=== PATIENT | male | born 1940 | race Caucasian/White ===

== ENCOUNTER 2018-12-24 07:03 | Emergency (ER) | payer MEDICARE ==
[~2018-12-24] VITALS: Ht 172.7 cm; Wt 97.5 kg
--- OUTSIDE RECORDS SUMMARY | ~2018-12-24 | XMS | Encounter Summary ---
Demographics + + + | Address | [address] | | | [place] [address] | + + + | Home Phone | | + + + | Preferred Language | Unknown | + + + | Marital Status | | + + + | Nondenominational Affiliation | Unknown | + + + | Race | Unknown | + + + | Ethnic Group | Unknown | + + + Author + + + | Author | [facility] | + + + | Organization | [facility] | + + + | Address | Unknown | + + + | Phone | Unavailable | + + + Support + + +---------+ + | Name | Relationship | Address | Phone | + + +---------+ + | Johnathan Herr | ECON | Unknown | | + + +---------+ + | Cammie Herr | ECON | Unknown | | + + +---------+ + Care Team Providers + +------+ + | Care Needle Loom Operator Helper Name | Role | Phone | + +------+ + | Josh Mendoza DO | PCP | | + +------+ + Reason for Visit + + + | Reason | Comments | + + + | Cardiac | in office | | Resynchronization | | | Therapy - | | | Defibrillator | | + + + Encounter Details +--------+ + + + + | Date | Type | Department | Care Team | Description | +--------+ + + + + | 10/12/ | Documentati | [facility] | | Cardiac | | 2019 | on Only | [facility] [place] | | Resynchronization | | | | [address] | | Therapy - | | | | [place] | | Defibrillator (in | | | | [phone] | | office) | | | | [phone] | | | +--------+ + + + + Social History + +-------+ +--------+ + | Tobacco Use | Types | Packs/Day | Years | Date | | | | | Used | | + +-------+ +--------+ + | Former Smoker | | 2 | 12 | Quit: 09/27/1971 | + +-------+ +--------+ + + +---+---+---+ | Smokeless Tobacco: | | | | | Never Used | | | | + +---+---+---+ + + +---------+ + | Alcohol Use | Drinks/We | oz/Week | Comments | | | ek | | | + + +---------+ + | Yes | | | very little | + + +---------+ + + + + | Sex Assigned at | Date Recorded | | | | + + + | Not on file | | + + + as of this encounter Progress Notes Catherine Burgess MA - 10/12/2018 9:00 AM PSTDevice interrogation done by Maria R Hardy MD, EP Any events or changes listed in office note. See device data attached to scheduled encounter for additional details. Tech: Catherine Haas [facility] Associated attestation - Juan Hardy MD - 10/31/2018 2:40 PM PSTSee office noted for details.in this encounter Plan of Treatment +--------+ + + + + | Date | Type | Specialty | Care Team | Description | +--------+ + + + + | 01/23/ | Office | Family Medicine | Josh Mendoza | | | 2018 | Visit | | DO Jorge [address] | | | | | [address] | | | | | | [place] [address] | | | | | | [phone] | | | | | | | | +--------+ + + + + | 02/22/ | Office | Cardiology | Juan Hardy | | | 2018 | Visit | | MD Fred[address] | | | | | [address] | | | | | | [place] [address] | | | | | | [phone] | | | | | | | | +--------+ + + + + | 02/22/ | Documentati | Cardiology | | | | 2018 | on Only | | | | +--------+ + + + + as of this encounter Visit Diagnoses + + | Diagnosis | + + | Persistent atrial fibrillation (HCC) - Primary | + + | Atrial fibrillation | + + | Nonischemic cardiomyopathy (HCC) | + + | Other primary cardiomyopathies | + +"
--- OUTSIDE RECORDS SUMMARY | ~2018-12-24 | XMS | Clinical Summary ---
Demographics + + + | Address | [address] | | | [place] [address] | + + + | Home Phone | | + + + | Preferred Language | Unknown | + + + | Marital Status | | + + + | Restorationism Affiliation | Unknown | + + + | Race | Unknown | + + + | Ethnic Group | Unknown | + + + Author + + + | Author | [facility] | | | and [place] | + + + | Organization | [facility] | | | and [place] | + + + | Address | [...] Team Providers + +------+ + | Care Gas Shovel Operator Name | Role | Phone | + +------+ + PP | Unavailable | + +------+ + Allergies Not on File Medications Not on file Active Problems Not on file Social History + +-------+ +--------+------+ | Tobacco Use | Types | Packs/Day | Years | Date | | | | | Used | | + +-------+ +--------+------+ | Never Assessed | | | | | + +-------+ +--------+------+ + + + | Sex Assigned at | Date Recorded | | | | + + + | Not on file | | + + + + + + + | Job Start Date | Occupation | Industry | + + + + | Not on file | Not on file | Not on file | + + + + + + + + | Travel History | Travel Start | Travel End | + + + + + + | No recent travel history available. | + + Plan of Treatment + + + + + | Health Maintenance | Due Date | Last Done | Comments | + + + + + | Vaccine: | | | | | Dtap/Tdap/Td (1 - | 8 | | | | Tdap) | | | | + + + + + | Vaccine: Zoster (1 | | | | | of 2) | 9 | | | + + + + + | Vaccine: | | | | | Pneumococcal 65+ | 4 | | | | Low/Medium Risk (1 | | | | | of 2 - PCV13) | | | | + + + + + | Vaccine: Influenza | | | | | (Season Ended) | 9 | | | + + + + + Results Not on filefrom Last 3 Months"
--- OUTSIDE RECORDS SUMMARY | ~2018-12-24 | XMS | Encounter Summary ---
Demographics + + + | Address | [address] | | | [place] [address] | + + + | Home Phone | | + + + | Preferred Language | Unknown | + + + | Marital Status | | + + + | Muslim Affiliation | Unknown | + + + | Race | Unknown | + + + | Ethnic Group | Unknown | + + + Author + + + | Author | [facility] | + + + | Organization | [facility] | + + + | [...] Team Providers + +------+ + | Care Auto Parts Counter Person Name | Role | Phone | + +------+ + | Josh Mendoza DO | PCP | | + +------+ + Reason for Visit + + + | Reason | Comments | + + + | Medication Refill | | + + + Encounter Details +--------+--------+ + + + | Date | Type | Department | Care Team | Description | +--------+--------+ + + + | 10/03/ | Refill | [facility] | Mariya Bach MA | Medication Refill | | 2019 | | [facility] [place] | | | | | | [address] | | | | | | [place], [place] | | | | | | [address] | | | | | | [phone] | | | +--------+--------+ + + + Social History + +-------+ [...] + + + as of this encounter Plan of Treatment +--------+ + + + + | Date | Type | Specialty | Care Team | Description | +--------+ + + + + | 01/23/ | Office | Family Medicine | Josh Mendoza | | | 2019 | Visit | | DO Jorge [address] | | | | | [address] | | | | | | [place] [address] | | | | | | [phone] | | | | | | | | +--------+ + + + + | 02/22/ | Office | Cardiology | Juan Hardy | | | 2018 | Visit | | MD [address] | | | | | | [address] | | | | | | [place] [address] | | | | | | [phone] | | | | | | | | +--------+ + + + + | 02/22/ | Documentati | Cardiology | | | | 2019 | on Only | | | | +--------+ + + + + as of this encounter Visit Diagnoses Not on filein this encounter"
--- OUTSIDE RECORDS SUMMARY | ~2018-12-24 | XMS | Encounter Summary ---
Demographics + + + | Address | [address] | | | [place] [address] | + + + | Home Phone | | + + + | Preferred Language | Unknown | + + + | Marital Status | | + + + | Christian Affiliation | Unknown | + + + | Race | Unknown | + + + | Ethnic Group | Unknown | + + + Author + + + | Author | [facility] [facility] [employer] [facility] | + + + | Organization | [facility] | + + [...] Team Providers + +------+ + | Care Customer Success Manager Name | Role | Phone | + +------+ + | Josh Mendoza DO | PCP | | + +------+ + Reason for Visit Diagnostic Lab (Routine) +--------+--------+ + + + + | Status | Reason | Specialty | Diagnoses / | Referred By | Referred To | | | | | Procedures | Contact | Contact | +--------+--------+ + + + + | Closed | | Radiology | Diagnoses | Hayley, | [facility] Cath | | | | | Eileen(gregorio | Juan | Lab [address] | | | | | jaziel), D/C, | MD Fredi | [address] | | | | | Consent | [address] | [place], [place] | | | | | signed, | [address] | [id number] Phone: | | | | | BLOODLESS | ALONSO F | [phone] | | | | | MEDICINE | [place], [place] | | | | | | Procedures | [id number] | | | | | | CL | Phone: | | | | | | CARDIOVERSIO | [phone] | | | | | | N / DEFIB | Fax: | | | | | | | [phone] | | +--------+--------+ + + + + Encounter Details +--------+ + + + + | Date | Type | Department | Care Team | Description | +--------+ + + + + | 11/01/ | Hospital | [facility] | Juan Hardy | Persistent atrial | | 2019 | Encounter | [facility] | MD Fredi [address] | fibrillation (HCC) | | | | Lab [address] | [place] | | | | | [place] [address] | [place] [address] | | | | | [phone] | [phone] | | | | | | | | | | | | 6, [facility] Casing Fluid Tender | | +--------+ + + + + [...] + + + as of this encounter Last Filed Vital Signs + + + + | Vital Sign | Reading | Time Taken | + + + + | Blood Pressure | 120/64 | 11/01/2018 4:00 PM PST | + + + + | Pulse | 68 | 11/01/2018 4:00 PM PST | + + + + | Temperature | 36.1 C (96.9 F) | 11/01/2018 2:08 PM PST | + + + + | Respiratory Rate | 17 | 11/01/2018 3:25 PM PST | + + + + | Oxygen Saturation | 99% | 11/01/2018 4:00 PM PST | + + + + | Inhaled Oxygen | - | - | | Concentration | | | + + + + | Weight | - | - | + + + + | Height | - | - | + + + + | Body Mass Index | - | - | + + + + in this encounter Discharge Instructions Nahomy Juárez RN - 11/01/2018Formatting of this note may be different from the jr delmi. Recovery After Procedural Sedation (Adult) You have been given medicine by vein to make you sleep during your procedure. This may have included both a pain medicine and sleeping medicine. Most of the effects have worn off. But you may still have some drowsiness for the next 6 to 8 hours. Home care Follow these guidelines when you get home: For the next 8 hours, you should be watched by a responsible adult. This person should m bayron sure your condition is not getting worse. Don't drink any alcoholfor the next [address], operate dangerous machinery,make important business or personal decisions , or sign legal documentsduring the next 24 hours. Note: Your healthcare provider may tell you not to take any medicine by mouth for pain or s leep in the next 4 hours. These medicines may react with the medicines you were given in the hospital. This could cause a much stronger response than usual. Follow-up care Follow up with your healthcare provider if you are not alert and back to your usual level o f activity within 12 hours. When to seek medical advice Call your healthcare provider right away if any of these occur: Drowsiness gets worse Weakness or dizziness gets worse Repeated vomiting You can't be awakened Date Last Reviewed: 06/30/201619997802-7827 [employer]. [address] [place] [address], [place] [address]. All righ ts reserved. This information is not intended as a substitute for professional medical care. Always follow your healthcare professional's instructions. Discharge Instructions for Cardioversion Your healthcare provider performed a procedure called cardioversion. Your healthcare provid er used a controlled electric shock or a medicine to briefly stop all electrical activity in your heart. This helped restore your heart s normal rhythm. Here are some instructions to follow while you recover. Home care Because cardioversion typically requires sedation, you won't be able to drive home. You will need a ride. Wait at least 24 hours before driving a car or operating heavy machinery a fter receiving sedating medicines. Don t be alarmed if the skin on your chest is irritated or feels like it is sunburned. Your healthcare provider may prescribe a soothing lotion to relieve this discomfort.These minor symptoms will go away in a few days. Ask your healthcare provider about medicines to keep your heart rhythm steady. If you were prescribed medicine, take it as instructed by your healthcare provider. Don t skip doses or take double doses. Cardioversion requires blood thinners for at least 4 we eks to prevent a delayed risk of stroke when treating atrial fibrillation or atrial flutter. Be sure you discuss which medicine you are taking to prevent stroke. Ask when you need to h ave your medicine levels checked, and whether you may be able to stop taking it in the futur e or whether it is recommended that you take it for life. Some of these blood-thinning medic kevin will have the dose adjusted, and interact with other medicines or foods. Your healthcar e team will give you full instructions on what to watch out for. Report bleeding or symptoms of stroke immediately to your healthcare team and seek emergency medical attention. Learn to take your own pulse. Keep a record of your results. Ask your healthcare provide r when you should seek emergency medical attention. He or she will tell you which pulse rate reading is dangerous. Keep in mind this procedure may need to be repeated if the abnormal heart rhythm returns . After the procedure, your healthcare provider will tell you if the treatment worked or if you will need further treatments or medication. Follow-up care Make a follow-up appointment, or as directed. Call 911 Call 911right away if you have: Chest pain Shortness of breath Loss of vision, speech, or strength or coordination in any body part When to call your healthcare provider Call your healthcare provider right away if you: Feel faint,dizzy, or lightheaded Have chest pain with increased activity Have irregular heartbeat or fast pulse Have bleeding issues from blood-thinning medicines Date Last Reviewed: 11/11/201619993294-8658 [employer]. [address] [place] [id number]. All righ ts reserved. This information is not intended as a substitute for professional medical care. Always follow your healthcare professional's instructions. in this encounter Medications at Time of Discharge + + +--------+---------+ + + | Medication | Sig. | Disp. | Refills | Start | End Date | | | | | | Date | | + + +--------+---------+ + + | amiodarone | Take 1 tablet by | 90 | 3 | 10/03/19 | | | (PACERONE) 200 MG | mouth daily. | tablet | | 19 | | | tablet | | | | | | + + +--------+---------+ + + | aspirin 81 MG | Take 81 mg by mouth | | | | | | tablet | daily. | | | | | + + +--------+---------+ + + | carvedilol (COREG) | Take 1 tablet by | | | 10/12/19 | | | 6.25 MG | mouth 2 (two) times | | | 19 | | | tabletIndications: | daily with meals. | | | | | | Persistent atrial | | | | | | | fibrillation (HCC) | | | | | | + + +--------+---------+ + + | ELIQUIS 5 MG | Take 5 mg by mouth 2 | | | 12/13/19 | | | tablet | (two) times daily. | | | 16 | | + + +--------+---------+ + + | finasteride | Take 5 mg by mouth | | | | | | (PROSCAR) 5 MG | daily. | | | | | | tablet | | | | | | + + +--------+---------+ + + | fluticasone | 1 spray by Each Nare | | | | | | (FLONASE) 50 MCG/ACT | route daily. | | | | | | nasal | | | | | | + + +--------+---------+ + + | furosemide (LASIX) | Take 80 mg by mouth. | | | 11/18/19 | | | 40 MG tablet | Take 80mg tablet in | | | 16 | | | | the morning and | | | | | | | 80mg tablet in the | | | | | | | evening | | | | | + + +--------+---------+ + + | ketoconazole | | | | 09/17/19 | | | (NIZORAL) 2 % | | | | 19 | | | shampoo | | | | | | + + +--------+---------+ + + | potassium chloride | Take 10 mEq by mouth | | | | | | (K-DUR) 10 MEQ | daily. | | | | | | tablet | | | | | | + + +--------+---------+ + + | | Take 1 tablet by | | | | | | sacubitril-valsartan | mouth 2 (two) times | | | | | | (ENTRESTO) 49-51 MG | daily. | | | | | | per tablet | | | | | | + + +--------+---------+ + + | spironolactone | Take 50 mg by mouth | | | | | | (ALDACTONE) 50 MG | daily. | | | | | | tablet | | | | | | + + +--------+---------+ + + | tamsulosin | Take 0.4 mg by mouth | | | | | | (FLOMAX) 0.4 MG | 2 (two) times | | | | | | capsule | daily. | | | | | + + +--------+---------+ + + as of this encounter Plan of Treatment +--------+ + + + + | Date | Type | Specialty | Care Team | Description | +--------+ + + + + | 01/23/ | Office | Family Medicine | Josh Mendoza | | | 2018 | Visit | | DO Jorge [address] | | | | | [address] | | | | | | [place] [address] | | | | | | [phone] | | | | | | | | +--------+ + + + + | 02/22/ | Office | Cardiology | Juan Hardy | | | 2018 | Visit | | MD Fredi [address] | | | | | | [address] | | | | | | [place] [address] | | | | | | [phone] | | | | | | | | +--------+ + + + + | 02/22/ | Documentati | Cardiology | | | | 2018 | on Only | | | | +--------+ + + + + as of this encounter Procedures + +--------+ + + + | Procedure Name | Priori | Date/Time | Associated Diagnosis | Comments | | | ty | | | | + +--------+ + + + | CL CARDIOVERSION | Routin | 11/01/2018 | Persistent atrial | Results for this | | DEFIBRILLATION | e | 4:23 PM | fibrillation (HCC) | procedure are in the | | | | PST | | results section. | + +--------+ + + + | EKG STANDARD 12 LEAD | Routin | 11/01/2018 | | Results for this | | | e | 3:28 PM | | procedure are in the | | | | PST | | results section. | + +--------+ + + + | EKG STANDARD 12 LEAD | Routin | 11/01/2018 | | Results for this | | | e | 2:01 PM | | procedure are in the | | | | PST | | results section. | + +--------+ + + + | CBC W/AUTO DIFF | [facility] | 11/01/2018 | | Results for this | | (REFLEX TO MANUAL) | | 2:00 PM | | procedure are in the | | | | PST | | results section. | + +--------+ + + + | BASIC METABOLIC | [facility] | 11/01/2018 | | Results for this | | PANEL | | 2:00 PM | | procedure are in the | | | | PST | | results section. | + +--------+ + + + in this encounter Results EKG STANDARD 12 LEAD (11/01/2018 3:28 PM) + + + + + | Component | Value | Ref Range | Performed At | + + + + + | Ventricular Rate | 72 | BPM | [facility] | + + + + + | Atrial Rate | 68 | BPM | [facility] | + + + + + | P-R Interval | 166 | ms | [facility] | + + + + + | QRS Duration | 150 | ms | [facility] | + + + + + | Q-T Interval | 514 | ms | [facility] | + + + + + | QTC Calculation | 562 | ms | [facility] | | (Bezet) | | | | + + + + + | Calculated R [place] | 179 | degrees | [facility] | + + + + + | Diagnosis | AV dual-paced | | [facility] | | | rhythmAbnormal ECGWhen | | | | | compared with ECG of | | | | | 01-NOV-2018 14:01,Vent. | | | | | rate has decreased | | | | | BY 43 BPMConfirmed by | | | | | MIKEY REEVES MD ([id number]) | | | | | on 11/01/2018 3:48:42 PM | | | + + + + + + + + + + | Performing | Address | City/State/Zipcode | Phone Number | | Organization | | | | + + + + + | [facility] | [address] | [place] [address] | | + + + + + EKG STANDARD 12 LEAD (11/01/2018 2:01 PM) + + + + + | Component | Value | Ref Range | Performed At | + + + + + | Ventricular Rate | 115 | BPM | [facility] | + + + + + | Atrial Rate | 108 | BPM | [facility] | + + + + + | QRS Duration | 138 | ms | [facility] | + + + + + | Q-T Interval | 450 | ms | [facility] | + + + + + | QTC Calculation | 622 | ms | [facility] | | (Bezet) | | | | + + + + + | Calculated R [place] | 8 | degrees | [facility] | + + + + + | Calculated T [place] | 75 | degrees | [facility] | + + + + + | Diagnosis | Ventricular-paced | | [facility] | | | rhythmAbnormal ECGWhen | | | | | compared with ECG of | | | | | 12-OCT-2018 09:03,No | | | | | significant change since | | | | | previous ECG Confirmed | | | | | by MIKEY REEVES MD | | | | | ([id number]) on 11/01/2018 | | | | | 3:46:41 PM | | | + + + + + + + + + + | Performing | Address | City/State/Zipcode | Phone Number | | Organization | | | | + + + + + | [facility] | [address] | [place] [address] | | + + + + + CBC w/auto diff (reflex to manual) (11/01/2018 2:00 PM) + + + + + | Component | Value | Ref Range | Performed At | + + + + + | WBC | 5.19 | 3.80 - 11.00 K/uL | [facility] | + + + + + | RBC | 4.07 (L) | 4.20 - 5.70 M/uL | [facility] | + + + + + | HGB | 13.5 | 13.2 - 17.0 g/dL | [facility] | + + + + + | HCT | 38.6 (L) | 39.0 - 50.0 % | [facility] | + + + + + | MCV | 94.8 | 80.0 - 100.0 fl | [facility] | + + + + + | MCH | 33.1 | 27.0 - 34.0 pg | [facility] | + + + + + | MCHC | 34.9 | 32.0 - 35.5 g/dL | [facility] | + + + + + | RDW SD | 49.0 | 37 - 53 fl | [facility] | + + + + + | PLT | 180 | 150 - 400 K/uL | [facility] | + + + + + | MPV | 6.9 | fl | [facility] | + + + + + | DIFF TYPE | AUTOMATED | | [facility] | + + + + + | NEUTROPHILS | 56.99 | % | [facility] | + + + + + | LYMPHOCYTES | 29.83 | % | [facility] | + + + + + | MONOCYTES | 9.87 | % | [facility] | + + + + + | EOSINOPHILS | 2.52 | % | [facility] | + + + + + | BASOPHILS | 0.79 | % | [facility] | + + + + + | NEUTROPHILS ABS | 2.96 | 1.90 - 7.40 K/uL | [facility] | + + + + + | LYMPHOCYTES ABS | 1.55 | 1.00 - 3.90 K/uL | [facility] | + + + + + | MONOCYTES ABS | 0.51 | 0.00 - 0.80 K/uL | [facility] | + + + + + | EOSINOPHILS ABS | 0.13 | 0.00 - 0.50 K/uL | [facility] | + + + + + | BASOPHILS ABS | 0.04Comment: Testing | 0.00 - 0.10 K/uL | [facility] | | | performed at [facility];[address] | | | | | [address];[place] | | | | | [address] | | | + + + + + + + | Specimen | + + | Blood | + + + + + + + | Performing | Address | City/State/Zipcode | Phone Number | | Organization | | | | + + + + + | [facility] | [address] | [place] [address] | | + + + + + Basic metabolic panel (11/01/2018 2:00 PM) + + + + + | Component | Value | Ref Range | Performed At | + + + + + | SODIUM | 144 | 135 - 145 mmol/L | [facility] | + + + + + | POTASSIUM | 4.5 | 3.5 - 4.9 mmol/L | [facility] | + + + + + | CHLORIDE | 106 | 99 - 109 mmol/L | [facility] | + + + + + | CO2 | 29 | 23 - 32 mmol/L | [facility] | + + + + + | ANION GAP AGAP | 14 | 5 - 20 mmol/L | [facility] | + + + + + | GLUCOSE | 99 | 65 - 99 mg/dL | [facility] | + + + + + | BUN | 39 (H) | 8 - 25 mg/dL | [facility] | + + + + + | CREATININE | 1.31 (H) | 0.70 - 1.30 mg/dL | [facility] | + + + + + | BUN/CREAT | 30 | | [facility] | + + + + + | CALCIUM | 9.1 | 8.5 - 10.5 mg/dL | [facility] | + + + + + | EGFR | 53 (L)Comment: GFR <60: | >60 mL/min/1.73m2 | [facility] | | | CHRONIC KIDNEY DISEASE, | | | | | IF FOUND OVER A 3 MONTH | | | | | PERIOD.GFR <15: KIDNEY | | | | | FAILURE.FOR | | | | | AMERICANS, MULTIPLY THE | | | | | CALCULATED GFR BY | | | | | 1.210.This eGFR is | | | | | calculated using the | | | | | MDRD IDMS traceable | | | | | equation.Testing | | | | | performed at [facility];[address] | | | | | [address];[place], [place] | | | | | [address] | | | + + + + + + + | Specimen | + + | Blood | + + + + + + + | Performing | Address | City/State/Zipcode | Phone Number | | Organization | | | | + + + + + | [facility] | [address] | [place] [address] | | + + + + + in this encounter Visit Diagnoses + + | Diagnosis | + + | Persistent atrial fibrillation (HCC) | + + | Atrial fibrillation | + + Admitting Diagnoses + + | Diagnosis | + + | Persistent atrial fibrillation (HCC) | + + | Atrial fibrillation | + + Administered Medications + +---------+ +------+ +------+ | Medication Order | MAR | Action | Dose | Rate | Site | | | Action | Date | | | | + +---------+ +------+ +------+ | sodium chloride 0.9 % infusion | New Bag | | | 10 mL/hr | | | at 10 mL/hr, Intravenous, | | 9 14:16 | | | | | Continuous, Starting 11/01/18 | | PST | | | | | at 1400, Pre-op | | | | | | + +---------+ +------+ +------+ +---------+ +---+---+---+ | New Bag | 2/201 | | | | | | 9 15:11 | | | | | | PST | | | | +---------+ +---+---+---+ +---+---+ | | | +---+---+ in this encounter"
--- OUTSIDE RECORDS SUMMARY | ~2018-12-24 | XMS | Encounter Summary ---
Demographics + + + | Address | [address] | | | [place] [address] | + + + | Home Phone | | + + + | Preferred Language | Unknown | + + + | Marital Status | | + + + | Baptism Affiliation | Unknown | + + + | Race | Unknown | + + + | Ethnic Group | Unknown | + + + Author + + + | Author | [employer] [employer] | + + + | Organization | [facility] | + + + | [...] Team Providers + +------+ + | Care Pleater Hand Name | Role | Phone | + +------+ + | Josh Mendoza DO | PCP | | + +------+ + Encounter Details +--------+---------+ + + + | Date | Type | Department | Care Team | Description | +--------+---------+ + + + | 12/09/ | Surgery | [facility] | Alex San MD | CYSTOSCOPY - TURB | | 2019 | | [facility] | [address], | | | | | Operating Room [address] | [address] | | | | | [address] | [id number] | | | | | [place] [address] | | | | | | [phone] | | | +--------+---------+ + + + Social History + +-------+ [...] + + + | Blood Pressure | 106/62 | 12/09/2018 1:00 PM PDT | + + + + | Pulse | 75 | 12/09/2018 12:45 PM PDT | + + + + | Temperature | 36 C (96.8 F) | 12/09/2018 12:30 PM PDT | + + + + | Respiratory Rate | 20 | 12/09/2018 12:30 PM PDT | + + + + | Oxygen Saturation | 98% | 12/09/2018 12:45 PM PDT | + + + + | Inhaled Oxygen | - | - | | Concentration | | | + + + + | Weight | 93.8 kg (206 lb 12.7 | 12/09/2018 8:20 AM PDT | | | oz) | | + + + + | Height | 172.7 cm (5' 8") | 12/09/2018 8:20 AM PDT | + + + + | Body Mass Index | 31.44 | 12/09/2018 8:20 AM PDT | + + + + in this encounter Discharge Instructions Thompson Belcher RN - 12/09/2018Formatting of this note may be different from the original . Make a follow up appointment next Wednesday with Dr. San. Resume Enoc on Wednesday. Discharge Instructions for Transurethral Resection ofBladder Tumor (TURBT) You had a procedure called aresection ofbladder tumor (surgeryto remove a bladder kevin or). During the surgery, a surgeon inserteda thin, lighted tube (cystoscope) into the blad sascha through the urethra (the part of your body that carries urine from the bladder to the ou tside of the body).The surgeon used a tool to eitherremove the cancer or burnit away w ith high-energy electricity. Home care Take care of your catheter the way you were shown in the hospital. You will need to wash the tubing at least twice a day. Don t be alarmed by brownish or reddishblood or clots in your urine. This is a resul t of the procedure. However, call your doctor if the blood does not start to go away within 72 hours after you go home. Drink plenty of fluids during the day (enough to keep your urine very light colored). Th is will help keep a healthy flow of urine. Don t drive until the doctor says it s OK. Don t return to work until the doctor says it s OK. Don t do any heavy lifting for 3weeks after the procedure. Don t lift anything heavier than 8pounds. Don t lift weights. Don t picker/puller infants or children. Don t mow the lawn or use a vacuum swimming pool cleaner. Avoid constipation. Use a laxative or stool softener as directed by your doctor. Eat more high-fiber foods. Be sure to finish the antibiotics that your doctor prescribed. Once your catheter is removed, expect some blood in your urine and some burning when you urinate. Follow-up care Make a follow-up appointment, or as directed by your doctor. When to call your healthcare provider Call yourhealthcare providerright away if you have any of the following: Heavy bleeding or large blood clots in the urine Blood in the urine after 3 days Catheter falls out or stops draining Fever above 100.4F (38C)or shaking chills Trouble urinating Pain or cramping in the abdomen that won t go away Date Last Reviewed: 09/13/201619999949-2702 [employer]. [address] [place] [address]. All righ ts reserved. This information is not intended as a substitute for professional medical care. Always follow your healthcare professional's instructions. Maharaj Catheter Care A Maharaj catheter is a rubber tube that is placed through the urethra (opening where urine c omes out) and into the bladder. This helps drain urine from the bladder. There is a small ba lloon on the end of the tube that is inflated after insertion. This keeps the catheter from sliding out of the bladder. A Maharaj catheter is used to treat urinary retention (unable to pass urine). It is also used when there is incontinence (loss of bladder control). Home care Finish taking any prescribed antibiotic even if you are feeling better before then. It is important to keep bacteria from getting into the collection bag. Do not disconnect the catheter from the collection bag. Use a leg band to secure the drainage tube, so it does not pull on the catheter. Drain t he collection bag when it becomes full using the drain spout at the bottom of the bag. Do not try to pull or remove your catheter. This will injure your urethra. It must be re moved by your healthcare provider or nurse. Follow-up care Follow up with your healthcare provider as advised for repeat urine testing and catheter re moval or replacement. When to seek medical advice Call your healthcare provider right away if any of these occur: Fever of 100.4F (38C) or higher, or as directed by your healthcare provider Bladder pain or fullness Abdominal swelling, nausea or vomiting, or back pain Blood or urine leakage around the catheter Bloody urine coming from the catheter (if a new symptom) Catheter falls out Catheter stops draining for 6 hours Weakness, dizziness, or fainting Date Last Reviewed: 06/13/201619991674-7310 [employer]. [address] [place] [address]. All righ ts reserved. This information is not intended as a substitute for professional medical care. Always follow your healthcare professional's instructions. Acetaminophen; Hydrocodone tablets or capsules Brand Names: Anexsia, Lorcet, Lorcet HD, Lorcet Plus, Lortab, [place], Verdrocet, Vicodin, Vi codin ES, Vicodin HP, Xodol What is this medicine? ACETAMINOPHEN; HYDROCODONE (a set a YANNI breanne fen; cherrie droe KOE done) is a pain reliever. It is used to treat moderate to severe pain. How should I use this medicine? Take this medicine by mouth with a glass of water. Follow the directions on the prescriptio n label. You can take it with or without food. If it upsets your stomach, take it with food. Do not take your medicine more often than directed. A special MedGuide will be given to you by the pharmacist with each prescription and refill . Be sure to read this information carefully each time. Talk to your coloring room worker regarding the use of this medicine in children. Special care may be needed. What side effects may I notice from receiving this medicine? Side effects that you should report to your doctor or health reproductive healthcare assistant as soon as p ossible: allergic reactions like skin rash, itching or hives, swelling of the face, lips, or tong ue breathing problems confusion redness, blistering, peeling or loosening of the skin, including inside the mouth signs and symptoms of low blood pressure like dizziness; feeling faint or lightheaded, f alls; unusually weak or tired trouble passing urine or change in the amount of urine yellowing of the eyes or skin Side effects that usually do not require medical attention (report to your doctor or health reproductive healthcare assistant if they continue or are bothersome): constipation dry mouth nausea, vomiting tiredness What may interact with this medicine? This medicine may interact with the following medications: alcohol antiviral medicines for HIV or AIDS atropine antihistamines for allergy, cough and cold certain antibiotics like erythromycin, clarithromycin certain medicines for anxiety or sleep certain medicines for bladder problems like oxybutynin, tolterodine certain medicines for depression like amitriptyline, fluoxetine, sertraline certain medicines for fungal infections like ketoconazole and itraconazole certain medicines for Parkinson's disease like benztropine, trihexyphenidyl certain medicines for seizures like carbamazepine, phenobarbital, phenytoin, primidone certain medicines for stomach problems like dicyclomine, hyoscyamine certain medicines for travel sickness like scopolamine general anesthetics like halothane, isoflurane, methoxyflurane, propofol ipratropium local anesthetics like lidocaine, pramoxine, tetracaine MAOIs like Carbex, Eldepryl, Marplan, Nardil, and Parnate medicines that relax muscles for surgery other medicines with acetaminophen other narcotic medicines for pain or cough phenothiazines like chlorpromazine, mesoridazine, prochlorperazine, thioridazine rifampin What if I miss a dose? If you miss a dose, take it as soon as you can. If it is almost time for your next dose, ta ke only that dose. Do not take double or extra doses. Where should I keep my medicine? Keep out of the reach of children. This medicine can be abused. Keep your medicine in a saf e place to protect it from theft. Do not share this medicine with anyone. Selling or giving away this medicine is dangerous and against the law. Store at room temperature between 15 and 30 degrees C (59 and 86 degrees F). This medicine may cause harm and if it is taken by other adults, children, or pets. R eturn medicine that has not been used to an official disposal site. Contact the [employer] at [phone] or your [facility] government to find a site. If you cannot return the medicine, flush it down the toilet. Do not use the medicine after the expiration date. What should I tell my health care provider before I take this medicine? They need to know if you have any of these conditions: brain tumor Crohn's disease, inflammatory bowel disease, or ulcerative colitis drug abuse or addiction head injury heart or circulation problems if you often drink alcohol kidney disease or problems going to the bathroom liver disease lung disease, asthma, or breathing problems an unusual or allergic reaction to acetaminophen, hydrocodone, other opioid analgesics, other medicines, foods, dyes, or preservatives or trying to get breast-feeding What should I watch for while using this medicine? Tell your doctor or health reproductive healthcare assistant if your pain does not go away, if it gets wors e, or if you have new or a different type of pain. You may develop tolerance to the medicine . Tolerance means that you will need a higher dose of the medicine for pain relief. Toleranc e is normal and is expected if you take the medicine for a long time. Do not suddenly stop taking your medicine because you may develop a severe reaction. Your b radha becomes used to the medicine. This does NOT mean you are addicted. Addiction is a behavi or related to getting and using a drug for a non-medical reason. If you have pain, you have a medical reason to take pain medicine. Your doctor will tell you how much medicine to take. If your doctor wants you to stop the medicine, the dose will be slowly lowered over time to avoid any side effects. There are different types of narcotic medicines (opiates). If you take more than one type a t the same time or if you are taking another medicine that also causes drowsiness, you may h ave more side effects. Give your health care provider a list of all medicines you use. Your doctor will tell you how much medicine to take. Do not take more medicine than directed. Doug chantel emergency for help if you have problems breathing or unusual sleepiness. Do not take other medicines that contain acetaminophen with this medicine. Always read brian tompkins carefully. If you have questions, ask your doctor or pharmacist. If you take too much acetaminophen get medical help right away. Too much acetaminophen can be very dangerous and cause liver damage. Even if you do not have symptoms, it is important to get help right away. You may get drowsy or dizzy. Do not drive, use machinery, or do anything that needs mental alertness until you know how this medicine affects you. Do not stand or sit up quickly, more cially if you are an older patient. This reduces the risk of dizzy or fainting spells. Alcoh ol may interfere with the effect of this medicine. Avoid alcoholic drinks. The medicine will cause constipation. Try to have a bowel movement at least every 2 to 3 da ys. If you do not have a bowel movement for 3 days, call your doctor or health care mehnaz delgado. Your mouth may get dry. Chewing sugarless gum or sucking hard candy, and drinking plenty of water may help. Contact your doctor if the problem does not go away or is severe. NOTE:This sheet is a summary. It may not cover all possible information. If you have questi ons about this medicine, talk to your doctor, pharmacist, or health care provider. Copyright 2019 [employer] After Your Surgery You ve just had surgery. During surgery, you received medication called anesthesia to louie p you comfortable and pain-free. After surgery, you may experience some pain or nausea. This is common. Going Home Have an adult family member or friend drive you home. For the first 24 hours after your armando stephane: ? Do not drive or use heavy equipment. ? Do not make important decisions or sign legal documents. ? Avoid alcohol. ? Have someone stay with you, if needed. He or she can watch for problems and help keep you safe. Be sure to keep all follow-up appointments with your doctor. And rest after your procedure for as long as your doctor tells you to. Coping with Pain If you have pain after surgery, pain medication will help you feel better. Take your medica tion as directed, before pain becomes severe. Consider other ways to control pain, such as with heat, ice, and relaxation. To get the best relief possible, remember these points: ? Pain medications can upset your stomach. Taking them with a little food may help. ? Most pain relievers taken by mouth need at least 20 to 30 minutes to take effect. ? Taking medication on a schedule can help you remember to take it. Try to time your medica tion so that you can take it before beginning an activity, such as dressing, walking, or sit ting down for dinner. ? Don t drink alcohol while taking pain medication. ? Don t drive or operate machinery while taking pain medications as they can slow your re flexes. If your health care provider tells you to take acetaminophen or ibuprofen to help relieve y our pain, ask him or her how much you are supposed to take each day. Constipation ? Constipation is a common side effect of pain medications and anesthetics. Contact your do ctor before taking any medications like laxatives or stool softeners to help relieve constip ation, unless they have been prescribed for you. ? Drinking lots of non-alcoholic fluids and eating foods like fruits and vegetables that ar e high in fiber can also help. Managing Nausea Some people have an upset stomach after surgery. This is often due to anesthesia, pain, leonor n medications, or the stress of surgery. If you were on a special diet before surgery, ask your doctor if you should follow it during recovery. These tips may help: ? Don t push yourself to eat. Your body will tell you when to eat and how much. ? Start off with clear liquids and soup. They are easier to digest. Slowly move to solid f oods. Don t eat fatty, rich, or spicy foods at first. ? Don t force yourself to have three large meals a day. Instead, eat smaller amounts more often. Blood Clot Prevention Deep vein thrombosis (DVT) is a clot that forms in your deep veins usually in the leg o r thigh. A pulmonary embolism (PE) occurs when a clot in the bloodstream travels through th e heart and into the lungs. If the clot becomes stuck in a blood vessel in the lungs, blood flow can be blocked which causes life-threatening heart and lung problems. The following are prevention tips: ? Elevate your legs whenever they feel swollen or heavy ? Maintain a healthy weight ? Quit smoking ? Avoid sitting, standing, or lying down for long periods without moving your legs and feet . o When traveling by car, make frequent stops to get out and move around. o On long airplane, train, or bus rides, get up and move around when possible. o If you can t get up, wiggle your toes and tighten your calves to keep your blood moving . If you have any of these symptoms of DVT or PE, call your doctor: ? Swelling, pain, or both, often in one limb ? Redness or warmth, often in one limb ? Sudden, continuous pain deep in your muscle ? Worsening ache when you are active or when you stand still for a long time ? Rapid, pounding, or unusual heartbeat ? Sweating more than usual. ? Chest pain, trouble breathing, coughing up blood, skin turning blue, or fainting Call 911. in this encounter Medications at Time of [...] | | Take 1 tablet by | 15 | 0 | 12/10/19 | | | HYDROcodone-acetamin | mouth every 6 (six) | tablet | | 19 | | | ophen (NORCO) 5-325 | hours as needed for | | | | | | MG per tablet | Pain. | | | | | + + [...] | | | | | [address] | | | | | | [place] [address] | | | | | | [phone] | | | | | | | | +--------+ + + + + | 02/22/ | Office | Cardiology | Juan Hardy | | | 2018 | Visit | | MD [address] | | | | | | [address] | | | | | | [place] [address] | | | | | | [phone] | | | | | | | [...] | + +--------+ + + + | PATHOLOGY HISTOLOGY | Routin | 12/09/2018 | Benign bladder | Results for this | | - TISSUE | e | 1:00 PM | mass | procedure are in the | | | | PDT | | results section. | + +--------+ + + + | OR UROLOGY SCOPE | Routin | 12/09/2018 | | Results for this | | IMAGING | e | 10:28 AM | | procedure are in the | | | | PDT | | results section. | + +--------+ + + + | CYSTOSCOPY - TURB | | 12/09/2018 | Benign bladder | | | | | 8:45 AM | mass | | | | | PDT | | | + +--------+ + + + +---+--------+ | | | | | Specia | | | l | | | Needs | | | | | | Bloodl | | | ess | | | medici | | | ne | | | patien | | | t, | | | Pacema | | | ker/IC | | | D rep | | | notifi | | | ed | +---+--------+ in this encounter Results Pathology histology - tissue (12/09/2018 1:00 PM) + + | Specimen | + + | Tissue | + + + + + | Narrative | Performed At | + + + | SPECIMEN(S): A BLADDER TUMOR SPECIMEN SOURCE: A. BLADDER TUMOR | [facility] | | CLINICAL HISTORY: Bladder tumor. 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 - Extent of invasion: Tumor is noninvasive. | | | - Lymphovascular invasion: Not identified. | | | - Muscle: Present and uninvolved by tumor. 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 COMMENT: As part of [employer]' Quality Improvement | | | Program, this case was reviewed by another member of our pathology | | | staff. AMB:DD:emb:C1NR MICROSCOPIC EXAMINATION: Histologic | | | sections of all submitted blocks are examined by light | | | microscopy. These findings, together with the gross examination, | | | support the pathologic diagnosis. GROSS DESCRIPTION: The specimen, | | | labeled "DP, bladder tumor," is received in formalin and consists of | | | irregular shaped, pink-sumner, rubbery tissue fragments that aggregate | | | measure 3.8 x 2.7 x 0.8 cm. The specimen weighs 2.8 g. Specimen | | | is entirely submitted in cassettes (A1-A2). JS (under the direct | | | supervision of a pathologist) The Gross Description was prepared | | | using a voice recognition system. The report was reviewed for | | | accuracy; however, sound-alike word errors, addition and/or deletions | | | may occur. If there is any question about this report, please | | | contact Client Services. PERFORMING LABORATORY: The technical | | | component was performed by [facility], [address] [place] [address], | | | [facility] [id number] (Warehouse Helper: Lorraine Ku MD; CLIA# [id number]). | | | Professional interpretation was performed by [employer], | | | [facility], [address] [place] [id number] | | | (Warehouse Helper: Radu Velasco M.D.; DELILAH#: [id number]). | | | Diagnostician: Lorraine Ku MD Pathologist Electronically Signed | | | 12/12/2018 | | + + + + +---------+ + + | Performing | Address | City/State/Zipcode | Phone Number | | Organization | | | | + +---------+ + + | [facility] | | | | + +---------+ + + OR Urology Scope Imaging (12/09/2018 10:28 AM) + + + | Narrative | Performed At | + + + | This is a non-reportable procedure without a radiologist report and | [facility] | | is used for image storage only. Please review the OR procedure | RADIOLOGY | | report for details on the procedure. | | + + + + + + + + | Performing | Address | City/State/Zipcode | Phone Number | | Organization | | | | + + + + + | [facility] | [address] | [place] [address] | | + + + + + in this encounter Visit Diagnoses Not on filein this encounter Admitting Diagnoses + + | Diagnosis | + + | Benign bladder mass | + + | Benign neoplasm of bladder | + + Administered Medications + +--------+---------+------+------+------+ | Medication Order | MAR | Action | Dose | Rate | Site | | | Action | Date | | | | + +--------+---------+------+------+------+ + +---+ | acetaminophen (TYLENOL) | | | suppository 650 mg 650 mg, | | | Rectal, Every 6 Hours PRN, Mild | | | Pain (1-3), Fever, Starting Fri | | | 12/09/18 at 1054 | | + +---+ | | | + +---+ | acetaminophen (TYLENOL) tablet | | | 650 mg 650 mg, Oral, Every 6 | | | Hours PRN, Mild Pain (1-3), | | | Fever, Starting 12/09/18 at | | | 1054 | | + +---+ | | | + +---+ | fentaNYL (SUBLIMAZE) injection | | | 25 mcg 25 mcg, Intravenous, | | | Every 5 Min PRN, Pain, Option One | | | for pain scale 1-4/10. If no | | | relief, proceed to option 2., | | | Starting Wed12/09/18 at 1003, | | | PACU | | + +---+ | | | + +---+ | fentaNYL (SUBLIMAZE) injection | | | 50 mcg 50 mcg, Intravenous, | | | Every 5 Min PRN, Pain, Option One | | | for pain scale 5-10/10. If no | | | relief, proceed to option 2., | | | Starting Wed12/09/18 at 1003, | | | PACU | | + +---+ | | | + +---+ | HYDROmorphone (DILAUDID) | | | injection 0.25 mg 0.25 mg, | | | Intravenous, Every 5 Min PRN, | | | Pain, Option Two for pain scale | | | 1-4/10.If no relief, proceed to | | | option 3., Starting 12/09/18 | | | at 1003, PACU | | + +---+ | | | + +---+ | HYDROmorphone (DILAUDID) | | | injection 0.5 mg 0.5 mg, | | | Intravenous, Every 5 Min PRN, | | | Pain, Option Two for pain scale | | | -06/22. If no relief, proceed to | | | option 3., Starting 12/09/18 | | | at 1003, PACU | | + +---+ | | | + +---+ | labetalol (NORMODYNE) 5 mg/mL | | | injection 20 mg 20 mg, | | | Intravenous, Every 10 Min PRN, | | | For MAP greater than 100, | | | Starting 12/09/18 at 1003, | | | PACU | | + +---+ | | | + +---+ | meperidine (DEMEROL) injection | | | 25 mg 25 mg, Intravenous, Every | | | 15 Min PRN, shivering, Starting | | | 12/09/18 at 1003, For 2 doses, | | | PACU | | + +---+ | | | + +---+ | metoclopramide (REGLAN) | | | injection 10 mg 10 mg, | | | Intravenous, Once PRN, Heartburn, | | | Option One for nausea or | | | vomiting. , Starting Wed12/09/18 | | | at 1003, For 1 dose, PACU | | + +---+ | | | + +---+ | midazolam (VERSED) injection 1 | | | mg 1 mg, Intravenous, Every 10 | | | Min PRN, for agitation or | | | anxiety, Starting Wed12/09/18 at | | | 1003, For 2 doses, PACU | | + +---+ | | | + +---+ | naloxone (NARCAN) injection 0.1 | | | mg 0.1 mg, Intravenous, PRN, | | | Opioid Reversal, if RR < 6, | | | Starting Wed12/09/18 at 1003, | | | PACU | | + +---+ | | | + +---+ | ondansetron (ZOFRAN) injection | | | 4 mg 4 mg, Intravenous, PRN, | | | Nausea, Vomiting, Option two for | | | nausea or vomiting, Starting Fri | | | 12/09/18 at 1003, For 2 doses, | | | PACU | | + +---+ | | | + +---+ | ondansetron (ZOFRAN) injection | | | 4 mg 4 mg, Intravenous, Every 6 | | | Hours PRN, Nausea, Vomiting, | | | Starting 12/09/18 at 1054 | | + +---+ | | | + +---+ | ondansetron (ZOFRAN-ODT) | | | disintegrating tablet 4 mg 4 mg, | | | Oral, Every 6 Hours PRN, Nausea, | | | Vomiting, Starting 12/09/18 | | | at 1054 | | + +---+ | | | + +---+ + +-------+ +-------+---+---+ | opium-belladonna (B&O | Given | | 60 mg | | | | SUPPRETTES) 16.2-60 MG | | 9 10:22 | | | | | suppository PRN, Starting Fri | | PDT | | | | | 12/09/18 at 1022, Intra-op | | | | | | + +-------+ +-------+---+---+ + +---+ | | | + +---+ | promethazine (PHENERGAN) IVPB | | | 6.25 mg 6.25 mg, Intravenous, | | | Administer over 15 Minutes, PRN, | | | Nausea, Vomiting, Option three | | | for nausea or vomiting, Starting | | | 12/09/18 at 1003, For 2 doses, | | | May repeat x 1 dose after 15 | | | minutes. Notify Pharmacy to send | | | promethazine IVPB dose. If no | | | relief in 10 minutes, notify | | | provider. | | + +---+ | | | + +---+ | sodium chloride (PF) 0.9 % | | | flush 10 mL 10 mL, Intravenous, | | | Every 8 Hours PRN, Line Care, | | | when tolerating oral fluids, | | | Starting 12/09/18 at 1054 | | + +---+ | | | + +---+ in this encounter
--- OUTSIDE RECORDS SUMMARY | ~2018-12-24 | XMS | Clinical Summary ---
Demographics + + + | Address | [address] | | | [place] [address] | + + + | Home Phone | | + + + | Preferred Language | Unknown | + + + | Marital Status | | + + + | Restorationist Affiliation | Unknown | + + + | Race | Unknown | + + + | Ethnic Group | Unknown | + + + Author + + + | Author | [facility] | | | and Daveyana | + + + | Organization | [facility] | | | and [...] Team Providers + +------+ + | Care Joint Finisher Name | Role | Phone | + [...]
--- OUTSIDE RECORDS SUMMARY | ~2018-12-24 | XMS | Encounter Summary ---
Demographics + + + | Address | [address] | | | [place] [address] | + + + | Home Phone | | + + + | Preferred Language | Unknown | + + + | Marital Status | | + + + | Sikh Affiliation | Unknown | + + + | Race | Unknown | + + + | Ethnic Group | Unknown | + + + Author + + + | Author | [facility] [employer] [facility] | + + + | Organization | [facility] | + + + | [...] Team Providers + +------+ + | Care Caustic Purification Operator Name | Role | Phone | + +------+ + | Josh Mendoza DO | PCP | | + +------+ + Encounter Details +--------+ + + + + | Date | Type | Department | Care Team | Description | +--------+ + + + + | 12/08/ | Orders Only | [facility] | Alex San MD | | | 2019 | | [facility] | [address], | | | | | [address] | [facility] | | | | | [place] [address] | [address] | | | | | [phone] | | | +--------+ + + + [...] | | | | | [address] | | | | | | [place] [address] | | | | | | [phone] | | | | | | | | +--------+ + + + + | 02/22/ | Office | Cardiology | Juan Hardy | | | 2019 | Visit | | [address] | | | | | | [address] | | | | | | [place] [address] | | | | | | [phone] | | | | | | | | +--------+ + + + + | 02/22/ | Documentati | Cardiology | | | | 2019 | on Only | | | | +--------+ + + + + as of this encounter Visit Diagnoses Not on filein this encounter"
--- OUTSIDE RECORDS SUMMARY | ~2018-12-24 | XMS | Encounter Summary ---
Demographics + + + | Address | [address] | | | [place] [address] | + + + | Home Phone | | + + + | Preferred Language | Unknown | + + + | Marital Status | | + + + | Rastafari Affiliation | Unknown | + + + | Race | Unknown | + + + | Ethnic Group | Unknown | + + + Author + + + | Author | [facility] [employer] [facility] | + + + | Organization | [facility] | + + [...] Team Providers + +------+ + | Care Giant Tire Repairer Name | Role | Phone | + +------+ + | Johs Mendoza DO | PCP | | + +------+ + Encounter Details +--------+ + + + + | Date | Type | Department | Care Team | Description | +--------+ + + + + | 12/09/ | Procedure | [facility] | | | | 2019 | [facility] | [facility] | | | | | | Operating Room [address] | | | | | | [address] | | | | | | [place] [address] | | | | | | [phone] | | | +--------+ + + + [...] | | | | | [address] | | | | | | [place] [address] | | | | | | [phone] | | | | | | | | +--------+ + + + + | 02/22/ | Office | Cardiology | Juan Hardy | | | 2019 | Visit | | [address] | | | | | | [address] | | | | | | [place] [address] | | | | | | [phone] | | | | | | | | +--------+ + + + + | 02/22/ | Documentati | Cardiology | | | | 2019 | on Only | | | | +--------+ + + + + as of this encounter Visit Diagnoses Not on filein this encounter"
--- OUTSIDE RECORDS SUMMARY | ~2018-12-24 | XMS | Encounter Summary ---
Demographics + + + | Address | [address] | | | [place] [address] | + + + | Home Phone | | + + + | Preferred Language | Unknown | + + + | Marital Status | | + + + | Evangelical Affiliation | Unknown | + + + | Race | Unknown | + + + | Ethnic Group | Unknown | + + + Author + + + | Author | [facility] [employer] [facility] | + + + | Organization | [facility] | + + + [...] Team Providers + +------+ + | Care Superintendent Fish Hatchery Name | Role | Phone | + +------+ + | Josh Mendoza DO | PCP | | + +------+ + Encounter Details +--------+ + + + + | Date | Type | Department | Care Team | Description | +--------+ + + + + | 12/09/ | Anesthesia | [facility] | Tariq Mullins, | | | 2019 | Event | [facility] | [facility] [address] | | | | | Operating Room [address] | [place] [address] | | | | | [address] | | | | | | [place] [address] | | | | | | [phone] | | | +--------+ + + + + Anesthesia Record + + + + + | Procedure Name | Responsible | Anesthesia Start | Anesthesia Stop Time | | | Anesthesiologist | Time | | + + + + + | CYSTOSCOPY - TURB | Tariq Mullins, | 12/09/18 0912 | 12/09/18 1036 | | (N/A Urethra) | [facility] | | | + + + + + +----+---+ + + | Da | T | Event | Comment | | te | i | | | | | m | | | | | e | | | +----+---+ + + | 03 | 0 | An Start | Pre-anesthetic vital signs reassessed. | | /2 | 9 | | | | 9/ | 1 | | | | 20 | 2 | | | | 19 | | | | +----+---+ + + | | 0 | An | | | | 9 | Induction | | | | 1 | | | | | 2 | | | +----+---+ + + | | 0 | An Start | | | | 9 | Data | | | | 1 | | | | | 2 | | | +----+---+ + + | | 0 | An | | | | 9 | Intubation | | | | 1 | | | | | 7 | | | +----+---+ + + | | 0 | No Abx | | | | 9 | | | | | 3 | | | | | 4 | | | +----+---+ + + | | 1 | An | | | | 0 | Emergence | | | | 2 | | | | | 3 | | | +----+---+ + + | | 1 | Extubation | | | | 0 | | | | | 2 | | | | | 8 | | | +----+---+ + + | | 1 | an stop | | | | 0 | data | | | | 3 | | | | | 0 | | | +----+---+ + + | | 1 | An Stop | | | | 0 | | | | | 3 | | | | | 6 | | | +----+---+ + + +------+ | Meds | +------+ + +--------+ | Name | Total | + +--------+ | fentanyl 50 mcg/mL | 50 mcg | + +--------+ | propofol bolus | 150 mg | + +--------+ | ROCuronium 10 mg/mL | 40 mg | + +--------+ | dexamethasone 4 mg/mL | 4 mg | + +--------+ | ondansetron 2 mg/mL | 4 mg | + +--------+ | ePHEDrine 5 mg/mL | 5 mg | + +--------+ | glycopyrrolate 0.2 mg/mL | 0.4 mg | + +--------+ | neostigmine | 2 mg | + +--------+ | ciprofloxacin (CIPRO) IVPB 400 mg | 400 mg | + +--------+ | plasmalyte-A | 800 mL | + +--------+ + + | Name | + + | N2O | + + | O2 | + + | Air | + + | Sevoflurane-EX | + + | N2O | + + + + | No blood administrations on file. | + + +--------+ + + + | Type | Details | Placement | Removal | +--------+ + + + | Wound | 02/17/16; 2099; Yes; Other | 02/17/162099 by | | | | (Comment) (Shingles crusting); | Kimmy | | | | Face (forhead down bridge nose | DAVID Jones | | | | around lt. eye); Left; Yes | | | +--------+ + + + | Wound | 06/21/18; 0100; Yes; Cellulitis; | 06/21/18 0100 by | | | | Ankle; Bilateral; Yes | Sara Lundy, | | | | | RN | | +--------+ + + + | Periph | Placement Date: 12/09/18; | 12/09/18827 by | 12/09/18 1315 by | | eleanor | Placement Time: 827; Removal | Arnaldo Gonzalez, | Hawk Wolfe RN | | IV | Date: 12/09/18; Removal Time: | RN | | | | 1315; Size (Gauge): 20 G; | | | | | Orientation: Left; Location: | | | | | Wrist; Site Prep: | | | | | Chlorhexidine-Isopropyl Alcohol; | | | | | Insertion Attempts: 1 | | | +--------+ + + + | ETT | Placement Date: 12/09/18; | 12/09/18916 by | 12/09/18 1305 by | | | Placement Time: 916; Removal | Tariq Mullins, | Enid Quinn RN | | | Date: 12/09/18; Removal Time: | [facility] | | | | 1305; Mask Airway: Easy; Blade | | | | | Type: Cummings; Blade Size: 2; ETT | | | | | Type: Standard ETT; ETT Size | | | | | (Fr): 8.0; Technique: Direct | | | | | Laryngoscope; Grade: II; | | | | | Insertion attempts: 1; | | | | | Confirmation: EtCO2, BBS, Direct | | | | | visualization; Intubation | | | | | Details: Easy, Atraumatic; Taped | | | | | at (cm): 23; Secured at: Lips | | | +--------+ + + + | Urethr | 12/09/18; 1001; Yes; | 12/09/18 1001 by | 12/09/18 1030 by | | al | Double-lumen, Latex; 16 Fr. | Tonya Long RN | Tariq Mullins, | | Paulette | | | [facility] | | er | | | | +--------+ + + + in this encounter Social History + +-------+ +--------+ + | [...] | | | | | [address] | | | | | | [place] [address] | | | | | | [phone] | | | | | | | | +--------+ + + + + | 02/22/ | Office | Cardiology | Juan Hardy | | | 2019 | Visit | | [address] | | | | | | [address] | | | | | | [place] [address] | | | | | | [phone] | | | | | | | | +--------+ + + + + | 02/22/ | Documentati | Cardiology | | | | 2019 | on Only | | | | +--------+ + + + + as of this encounter Visit Diagnoses Not on filein this encounter Administered Medications + +--------+ +--------+------+------+ | Medication Order | MAR | Action | Dose | Rate | Site | | | Action | Date | | | | + +--------+ +--------+------+------+ | ciprofloxacin (CIPRO) IVPB 400 | Given | | 400 mg | | | | mg 400 mg, Intravenous, | | 9 09:12 | | | | | Administer over 60 Minutes, On | | PDT | | | | | Call To [place], Wed12/09/18 at | | | | | | | 0830, For 1 dose, Pre-op | | | | | | + +--------+ +--------+------+------+ +---+---+ | | | +---+---+ + +-------+ +------+---+---+ | dexamethasone (DECADRON) 4 | Given | | 4 mg | | | | MG/ML injection PRN, Starting | | 9 09:24 | | | | | Wed12/09/18 at 0924, Anesthesia | | PDT | | | | | Intra-op | | | | | | + +-------+ +------+---+---+ +---+---+ | | | +---+---+ + +---------+ +---+---+---+ | electrolyte-A (PLASMALYTE-A) | New Bag | | | | | | solution Intravenous, Continuous | | 9 09:10 | | | | | PRN, Starting Wed12/09/18 at | | PDT | | | | | 0910, Anesthesia Intra-op | | | | | | + +---------+ +---+---+---+ +---+---+ | | | +---+---+ + +-------+ +------+---+---+ | ephedrine injection | Given | | 5 mg | | | | Intravenous, PRN, Starting Fri | | 09:31 | | | | | 12/09/18 at 0931, Anesthesia | | PDT | | | | | Intra-op | | | | | | + +-------+ +------+---+---+ +---+---+ | | | +---+---+ + +-------+ +--------+---+---+ | fentaNYL (SUBLIMAZE) injection | Given | | 50 mcg | | | | Intravenous, PRN, Starting Fri | | 9 09:10 | | | | | 12/09/18 at 0910, Anesthesia | | PDT | | | | | Intra-op | | | | | | + +-------+ +--------+---+---+ +---+---+ | | | +---+---+ + +-------+ +--------+---+---+ | glycopyrrolate (ROBINUL) | Given | | 0.2 mg | | | | injection PRN, Starting Fri | | 9 09:10 | | | | | 12/09/18 at 0910, Anesthesia | | PDT | | | | | Intra-op | | | | | | + +-------+ +--------+---+---+ +-------+ +--------+---+---+ | Given | | 0.2 mg | | | | | 9 10:23 | | | | | | PDT | | | | +-------+ +--------+---+---+ +---+---+ | | | +---+---+ + +-------+ +------+---+---+ | neostigmine (PROSTIGMINE) | Given | | 2 mg | | | | injection PRN, Starting Fri | | 9 10:23 | | | | | 12/09/18 at 1023, Anesthesia | | PDT | | | | | Intra-op | | | | | | + +-------+ +------+---+---+ +---+---+ | | | +---+---+ + +-------+ +------+---+---+ | ondansetron (ZOFRAN) injection | Given | | 4 mg | | | | PRN, Nausea, Vomiting, Starting | | 9 09:24 | | | | | 12/09/18 at 0924, Anesthesia | | PDT | | | | | Intra-op | | | | | | + +-------+ +------+---+---+ +---+---+ | | | +---+---+ + +-------+ +--------+---+---+ | propofol (DIPRIVAN) injection | Given | | 150 mg | | | | Intravenous, PRN, Starting Fri | | 9 09:12 | | | | | 12/09/18 at 0912, Anesthesia | | PDT | | | | | Intra-op | | | | | | + +-------+ +--------+---+---+ +---+---+ | | | +---+---+ + +-------+ +-------+---+---+ | rocuronium (ZEMURON) injection | Given | | 40 mg | | | | PRN, Starting 12/09/18 at | | 9 09:12 | | | | | 0912, Anesthesia Intra-op | | PDT | | | | + +-------+ +-------+---+---+ +---+---+ | | | +---+---+ in this encounter"
--- OUTSIDE RECORDS SUMMARY | ~2018-12-24 | XMS | Encounter Summary ---
Demographics + + + | Address | [address] | | | [place] [address] | + + + | Home Phone | | + + + | Preferred Language | Unknown | + + + | Marital Status | | + + + | Zoroastrian Affiliation | Unknown | + + + | Race | Unknown | + + + | Ethnic Group | Unknown | + + + Author + + + | Author | [facility] [employer] [facility] | + + + | Organization | [facility] | + + + | [...] Team Providers + +------+ + | Care Transition Specialist Name | Role | Phone | + +------+ + | Josh Mendoza DO | PCP | | + +------+ + Reason for Visit + + + | Reason | Comments | + + + | Cardiac | in-office | | Resynchronization | | | Therapy - | | | Defibrillator | | + + + Encounter Details +--------+ + + + + | Date | Type | Department | Care Team | Description | +--------+ + + + + | 11/21/ | Documentati | [facility] | | Cardiac | | 2019 | on Only | [facility] [place] | | Resynchronization | | | | [address] | | Therapy - | | | | [place], [place] | | Defibrillator | | | | [address] | | (in-office) | | | | [phone] | | | +--------+ + + + [...] + as of this encounter Progress Notes Teddy Arboleda RN - 11/21/2018 1:30 PM PDTDevice interrogation done by DOMENIC Haynes MD Any events or changes listed in office note. See device data attached to scheduled encounter for additional details. Tech: Teddy Arboleda RN Associated attestation - Juan Hardy MD - 12/12/2018 6:15 PM PDTSee office note for details.in this encounter Plan of Treatment [...] [address] | | | | | | [place] [address] | | | | | | [phone] | | | | | | | | +--------+ + + + + | 02/22/ | Office | Cardiology | Juan Hardy | | | 2018 | Visit | | [address] | | | | | | [address] | | | | | | [place] [address] | | | | | | [phone] | | | | | | | | +--------+ + + + + | 02/22/ | Documentati | Cardiology | | | | 2018 | on Only | | | | +--------+ + + + + as of this encounter Visit Diagnoses + + | Diagnosis | + + | Nonischemic cardiomyopathy (HCC) - Primary | + + | Other primary cardiomyopathies | + + | Paroxysmal atrial fibrillation (HCC) | + + | Atrial fibrillation | + +"
--- OUTSIDE RECORDS SUMMARY | ~2018-12-24 | XMS | Encounter Summary ---
Demographics + + + | Address | [address] | | | [place] [address] | + + + | Home Phone | | + + + | Preferred Language | Unknown | + + + | Marital Status | | + + + | Sikhism Affiliation | Unknown | + + + | Race | Unknown | + + + | Ethnic Group | Unknown | + + + Author + + + | Author | [facility] [employer] [facility] | + + + | Organization | [facility] | + + + [...] Team Providers + +------+ + | Care Regulatory Lead Name | Role | Phone | + +------+ + | Josh Mendoza DO | PCP | | + +------+ + Encounter Details +--------+ + + + + | Date | Type | Department | Care Team | Description | +--------+ + + + + | 10/12/ | Procedure | [facility] | | | | 2019 | Pass | [address] | | | | | | [address] | | | | | | [place] | | | | | | [address] | | | | | | [phone] | | | +--------+ + + + [...] | | | | | [address] | | | | | | [place] [address] | | | | | | [phone] | | | | | | | | +--------+ + + + + | 02/22/ | Office | Cardiology | Juan Hardy | | | 2019 | Visit | | [address] | | | | | | [address] | | | | | | [place] [address] | | | | | | [phone] | | | | | | | | +--------+ + + + + | 02/22/ | Documentati | Cardiology | | | | 2019 | on Only | | | | +--------+ + + + + as of this encounter Visit Diagnoses Not on filein this encounter"
--- OUTSIDE RECORDS SUMMARY | ~2018-12-24 | XMS | Encounter Summary ---
Demographics + + + | Address | [address] | | | [place] [address] | + + + | Home Phone | | + + + | Preferred Language | Unknown | + + + | Marital Status | | + + + | Roman Catholic Affiliation | Unknown | + + + | Race | Unknown | + + + | Ethnic Group | Unknown | + + + Author + + + | Author | [facility] | + + + | Organization | [facility] | + + + [...] Team Providers + +------+ + | Care Machine Ii Engraver Name | Role | Phone | + +------+ + | Josh Mendoza DO | PCP | | + +------+ + Reason for Visit + + + | Reason | Comments | + + + | Follow-up | | + + + Encounter Details +--------+---------+ + + + | Date | Type | Department | Care Team | Description | +--------+---------+ + + + | 10/12/ | Office | [facility] | Juan Hardy | Persistent atrial | | 2019 | Visit | [facility] | MD [address] | fibrillation (HCC) | | | | [address] | [address] | (Primary Dx) | | | | [place], [place] | [place] [address] | | | | | [address] | [phone] | | | | | [phone] | | | +--------+---------+ + + + [...] + + + | Blood Pressure | 118/60 | 10/12/2018 8:58 AM PST | + + + + | Pulse | 107 | 10/12/2018 8:58 AM PST | + + + + | Temperature | - | - | + + + + | Respiratory Rate | - | - | + + + + | Oxygen Saturation | 98% | 10/12/2018 8:58 AM PST | + + + + | Inhaled Oxygen | - | - | | Concentration | | | + + + + | Weight | 96.2 kg (212 lb 1.6 | 10/12/2018 8:58 AM PST | | | oz) | | + + + + | Height | 172.7 cm (5' 8") | 10/12/2018 8:58 AM PST | + + + + | Body Mass Index | 32.25 | 10/12/2018 8:58 AM PST | + + + + in this encounter Progress Notes Juan Hardy MD - 10/12/2018 9:00 AM PSTFormatting of this note may be diffe rent from the original. Subjective: Referring MD: Josh Mendoza* Chief Complaint Patient presents with Follow-up HPI: This is a 77 y.o. male who presents today for follow-up of atrial fibrillation and his biventricular pacemaker/ICD. Since his last visit Mr. Herr underwent transesophageal ec hocardiography which demonstrated resolution of his left atrial appendage thrombus. Cardiov ersion was then performed with gnosticism of sinus rhythm area he was then started on amiod arone and is now on 200 mg daily. 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 He has noted an increase in fatigue over the past several days. He denies any current chest pain, shortness of pushpa th, dizziness, lightheadedness, palpitations, or recent syncope. He continues on anticoagul ation with Eliquis. Past Medical History Diagnosis Date Atrial fibrillation (HCC) AC - SHAWN/CVN 10/01 - amio Cardiomyopathy (HCC) Chronic kidney disease cr 1.6 08/30 COPD (chronic obstructive pulmonary disease) ([facility]) Hyperlipidemia Hypertension Mitral regurgitation Mod-severe on echo 06/30 Status post internal cardiac defibrillator procedure S/p Medtronic Biv/ICD 01/26 Thrombus of left atrial appendage on SHAWN 07/31 - resolved on SHAWN 10/01 Past Surgical History Procedure Laterality Date CARDIAC CATHETERIZATION 01/2006 Lm nl, LAD 30-40% mid, Cx 40% prox, RCA 50% mid, EF 35-40% HIP SURGERY PACEMAKER INSERTION TRANSESOPHAGEAL ECHOCARDIOGRAM 07/2018 EF 20-25%, mild LA dil, SEC in LA/YANELY, thrombus in YANELY, mild RV dil with mod dec RV fxn, m ild MR, mild TR TRANSTHORACIC ECHOCARDIOGRAM 06/2018 EF 20-25%, mod LA/RA dil, mod-sev MR, mod TR, mild [place], RVSP 46 UNLISTED PROCEDURE ARTHROSCOPY Family History Problem Relation Age of Onset Hypertension Mother Heart disease Father Coronary art dis Father Heart disease Sister Heart disease Brother Coronary art dis Brother Cancer Maternal Grandmother Coronary art dis Paternal Grandmother Social History Social History Marital status: Spouse name: N/A Number of children: N/A Years of education: N/A Social History Main Topics Smoking status: Former Smoker Packs/day: 2.00 Years: 12.00 Quit date: 09/27/1971 Smokeless tobacco: Never Used Alcohol use Yes Comment: very little Drug use: No Sexual activity: Not Currently Partners: Female Other Topics Concern None Social History Narrative None Review of Systems: Ten system review negative unless noted in HPI. Current Outpatient Prescriptions Medication Sig Dispense Refill amiodarone (PACERONE) 200 MG tablet Take 1 tablet by mouth daily. 90 tablet 3 aspirin 81 MG tablet Take 81 mg by mouth daily. carvedilol (COREG) 6.25 MG tablet Take 1 tablet by mouth 2 (two) times daily with meals . ELIQUIS 5 MG tablet Take 5 mg by mouth 2 (two) times daily. finasteride (PROSCAR) 5 MG tablet Take 5 mg by mouth daily. fluticasone (FLONASE) 50 MCG/ACT nasal 1 spray by Each Nare route daily. furosemide (LASIX) 40 MG tablet Take 80 mg by mouth. Take 1 tablet in the morning and 1 /2 tablet in the evening ketoconazole (NIZORAL) 2 % shampoo potassium chloride (K-DUR) 10 MEQ tablet Take 10 mEq by mouth daily. sacubitril-valsartan (ENTRESTO) 49-51 MG per tablet Take 1 tablet by mouth 2 (two) time s daily. spironolactone (ALDACTONE) 50 MG tablet Take 50 mg by mouth daily. tamsulosin (FLOMAX) 0.4 MG capsule Take 0.4 mg by mouth 2 (two) times daily. No current facility-administered medications for this visit. Allergies Allergen Reactions Valacyclovir Other (See Comments) Adverse reaction to valacyclovir "kidneys shut down" Objective: Vitals: 10/12/18 0858 BP: 118/60 Pulse: 107 SpO2: 98% Weight: 96.2 kg (212 lb 1.6 oz) Height: 1.727 m (5' 8") Body mass index is 32.25 kg/m. Exam: General: Patient is alert, pleasant, cooperative, and in no acute distress. Eyes: Sclerae anicteric. Ears: External ears normal. Nose: External nose normal. Oral exam: No oral lesions noted. Neck: Trachea midline. No thyromegaly. No elevation of jugular venous pressure. No reno tid bruits. Lungs: Clear to auscultation bilaterally. No wheezes, rales, or rhonchi. Heart: Regular rate and rhythm. Normal S1/S2. No murmurs, gallops, rubs. Abdomen: Bowel sounds present. Soft, nondistended. No masses or hepatosplenomegaly noted . No significant tenderness noted. Extremities: No clubbing or cyanosis noted. No lower extremity edema noted. Pulses: Intact bilateral radial and pedal pulses. Musculoskeletal: No obvious arthritic change noted of the knees. Skin: Warm and dry. Psychiatric: Patient is alert and oriented to person, place, and day. Mood and affect nor mal. Neurological: Patient is intact to light touch in the upper and lower extremities bilateral ly. Review of studies: ECG: Atrial fibrillation with ventricular response rate of 111 bpm, paced fusion, compared to the EKG of September 2018 atrial pacing has been replaced with atrial fibrillation Device Interrogation: His Medtronic biventricular pacemaker/ICD was interrogated and found to have stable sensing, pacing, and impedance values. Atrial fibrillation recurred approxim ately 3-4 days ago based on device diagnostics. He has paced 47% of the time in the atrium with 92% ventricular pacing. Impression/Plan: Alexi was seen today for follow-up. Persistent atrial fibrillation (HCC) - Electrocardiogram, 12-lead - carvedilol (COREG) 6.25 MG tablet; Take 1 tablet by mouth 2 (two) times daily with me als. - sodium chloride 0.9 % infusion; Inject into the vein continuous. - CL cardioversion elective Other orders - Full Code; Standing - Vital signs - pre-op per protocol; Standing - Pulse oximetry - continuous; Standing - Cardiac monitoring - continuous (Tammi-Op); Standing - Up as tolerated; Standing - Diet NPO except water with medications; Standing - Void regional planner; Standing - CBC w/auto diff (reflex to manual); Standing - Basic metabolic panel; Standing - Electrocardiogram, 12-lead; Standing - Antibiotic Not Indicated for This Procedure; Standing 1) Atrial fibrillation - Mr. Herr reports a history of atrial fibrillation diagnosed sev eral years ago. He was previously on anticoagulation with Eliquis but this was then change d to Plavix over the years. He presented with heart failure symptoms in 2018 and persisten t atrial fibrillation was noted. Anticoagulation with Eliquis was resumed. Evaluation of his biventricular pacemaker/ICD indicated that atrial fibrillation recurred in April 2018 and has persisted since. This correlated with his heart failure symptoms. Yazidism and maintenance of sinus rhythm was recommended to ensure appropriate function of his biventric ular pacemaker and to likely improve his heart failure symptoms. A transesophageal echocard iogram was performed but a left atrial appendage thrombus was suggested. Cardioversion coul d not be performed. He was then continued on anticoagulation and a subsequent transesophag eal echocardiogram demonstrated resolution of the thrombus recently and cardioversion was pe rformed with gnosticism of an atrial paced rhythm. He was then started on amiodarone and i s now on 200 mg daily. Unfortunately, atrial fibrillation recurred approximately 3-4 days a go based on device diagnostics and symptoms. He is aware that amiodarone we'll take 2-3 mon ths to fully load. We will plan for another cardioversion in the next several weeks after rigo soria amiodarone loading. He will increase carvedilol back to 6.25 mg twice a day. He kena l continue on anticoagulation with Eliquis. 2) Nonischemic cardiomyopathy - He has a history of a nonischemic cardiomyopathy as per rec ords. Given a left bundle-branch block with heart failure symptoms a biventricular pacemak er/ICD was implanted in 2015. His ventricular function reportedly decreased with his recen t atrial fibrillation. His echocardiogram performed through cardiology in 2018 demonstrate d an ejection fraction of 20-25% with moderate to severe mitral regurgitation. He continue s to follow with cardiology. His last cardiac catheterization was in 2005 and mild to mode rate coronary artery disease was noted at the time. 3) S/p biventricular pacemaker/ICD - Hisbiventricular pacemaker/ICD was interrogated and found to be functioning normally in all respects. He will likely have more effective cardi ac resynchronization therapy with gnosticism and maintenance of sinus rhythm. 4) Left atrial appendage thrombus - A transesophageal echocardiogram performed in 2018 demo nstrated a left atrial appendage thrombus and cardioversion was not performed at that time. Following further anticoagulation transesophageal echocardiogram was performed recently [facility] demonstrated resolution of the thrombus and cardioversion was performed as noted. 5) Sleep apnea - Hereports a history of obstructive sleep apnea and was previously on CPA P. He then lost a considerable amount of weight and was retested and told he no longer nee ded CPAP. He is aware of the association of obstructive sleep apnea with atrial dysrhythmi as. This encounter was dictated with voice recognition software and may contain inadvertent rec ognition errors. Electronically signed by: Juan Cope this encounter Plan of Treatment +--------+ + [...] [address] | | | | | | [place] [address] | | | | | | [phone] | | | | | | | | +--------+ + + + + | 02/22/ | Office | Cardiology | Juan Hardy | | | 2018 | Visit | | MD [address] | | | | | | [address] | | | | | | [place] [address] | | | | | | [phone] | | | | | | | [...] EKG STANDARD 12 LEAD | Routin | 10/12/2018 | Persistent atrial | Results for this | | | e | 9:03 AM | fibrillation (HCC) | procedure are in the | | | | PST | | results section. | + +--------+ + + + in this encounter Results CL cardioversion elective (11/01/2018 4:23 PM) + + + | Narrative | Performed At | + + + | | [facility] | [facility] | | PREOPERATIVE | | | DIAGNOSIS: Atrial fibrillation. POSTOPERATIVE | | | DIAGNOSIS: Atrial fibrillation, status post cardioversion with | | | gnosticism of atrioventricular paced rhythm. PROCEDURES: | | | 1. Direct current synchronized cardioversion. 2. Interrogation | | | of biventricular pacemaker/implantable cardioverter defibrillator | | | with reprogramming. PERFORMING: Juan Hardy MD. | | | SEDATION: Conscious sedation provided by Anesthesia Department. | | | ESTIMATED BLOOD LOSS: Nonapplicable. ACCESS: Nonapplicable. | | | COMPLICATIONS: None. FINDINGS: 1. Atrial fibrillation | | | with ventricular response rate of 100-110 beats per minute with | | | ventricular sensed response pacing noted on arrival to the EP lab. | | | 2. The patient on Eliquis at the time of procedure without | | | interruption since last cardioversion. 3. Cardioversion performed | | | with gnosticism of an AV paced rhythm in the 70s. 4. Stable | | | lead parameters on device interrogation. CARDIOVERSION PERFORMED | | | FOLLOWS: Atrial fibrillation converted with a 200 Joule | | | synchronized external biphasic shock with gnosticism of an AV paced | | | rhythm in 70s. BRIEF HISTORY: This is an 78-year-old male with | | | a history of atrial fibrillation, on amiodarone and anticoagulation, | | | cardiomyopathy status post biventricular pacemaker/ICD in 2016, | | | hypertension, hypercholesterolemia, COPD, and chronic renal | | | insufficiency who was noted to have recurrent atrial | | | fibrillation. He was started on amiodarone recently. After | | | further amiodarone loading, he elected to proceed with subsequent | | | cardioversion to restore sinus rhythm and presents today for | | | procedure. PROCEDURE DETAILS: Informed consent was obtained | | | from the patient prior to the procedure. The risks include but not | | | limited to arrhythmia, cardiac arrest, stroke, and | | | . Signed consent was on the chart prior to procedure. The | | | patient was brought to the procedure area, appropriately identified | | | in the procedure room. Once the patient was appropriately sedated | | | as per Anesthesia, cardioversion was then performed as noted above | | | with ultimate gnosticism of AV paced rhythm in the 70s. His | | | biventricular pacemaker/ICD was fully interrogated, found to have | | | stable sensing, pacing, and impedance values and was appropriately | | | programmed following our cardioversion. The patient was then | | | awakened from sedation and found to be in satisfactory condition and | | | ultimately discharged after appropriate recovery period. He will | | | continue on his current outpatient medications. He will continue | | | follow up with electrophysiology in 2-3 weeks. Read by JUAN | | | MD JONATHON 11/01/2018 03:29 P | | + + + + + | Procedure Note | + + | Enrique Martinez Daley In - 12/01/2018 12:51 PM PDT | | | | | | | | PREOPERATIVE DIAGNOSIS: Atrial fibrillation. | | | | POSTOPERATIVE DIAGNOSIS: Atrial fibrillation, status post cardioversion | | with gnosticism of atrioventricular paced rhythm. | | | | PROCEDURES: | | 1. Direct current synchronized cardioversion. | | 2. Interrogation of biventricular pacemaker/implantable cardioverter | | defibrillator with reprogramming. | | | | PERFORMING: Juan Hardy MD. | | | | SEDATION: Conscious sedation provided by Anesthesia Department. | | | | ESTIMATED BLOOD LOSS: Nonapplicable. | | | | ACCESS: Nonapplicable. | | | | COMPLICATIONS: None. | | | | FINDINGS: | | 1. Atrial fibrillation with ventricular response rate of 100-110 beats per | | minute with ventricular sensed response pacing noted on arrival to the EP | | lab. | | 2. The patient on Eliquis at the time of procedure without interruption | | since last cardioversion. | | 3. Cardioversion performed with gnosticism of an AV paced rhythm in the | | 70s. | | 4. Stable lead parameters on device interrogation. | | | | CARDIOVERSION PERFORMED FOLLOWS: Atrial fibrillation converted with a | | 200 Joule synchronized external biphasic shock with gnosticism of an AV | | paced rhythm in 70s. | | | | BRIEF HISTORY: This is an 78-year-old male with a history of atrial | | fibrillation, on amiodarone and anticoagulation, cardiomyopathy status post | | biventricular pacemaker/ICD in 2016, hypertension, hypercholesterolemia, | | COPD, and chronic renal insufficiency who was noted to have recurrent | | atrial fibrillation. He was started on amiodarone recently. After further | | amiodarone loading, he elected to proceed with subsequent cardioversion to | | restore sinus rhythm and presents today for procedure. | | | | PROCEDURE DETAILS: Informed consent was obtained from the patient prior to | | the procedure. The risks include but not limited to arrhythmia, cardiac | | arrest, stroke, and . Signed consent was on the chart prior to | | procedure. | | | | The patient was brought to the procedure area, appropriately identified in | | the procedure room. Once the patient was appropriately sedated as per | | Anesthesia, cardioversion was then performed as noted above with ultimate | | gnosticism of AV paced rhythm in the 70s. His biventricular pacemaker/ICD | | was fully interrogated, found to have stable sensing, pacing, and impedance | | values and was appropriately programmed following our cardioversion. The | | patient was then awakened from sedation and found to be in satisfactory | | condition and ultimately discharged after appropriate recovery period. He | | will continue on his current outpatient medications. He will continue | | follow up with electrophysiology in 2-3 weeks. | | | | Read by JUAN HARDY MD 11/01/2018 03:29 P | | | | | + + + + + + + | Performing | Address | City/State/Zipcode | Phone Number | | Organization | | | | + + + + + | [facility] | [address] | [place] [address] | | + + + + + EKG STANDARD 12 LEAD (10/12/2018 9:03 AM) + + + + + | Component | Value | Ref Range | Performed At | + + + + + | Ventricular Rate | 111 | BPM | [facility] | + + + + + | Atrial Rate | 96 | BPM | [facility] | + + + + + | QRS Duration | 156 | ms | [facility] | + + + + + | Q-T Interval | 422 | ms | [facility] | + + + + + | QTC Calculation | 573 | ms | [facility] | | (Bezet) | | | | + + + + + | Calculated R [place] | -140 | degrees | [facility] | + + + + + | Calculated T [place] | 25 | degrees | [facility] | + + + + + | Diagnosis | Please refer to | | [facility] | | | Providers office visit | | | | | note for Providers | | | | | Interpretation.Confirmed | | | | | by [facility] Read Only, | | | | | [facility] ([id number]), | | | | | news editor Tomas Bailon | | | | | ([id number]) on 10/12/2018 | | | | | 10:46:11 AM | | | + + + + + + + + + + | Performing | Address | City/State/Zipcode | Phone Number | | Organization | | | | + + + + + | [facility] | [address] | [place] [address] | | + + + + + in this encounter Visit Diagnoses + + | Diagnosis | + + | Persistent atrial fibrillation (HCC) - Primary | + + | Atrial fibrillation | + +
--- OUTSIDE RECORDS SUMMARY | ~2018-12-24 | XMS | Encounter Summary ---
Demographics + + + | Address | [address] | | | [place] [address] | + + + | Home Phone | | + + + | Preferred Language | Unknown | + + + | Marital Status | | + + + | Muslim Affiliation | Unknown | + + + | Race | Unknown | + + + | Ethnic Group | Unknown | + + + Author + + + | Author | [facility] | + + + | Organization | [facility] | + + + [...] Team Providers + +------+ + | Care Watch Train Inspector Name | Role | Phone | + +------+ + | Josh Mendoza DO | PCP | | + +------+ + Reason for Visit + + + | Reason | Comments | + + + | Flank Pain | left-sided flank pain started this morning at about 0700. Also | | | reports chills and nausea. Patient had bladder surgery 2 days | | | ago. Arrives with indwelling catheter. | + + + | Post-op Problem | | + + + Encounter Details +--------+ + + + + | Date | Type | Department | Care Team | Description | +--------+ + + + + | 12/11/ | Emergency | [facility] | Sina Conrad, | Flank pain (Primary | | 2019 | | Department in | DO [address] | Dx); Hematuria, | | | | [place] [address] | [place] [address] | unspecified type | | | | [place], | [phone] | | | | | [place] [address] | | | | | | [phone] | | | +--------+ + + + [...] + + + | Blood Pressure | 103/62 | 12/11/2018 12:35 PM PDT | + + + + | Pulse | 83 | 12/11/2018 12:35 PM PDT | + + + + | Temperature | 36.4 C (97.6 F) | 12/11/2018 12:35 PM PDT | + + + + | Respiratory Rate | 16 | 12/11/2018 12:35 PM PDT | + + + + | Oxygen Saturation | 97% | 12/11/2018 12:35 PM PDT | + + + + | Inhaled Oxygen | - | - | | Concentration | | | + + + + | Weight | 95.8 kg (211 lb 3.2 | 12/11/2018 10:39 AM PDT | | | oz) | | + + + + | Height | 172.7 cm (5' 8") | 12/11/2018 10:39 AM PDT | + + + + | Body Mass Index | 32.11 | 12/11/2018 10:39 AM PDT | + + + + in this encounter Discharge Instructions The following attachments cannot be sent through Care Everywhere.Flank Pain, Uncertain Caus e (Yoruba)in this encounter Medications at Time of Discharge [...] | | | | | [address] | | | | | | [place] [address] | | | | | | [phone] | | | | | | | | +--------+ + + + + | 02/22/ | Office | Cardiology | Juan Hardy | | | 2019 | Visit | | MD [address] | | | | | | [address] | | | | | | [place] [address] | | | | | | [phone] | | | | | | | [...] | + +--------+ + + + | US LOWER EXTREMITY | LOYDA | 12/11/2018 | | Results for this | | VENOUS DOPPLER RIGHT | | 11:32 AM | | procedure are in the | | | | PDT | | results section. | + +--------+ + + + | URINALYSIS (REFLEX | STAT | 12/11/2018 | | Results for this | | TO | | 11:24 AM | | procedure are in the | | MICROSCOPIC/REFLEX | | PDT | | results section. | | TO CULTURE) | | | | | + +--------+ + + + | URINE MICROSCOPIC | STAT | 12/11/2018 | | Results for this | | ONLY | | 11:24 AM | | procedure are in the | | | | PDT | | results section. | + +--------+ + + + | URINE CULTURE | STAT | 12/11/2018 | | Results for this | | | | 11:24 AM | | procedure are in the | | | | PDT | | results section. | + +--------+ + + + | [facility] CARD PANEL W/O | STAT | 12/11/2018 | | Results for this | | TRP (ED ONLY) | | 11:20 AM | | procedure are in the | | | | PDT | | results section. | + +--------+ + + + in this encounter Results US lower extremity venous doppler right (12/11/2018 11:32 AM) + + + | Impressions | Performed At | + + + | Right lower extremity ultrasound negative for DVT. Signed by: | GINETTE | | MD Jossue, Abigail Sign Date/Time: 12/11/2018 11:49 AM | RADIOLOGY | + + + + + + | Narrative | Performed At | + + + | ULTRASOUND VENOUS DUPLEX, RIGHT LOWER EXTREMITY CLINICAL | [facility] | | INFORMATION: Right leg swelling, recent surgery. Bladder tumor | RADIOLOGY | | removed Wednesday. COMPARISON: CT UROGRAM ABDOMEN PELVIS W WO CONTRAST | | | (08/17/2018); PROCEDURE: Duplex and color Doppler evaluation of the | | | veins of the lower extremity including compression, spectral analysis | | | and Doppler response to distal compression, Valsalva, and/or other | | | maneuvers. FINDINGS: The common femoral vein, femoral vein and | | | popliteal vein are compressible with normal augmentation. Calf veins | | | unremarkable. Greater saphenous vein unremarkable. Limited | | | evaluation of the contralateral common femoral vein demonstrates | | | normal color flow and respiratory variation. | | + + + + + | Procedure Note | + + | Martinez Nunez Results In - 12/11/2018 11:53 AM PDT ULTRASOUND VENOUS DUPLEX, RIGHT LOWER | | EXTREMITYCLINICAL INFORMATION:Right leg swelling, recent surgery. Bladder tumor removed | | Wednesday.COMPARISON:CT UROGRAM ABDOMEN PELVIS W WO CONTRAST (08/17/2018);PROCEDURE:Duplex | | and color Doppler evaluation of the veins of the lower extremityincluding compression, | | spectral analysis and Doppler response to distalcompression, Valsalva, and/or other | | maneuvers.FINDINGS:The common femoral vein, femoral vein and popliteal vein | | arecompressible with normal augmentation. Calf veins unremarkable. Greatersaphenous vein | | unremarkable.Limited evaluation of the contralateral common femoral veindemonstrates | | normal color flow and respiratory variation.IMPRESSION:Right lower extremity ultrasound | | negative for DVT.Signed by: MD Marcum TerriSign Date/Time: 12/11/2018 11:49 AM | |The common femoral vein, femoral vein and popliteal vein are | |compressible with normal augmentation. Calf veins unremarkable. Greater | |saphenous vein unremarkable. | |Limited evaluation of the contralateral common femoral vein | |demonstrates normal color flow and respiratory variation. | |IMPRESSION: | |Right lower extremity ultrasound negative for DVT. | |Signed by: MD Marcum Terri | |Sign Date/Time: 12/11/2018 11:49 AM | + + + + + + + | Performing | Address | City/State/Zipcode | Phone Number | | Organization | | | | + + + + + | [facility] | [address] | [place] [address] | | + + + + + Urine culture (12/11/2018 11:24 AM) + + + + + | Component | Value | Ref Range | Performed At | + + + + + | Specimen Description | CATHETERIZED URINE | | [facility] | | | | | LABORATORY | + + + + + | CULTURE | NO GROWTH | | [facility] | | | | | LABORATORY | + + + + + + + | Specimen | + + | Urine, Catheter | + + + + + + + | Performing | Address | City/State/Zipcode | Phone Number | | Organization | | | | + + + + + | [facility] | [address] | [place] [address] | [phone] | | LABORATORY | [address] | | | + + + + + Urine microscopic only (12/11/2018 11:24 AM) + + + + + | Component | Value | Ref Range | Performed At | + + + + + | WBC | 6-10 | 0 - 5 /hpf | [facility] | + + + + + | RBC | 50-100 | 0 - 2 /hpf | [facility] | + + + + + | EPITHELIAL | 1-5 | /lpf | [facility] | + + + + + | BACTERIA | 2+ (A) | NONE SEEN | [facility] | + + + + + | Mucus, UA | 1+ | | [facility] | + + + + + | Casts | 0-2Comment: HYALINE | /lpf | [facility] | + + + + + | Urinalysis Comments | CULTURE TO | | [facility] | | | FOLLOWComment: Testing | | | | | performed at [facility], [address] | | [address] [place] [address], | | | | | [place] [address] | | | + + + + + + + + + + | Performing | Address | City/State/Zipcode | Phone Number | | Organization | | | | + + + + + | [facility] | [address] | [place] [address] | | + + + + + Urinalysis (reflex to microscopic/reflex to culture) (12/11/2018 11:24 AM) + + + + + | Component | Value | Ref Range | Performed At | + + + + + | COLOR UA | COLORLESS | | [facility] | + + + + + | CLARITY | CLEAR | | [facility] | + + + + + | Specific [place], UA | 1.010 | 1.001 - 1.035 | [facility] | + + + + + | LEUKOCYTE ESTERASE | SMALL (A) | NEGATIVE | [facility] | + + + + + | NITRITE | NEGATIVE | NEGATIVE | [facility] | + + + + + | UROBILINOGEN | 0.2 | <1.1 mg/dL | [facility] | + + + + + | PROTEIN | NEGATIVE | NEGATIVE mg/dL | [facility] | + + + + + | PH,URINE | 5.5 | 4.6 - 8.0 | [facility] | + + + + + | BLOOD | LARGE (A) | NEGATIVE | [facility] | + + + + + | KETONES | NEGATIVE | NEGATIVE mg/dL | [facility] | + + + + + | BILIRUBIN | NEGATIVE | NEGATIVE | [facility] | + + + + + | GLUCOSE | NEGATIVEComment: Testing | NEGATIVE mg/dL | [facility] | | | performed at [facility], [address] [place] [address], | | | | | [place] [address] | | | + + + + + + + | Specimen | + + | Urine - Urine, | | Catheter | + + + + + + + | Performing | Address | City/State/Zipcode | Phone Number | | Organization | | | | + + + + + | [facility] | [address] | [place] [address] | | + + + + + Cardiac Panel (12/11/2018 11:20 AM) + + + + + | Component | Value | Ref Range | Performed At | + + + + + | WBC | 10.21 | 3.80 - 11.00 K/uL | [facility] | + + + + + | RBC | 3.77 (L) | 4.20 - 5.70 M/uL | [facility] | + + + + + | HGB | 11.8 (L) | 13.2 - 17.0 g/dL | [facility] | + + + + + | HCT | 36.4 (L) | 39.0 - 50.0 % | [facility] | + + + + + | MCV | 96.6 | 80.0 - 100.0 fl | [facility] | + + + + + | MCH | 31.3 | 27.0 - 34.0 pg | [facility] | + + + + + | MCHC | 32.4 | 32.0 - 35.5 g/dL | [facility] | + + + + + | RDW SD | 44.6 | 37 - 53 fl | [facility] | + + + + + | PLT | 148 (L) | 150 - 400 K/uL | [facility] | + + + + + | MPV | 9.0Comment: NO NORMAL | fl | [facility] | | | RANGE ESTABLISHED | | | + + + + + | DIFF TYPE | AUTOMATED | | [facility] | + + + + + | nRBC | 0.0 | 0 /100WBC | [facility] | + + + + + | NEUTROPHILS | 79.40 | % | [facility] | + + + + + | IMMATURE GRANULOCYTE | 0.30 | % | [facility] | + + + + + | LYMPHOCYTES | 12.60 | % | [facility] | + + + + + | MONOCYTES | 7.00 | % | [facility] | + + + + + | EOSINOPHILS | 0.60 | % | [facility] | + + + + + | BASOPHILS | 0.10 | % | [facility] | + + + + + | NEUTROPHILS ABS | 8.11 (H) | 1.90 - 7.40 K/uL | [facility] | + + + + + | IMMATURE GRAN ABS | 0.03Comment: NO NORMAL | K/uL | [facility] | | | RANGE ESTABLISHED | | | + + + + + | LYMPHOCYTES ABS | 1.29 | 1.00 - 3.90 K/uL | [facility] | + + + + + | MONOCYTES ABS | 0.71 | 0.00 - 0.80 K/uL | [facility] | + + + + + | EOSINOPHILS ABS | 0.06 | 0.00 - 0.50 K/uL | [facility] | + + + + + | BASOPHILS ABS | 0.01 | 0.00 - 0.10 K/uL | [facility] | + + + + + | SODIUM | 137 | 135 - 145 mmol/L | [facility] | + + + + + | POTASSIUM | 3.9 | 3.5 - 4.9 mmol/L | [facility] | + + + + + | CHLORIDE | 99 | 99 - 109 mmol/L | [facility] | + + + + + | CO2 | 30 | 23 - 32 mmol/L | [facility] | + + + + + | ANION GAP AGAP | 12 | 5 - 20 mmol/L | [facility] | + + + + + | GLUCOSE | 148 (H) | 65 - 99 mg/dL | [facility] | + + + + + | BUN | 60 (H) | 8 - 25 mg/dL | [facility] | + + + + + | CREATININE | 1.71 (H) | 0.70 - 1.30 mg/dL | [facility] | + + + + + | BUN/CREAT | 35 | | [facility] | + + + + + | CALCIUM | 9.0 | 8.5 - 10.5 mg/dL | [facility] | + + + + + | TOTAL PROTEIN | 7.6 | 6.3 - 8.2 g/dL | [facility] | + + + + + | Albumin | 3.7 | 3.3 - 4.8 g/dL | [facility] | + + + + + | GLOBULIN | 3.9 | 1.3 - 4.9 g/dL | [facility] | + + + + + | A/G | 0.9 (L) | 1.0 - 2.4 | [facility] | + + + + + | TBIL | 0.4 | 0.1 - 1.5 mg/dL | [facility] | + + + + + | ALK PHOS | 57 | 35 - 115 U/L | [facility] | + + + + + | AST | 14 | 10 - 45 U/L | [facility] | + + + + + | ALT | 21 | 10 - 65 U/L | [facility] | + + + + + | EGFR | 39 (L)Comment: GFR <60: | >60 mL/min/1.73m2 | [facility] | | | CHRONIC KIDNEY DISEASE, [...] the | | | | | [facility]D [facility] traceable | | | | | equation. | | | + + + + + | CPK | 41 (L) | 55 - 400 U/L | [facility] | + + + + + | INR | 1.0Comment: REFERENCE | | [facility] | | | RANGE:0.9 - | | | | | 1.2 NON-ANTICOAGULATE | | | | | D2.0 - 3.0 ALL OTHER | | | | | THERAPEUTIC | | | | | INDICATIONS2.5 - 3.5 | | | | | MECHANICAL HEART VALVES, | | | | | RECURRENT OR SYSTEMIC | | | | | EMBOLISM | | | + + + + + | APTT | 25 | 23 - 32 seconds | [facility] | + + + + + | MMB | 1.2 | 0.5 - 3.6 ng/mL | [facility] | + + + + + | CK-MB Index | 2.9Comment: CK INDEX | | [facility] | | | INTERPRETATION: | | | | | MMB | | | | | ng/mL & Relative | | | | | IndexNon-AMI | | | | | < or = | | | | | 5.0 N | | | | | AGray Zone | | | | | >5.0 < | | | | | or = | | | | | 4.0AMI | | | | | | | | | | >5.0 | | | | | >4.0Testing | | | | | performed at [facility], [address] [place] [address], | | | | | [place] [address] | | | + + + + + + + + + + | Performing | Address | City/State/Zipcode | Phone Number | | Organization | | | | + + + + + | [facility] | [address] | [place] [address] | | + + + + + in this encounter Visit Diagnoses + + | Diagnosis | + + | Flank pain - Primary | + + | Abdominal pain, unspecified site | + + | Hematuria, unspecified type | + + Admitting Diagnoses + + | Diagnosis | + + | Flank pain | + + | Abdominal pain, unspecified site | + + | Hematuria, unspecified type | + + Administered Medications + +--------+ +------+------+------+ | Medication Order | MAR | Action | Dose | Rate | Site | | | Action | Date | | | | + +--------+ +------+------+------+ | morphine (PF) injection 4 mg 4 | Given | | 4 mg | | | | mg, Intravenous, Once, Sun | | 9 11:25 | | | | | 12/11/18 at 1050, For 1 dose | | PDT | | | | + +--------+ +------+------+------+ +---+---+ | | | +---+---+ + +-------+ +------+---+---+ | ondansetron (ZOFRAN) injection | Given | | 4 mg | | | | 4 mg 4 mg, Intravenous, Once, | | 9 11:22 | | | | | 12/11/18 at 1050, For 1 dose | | PDT | | | | + +-------+ +------+---+---+ + +---+ | | | + +---+ | sodium chloride (PF) 0.9 % | | | flush 10 mL 10 mL, Intravenous, | | | Every 8 Hours, First dose on Sun | | | 12/11/18 at 1045 | | + +---+ | | | + +---+ in this encounter
--- OUTSIDE RECORDS SUMMARY | ~2018-12-24 | XMS | Encounter Summary ---
Demographics + + + | Address | [address] | | | [place] [address] | + + + | Home Phone | | + + + | Preferred Language | Unknown | + + + | Marital Status | | + + + | Anabaptism Affiliation | Unknown | + + + | Race | Unknown | + + + | Ethnic Group | Unknown | + + + Author + + + | Author | [facility] | + + + | Organization | [facility] | + + + [...] Team Providers + +------+ + | Care Acquisition Analyst Name | Role | Phone | + [...] + + | 12/11/ | Emergency | [facility] | Sina Conrad, | Flank pain (Primary | | 2019 | | Department in | DO [address] | Dx); Hematuria, | | | | [place] [address] | [place] [address] | unspecified type | | | | [place], | [phone] | | | | | [place] [address] | | | | | | [phone] | | | +--------+ + + + [...] through Care Everywhere.Flank Pain, Uncertain Caus e ([place])in this encounter Medications at Time of Discharge [...] | | | | | [address] | | | | | | [place] [address] | | | | | | [phone] | | | | | | | | +--------+ + + + + | 02/22/ | Office | Cardiology | Juan Hardy | | | 2019 | Visit | | MD [address] | | | | | | [address] | | | | | | [place] [address] | | | | | | [phone] | | | | | | | [...] | + +--------+ + + + | [facility] [place] | STAT | 12/11/2018 [...] [facility] | [address] | [place] [address] | | + + + + + [...] + + + | [facility] | [address] | [place] [address] | [phone] | | LABORATORY | [address] | | | + + + + + Urine microscopic only (12/11/2018 11:24 AM) + + + + + | Component | Value | Ref Range | Performed At | + + + + + | WBC | 6-10 | 0 - 5 /hpf | [facility] | + + + + + | RBC | 50-100 | 0 - 2 /hpf | [facility] | + + + + + | EPITHELIAL | 1-5 | /lpf | [facility] | + + + + + | BACTERIA | 2+ (A) | NONE SEEN | [facility] | + + + + + | Mucus, UA | 1+ | | [facility] | + + + + + | Casts | 0-2Comment: HYALINE | /lpf | [facility] | + + + + + | Urinalysis Comments | CULTURE TO | | [facility] | | | FOLLOWComment: Testing | | | | | performed at [facility], [address] [place] [address], | | | | | [place] [address] | | | + + + + + + + + + + | Performing | Address | City/State/Zipcode | Phone Number | | Organization | | | | + + + + + | [facility] | [address] | [place] [address] | | + + + + + Urinalysis (reflex to microscopic/reflex to culture) (12/11/2018 11:24 AM) + + + + + | Component | Value | Ref Range | Performed At | + + + + + | COLOR UA | COLORLESS | | [facility] | + + + + + | CLARITY | CLEAR | | [facility] | + + + + + | Specific [place], UA | 1.010 | 1.001 - 1.035 | [facility] | + + + + + | LEUKOCYTE ESTERASE | SMALL (A) | NEGATIVE | [facility] | + + + + + [...] KETONES | NEGATIVE | NEGATIVE mg/dL | [facility] | + + + + + | BILIRUBIN | NEGATIVE | NEGATIVE | [facility] | + + + + + | GLUCOSE | NEGATIVEComment: Testing | NEGATIVE mg/dL | [facility] | | | performed at [facility], [address] [place] [address], | | | | | [place] [address] | | | + + + + + + + | Specimen | + + | Urine - Urine, | | Catheter | + + + + + + + | Performing | Address | City/State/Zipcode | Phone Number | | Organization | | | | + + + + + | [facility] | [address] | [place] [address] | | + + + + + Cardiac Panel (12/11/2018 11:20 AM) + + + + + | Component | Value | Ref Range | Performed At | + + + + + | WBC | 10.21 | 3.80 - 11.00 K/uL | [facility] | + + + + + | RBC | 3.77 (L) | 4.20 - 5.70 M/uL | [facility] | + + + + + | HGB | 11.8 (L) | 13.2 - 17.0 g/dL | [facility] | + + + + + [...] (L) | 150 - 400 K/uL | [facility] | + + + + + | MPV | 9.0Comment: NO NORMAL | fl | [facility] | | | RANGE ESTABLISHED | | | + + + + + | DIFF TYPE | AUTOMATED | | [facility] | + + + + + | nRBC | 0.0 | 0 /100WBC | [facility] | + + + + + [...] 3.9 | 1.3 - 4.9 g/dL | [facility] | + + + + + | A/G | 0.9 (L) | 1.0 - 2.4 | [facility] | + + + + + | TBIL | 0.4 | 0.1 - 1.5 mg/dL | [facility] | + + + + + | ALK PHOS | 57 | 35 - 115 U/L | [facility] | + + + + + | AST | 14 | 10 - 45 U/L | [facility] | + + + + + | ALT | 21 | 10 - 65 U/L | [facility] | + + + + + | EGFR | 39 (L)Comment: GFR <60: | >60 mL/min/1.73m2 | [facility] | | | CHRONIC KIDNEY [...] the | | | | | MDRD [facility] traceable | | | | | equation. | | | + + + + + | CPK | 41 (L) | 55 - 400 U/L | [facility] | + + + + + | INR | 1.0Comment: REFERENCE | | [facility] | | | RANGE:0.9 - [...] 25 | 23 - 32 seconds | [facility] | + + + + + | MMB | 1.2 | 0.5 - 3.6 ng/mL | [facility] | + + + + + | CK-MB Index | 2.9Comment: CK INDEX | | [facility] | | | INTERPRETATION: | [...] | | | | | performed at [facility], [address] [place] [address], | | | | | [place] [address] | | | + + + + + + + + + + | Performing | Address | City/State/Zipcode | Phone Number | | Organization | | | | + + + + + | [facility] | [address] | [place] [address] | | + + + + + [...]
--- OUTSIDE RECORDS SUMMARY | ~2018-12-24 | XMS | Encounter Summary ---
Demographics + + + | Address | [address] | | | [place] [address] | + + + | Home Phone | | + + + | Preferred Language | Unknown | + + + | Marital Status | | + + + | Sabianism Affiliation | Unknown | + + + | Race | Unknown | + + + | Ethnic Group | Unknown | + + + Author + + + | Author | [facility] [employer] | + + + | Organization | [facility] | + + [...] Team Providers + +------+ + | Care Drug Enforcement Agent Name | Role | Phone | + +------+ + | Josh Mendoza DO | PCP | | + +------+ + Encounter Details +--------+ + + + + | Date | Type | Department | Care Team | Description | +--------+ + + + + | 12/05/ | Hospital | [facility] | Alex San MD | | | 2019 | Encounter | [facility] | [address], | | | | | Preadmission | [place], [place] | | | | | Services [address] | [address] | | | | | [place], [place] | | | | | | [address] | | | +--------+ + + + [...] + + + | Blood Pressure | 106/66 | 12/05/2018 1:06 PM PDT | + + + + | Pulse | 67 | 12/05/2018 1:06 PM PDT | + + + + | Temperature | - | - | + + + + | Respiratory Rate | - | - | + + + + | Oxygen Saturation | 98% | 12/05/2018 1:06 PM PDT | + + + + | Inhaled Oxygen | - | - | | Concentration | | | + + + + | Weight | 97.4 kg (214 lb 11.7 | 12/05/2018 1:06 PM PDT | | | oz) | | + + + + | Height | 172.7 cm (5' 8") | 12/05/2018 1:06 PM PDT | + + + + | Body Mass Index | 32.65 | 12/05/2018 1:06 PM PDT | + + + + in this encounter Discharge Instructions Tonya Cortez RN - 12/05/2018Formatting of this note may be different from the original. Discharge Instructions for Transurethral Resection ofBladder Tumor [...] 8pounds. Don t lift weights. Don t oyster picker infants or children. Don t mow the lawn or use a vacuum conduit cleaner. Avoid constipation. Use a laxative or [...] won t go away Date Last Reviewed: 09/13/201619993691-1982 [employer]. [address] [place] [address]. All righ ts reserved. This information is not intended as a substitute for professional medical care. Always follow your healthcare professional's instructions. Outpatient Prescriptions Marked as Taking for the 12/05/18 encounter (Hospital Encounter) [facility] ROOM 2 Medication Sig INSTRUCTIONS amiodarone (PACERONE) 200 MG tablet Take 1 tablet by mouth daily. TAKE day of procedure aspirin 81 MG tablet Take 81 mg by mouth daily. HOLD prior to procedure. Take last dose per pt stopped 12/05/2018 carvedilol (COREG) 6.25 MG tablet Take 1 tablet by mouth 2 (two) times daily with meals . TAKE day of procedure ELIQUIS 5 MG tablet Take 5 mg by mouth 2 (two) times daily. HOLD prior to procedure. Ta ke last dose per pt stopped 12/05/2018 finasteride (PROSCAR) 5 MG tablet Take 5 mg by mouth daily. DO NOT TAKE day of procedur e fluticasone (FLONASE) 50 MCG/ACT nasal 1 spray by Each Nare route daily. DO NOT TAKE da y of procedure furosemide (LASIX) 40 MG tablet Take 80 mg by mouth. Take 80mg tablet in the morning an d 80mg tablet in the evening TAKE day of procedure ketoconazole (NIZORAL) 2 % shampoo DO NOT TAKE day of procedure potassium chloride (K-DUR) 10 MEQ tablet Take 10 mEq by mouth daily. DO NOT TAKE day of procedure sacubitril-valsartan (ENTRESTO) 49-51 MG per tablet Take 1 tablet by mouth 2 (two) time s daily. DO NOT TAKE day of procedure spironolactone (ALDACTONE) 50 MG tablet Take 50 mg by mouth daily. TAKE day of procedur e tamsulosin (FLOMAX) 0.4 MG capsule Take 0.4 mg by mouth 2 (two) times daily. DO NOT ALEXI E day of procedure in this encounter Medications at Time of [...] | | | | | [place] [address] | | | | | | [phone] | | | | | | | | +--------+ + + + + | 02/22/ | Office | Cardiology | Juan Hardy | | | 2018 | Visit | | MD [address] | | | | | | [address] | | | | | | [facility] [place] [address] | | | | | | [phone] | | | | | | | [...] | + +--------+ + + + | COMPREHENSIVE | LOYDA | 12/05/2018 | | Results for this | | METABOLIC PANEL | | 1:10 PM | | procedure are in the | | | | PDT | | results section. | + +--------+ + + + in this encounter Results Comprehensive metabolic panel (12/05/2018 1:10 PM) + + + + + | Component | Value | Ref Range | Performed At | + + + + + | SODIUM | 140 | 135 - 145 mmol/L | [facility] | + + + + + | POTASSIUM | 4.7 | 3.5 - 4.9 mmol/L | [facility] | + + + + + | CHLORIDE | 105 | 99 - 109 mmol/L | [facility] | + + + + + | CO2 | 28 | 23 - 32 mmol/L | [facility] | + + + + + | ANION GAP AGAP | 12 | 5 - 20 mmol/L | [facility] | + + + + + | GLUCOSE | 110 (H) | 65 - 99 mg/dL | [facility] | + + + + + | BUN | 55 (H) | 8 - 25 mg/dL | [facility] | + + + + + | CREATININE | 1.39 (H) | 0.70 - 1.30 mg/dL | [facility] | + + + + + | BUN/CREAT | 40 | | [facility] | + + + + + | CALCIUM | 9.4 | 8.5 - 10.5 mg/dL | [facility] | + + + + + | TOTAL PROTEIN | 7.0 | 6.3 - 8.2 g/dL | [facility] | + + + + + | Albumin | 4.5 | 3.3 - 4.8 g/dL | [facility] | + + + + + | GLOBULIN | 2.5 | 1.3 - 4.9 g/dL | [facility] | + + + + + | A/G | 1.8 | 1.0 - 2.4 | [facility] | + + + + + | TBIL | 0.3 | 0.1 - 1.5 mg/dL | [facility] | + + + + + | ALK PHOS | 72 | 35 - 115 U/L | [facility] | + + + + + | AST | 18 | 10 - 45 U/L | [facility] | + + + + + | ALT | 15 | 10 - 65 U/L | [facility] | + + + + + | EGFR | 49 (L)Comment: GFR <60: | >60 mL/min/1.73m2 | [facility] | | | CHRONIC KIDNEY [...] the | | | | | MDRD IDNE traceable | | | | | equation.Testing | | | | | performed at [facility];[address] | | | | | [facility];[place], [place] | | | | | [address] | | | + + + + + + + | Specimen | + + | Blood | + + + + + + + | Performing | Address | City/State/Zipcode | Phone Number | | Organization | | | | + + + + + | [facility] | [address] | [facility] [address] | | + + + + + in this encounter Visit Diagnoses Not on filein this encounter
--- OUTSIDE RECORDS SUMMARY | ~2018-12-24 | XMS | Encounter Summary ---
Demographics + + + | Address | [address] | | | [place] [address] | + + + | Home Phone | | + + + | Preferred Language | Unknown | + + + | Marital Status | | + + + | Oriental Orthodox Affiliation | Unknown | + + + | Race | Unknown | + + + | Ethnic Group | Unknown | + + + Author + + + | Author | [facility] [employer] | + + + | Organization | [facility] | + + + [...] Team Providers + +------+ + | Care Poultry Hatchery Manager Name | Role | Phone | [...] + | 10/03/ | Refill | [facility] | Mariya Bach MA | Medication Refill | | 2019 | | [facility]iology [facility] | | | | | | [address] | | | | | | [place], [place] | | | | | | [address] | | | | | | [phone] | | | +--------+--------+ + + + [...] S | | | | | | [address] | | | | | | [place] [address] | | | | | | [phone] | | | | | | | | +--------+ + + + + | 02/22/ | Office | Cardiology | Juan Hardy | | | 2018 | Visit | | MD [address] | | | | | | [address] | | | | | | [place] [address] | | | | | | [phone] | | | | | | | | +--------+ + + + + | 02/22/ | Documentati | Cardiology | | | | 2019 | on Only | | | | +--------+ + + + + as of this encounter Visit Diagnoses Not on filein this encounter"
--- OUTSIDE RECORDS SUMMARY | ~2018-12-24 | XMS | Encounter Summary ---
Demographics + + + | Address | [address] | | | [place] [address] | + + + | Home Phone | | + + + | Preferred Language | Unknown | + + + | Marital Status | | + + + | Christian Affiliation | Unknown | + + + | Race | Unknown | + + + | Ethnic Group | Unknown | + + + Author + + + | Author | [facility] [employer] | + + + | Organization | [facility] | + + [...] Team Providers + +------+ + | Care Emc Storage Architect Name | Role | Phone | + [...] Description | +--------+---------+ + + + | 11/21/ | Office | [facility] | Juan Hardy | Paroxysmal atrial | | 2019 | Visit | Cardiology [place] | MD [address] | fibrillation ([facility]) | | | | [address] | [address] | (Primary Dx); | | | | [place], [place] | [place] [address] | Nonischemic | | | | [address] | [phone] | cardiomyopathy | | | | [phone] | | ([facility]); Status post | | | | | | internal cardiac | | | | | | defibrillator | | | | | | procedure; Thrombus | | | | | | of left atrial | | | | | | appendage; | | | | | | Obstructive sleep | | | | | | apnea syndrome | +--------+---------+ + + + Social History [...] + + + | Blood Pressure | 98/60 | 11/21/2018 1:16 PM PDT | + + + + | Pulse | 79 | 11/21/2018 1:16 PM PDT | + + + + | Temperature | - | - | + + + + | Respiratory Rate | - | - | + + + + | Oxygen Saturation | 98% | 11/21/2018 1:16 PM PDT | + + + + | Inhaled Oxygen | - | - | | Concentration | | | + + + + | Weight | 97.1 kg (214 lb 1.6 | 11/21/2018 1:16 PM PDT | | | oz) | | + + + + | Height | 172.7 cm (5' 8") | 11/21/2018 1:16 PM PDT | + + + + | Body Mass Index | 32.55 | 11/21/2018 1:16 PM PDT | + + + + in this encounter Progress Notes Juan Hardy MD - 11/21/2018 1:30 PM PDTFormatting of this note may be diffe rent from the original. Subjective: Referring MD: Josh Mendoza* Chief Complaint Patient presents with Follow-up HPI: This is a 78 y.o. male presents today for follow-up of atrial fibrillation and his biv entricular pacemaker/ICD. Since his last visit Mr. Herr underwent cardioversion with res toration of an atrial paced rhythm. He has noted an improvement in his energy level since t he procedure. He continues to do his usual activity without any new limitations or symptoms . He denies any current chest pain, shortness of breath, dizziness, lightheadedness, palpit ations, or recent syncope. He is planning to have prostate surgery in the near future. He continues on anticoagulation with Eliquis. Past Medical History Diagnosis Date Atrial fibrillation (HCC) AC - SHAWN/CVN 10/01 - amio - CVN 11/01 Cardiomyopathy (HCC) Chronic kidney disease cr 1.6 08/30 COPD (chronic obstructive pulmonary disease) (HCC) Hyperlipidemia Hypertension Mitral regurgitation Mod-severe on echo [...] LA/RA dil, mod-sev MR, mod TR, mild MA, RVSP 46 UNLISTED PROCEDURE ARTHROSCOPY Family History [...] Social History Narrative None Review of Systems: All other systems are negative. Current Outpatient Prescriptions Medication Sig Dispense Refill [...] an d 80mg tablet in the evening ketoconazole (NIZORAL) 2 [...] to valacyclovir "kidneys shut down" Objective: Vitals: 11/21/18 1316 BP: 98/60 Pulse: 79 SpO2: 98% Weight: 97.1 kg (214 lb 1.6 oz) Height: 1.727 m (5' 8") Body mass index is 32.55 kg/m. Exam: General: Patient is alert, pleasant, [...] the upper and lower extremities bilateral ly. Left pocket: Incision is well-healed with no erythema, induration, discharge, or pre-erosio n Review of studies: ECG: AV paced at 77 bpm with evidence of biventricular pacing, premature ventricular comple xes, compared to the EKG of October 2018 ventricular premature complexes are noted Device Interrogation: His Medtronic biventricular pacemaker/ICD was interrogated and found to have stable sensing, pacing, and impedance values. No mode switch or ventricular episode s were noted since last interrogation. He paces 86% of the time in the atrium with greater than 96% ventricular pacing. Impression/Plan: Alexi was seen today for follow-up. Paroxysmal atrial fibrillation (HCC) - Electrocardiogram, 12-lead - TSH; Future - Comprehensive metabolic panel; Future Nonischemic cardiomyopathy (HCC) Status post internal cardiac defibrillator procedure Thrombus of left atrial appendage Obstructive sleep apnea syndrome 1) Atrial fibrillation - Mr. Herr reports a history of atrial fibrillation diagnosed sev eral years ago. He was previously on anticoagulation with Eliquis but this was then change d to Plavix over the years. He presented with heart failure symptoms in 2017 and persisten t atrial fibrillation was noted. Anticoagulation with Eliquis was resumed. Evaluation of his biventricular pacemaker/ICD indicatedthat atrial fibrillation recurred in April 2018 and had persisted since. This correlated with his heart failure symptoms. Shinto a nd maintenance of sinus rhythm was recommended to ensure appropriate function of his biventr icular pacemaker and to likely improve his heart failure symptoms. A transesophageal echoc ardiogram was performed but a left atrial appendage thrombus was suggested. Cardioversion could not be performed. He was then continued on anticoagulation and a subsequent transes ophageal echocardiogram demonstrated resolution of the thrombus and cardioversion was perfor med with sikhism of an atrial paced rhythm. He was then started on amiodarone and is no w on 200 mg daily. Unfortunately, atrial fibrillation recurred approximately 3-4 days follo wing cardioversion based on device diagnostics and symptoms amiodarone was then further load ed and he underwent cardioversion more recently with sikhism of an atrial paced rhythm. He continues in an atrial paced rhythm on examination today. He has noted an improvement i n his energy level since being able to maintain an atrial paced rhythm. He continues on ami odarone 200 mg daily and blood work was ordered as above. He will continue on carvedilol 6. 25 mg twice a day. He continues on anticoagulation with Eliquis. 2) Nonischemic cardiomyopathy [...] more effective cardi ac resynchronization therapy with sikhism and maintenance of sinus rhythm. 4) Left atrial appendage thrombus - Atransesophageal echocardiogram performed in 2018 dem onstrated a left atrial appendage thrombus and cardioversion was not performed at that time. Following further anticoagulation transesophageal echocardiogram was performed which demon strated resolution of the thrombus and cardioversion was [...] 2 | | | | | | [facility] [place] [address] | | | | | | [phone] | | | | | | | | +--------+ + + + + | 02/22/ | Office | Cardiology | Juan Hardy | | | 2018 | Visit | | MD [address] | | | | | | [address] | | | | | | [place] [address] | | | | | | [phone] | | | | | | | | +--------+ + + + + | 02/22/ | Documentati | Cardiology | | | | 2018 | on Only | | | | +--------+ + + + + + +--------+ + + | Name | Priori | Associated Diagnoses | Order Schedule | | | ty | | | + +--------+ + + | Electrocardiogram, 12-lead | Routin | Paroxysmal atrial | Ordered: 11/21/2018 | | | e | fibrillation (HCC) | | + +--------+ + + | TSH | Routin | Paroxysmal atrial | Expected: | | | e | fibrillation (HCC) | 11/21/2018, Expires: | | | | | 11/22/2019 | + +--------+ + + | Comprehensive metabolic panel | Routin | Paroxysmal atrial | Expected: | | | e | fibrillation (HCC) | 11/21/2018, Expires: | | | | | 11/22/2019 | + +--------+ + + as of this encounter Visit Diagnoses + + | Diagnosis | + + | Paroxysmal atrial fibrillation (HCC) - Primary | + + | Atrial fibrillation | + + | Nonischemic cardiomyopathy (HCC) | + + | Other primary cardiomyopathies | + + | Status post internal cardiac defibrillator procedure | + + | Automatic implantable cardiac defibrillator in situ | + + | Thrombus of left atrial appendage | + + | Other ill-defined heart disease | + + | Obstructive sleep apnea syndrome | + + | Obstructive sleep apnea (adult) (pediatric) | + +
--- OUTSIDE RECORDS SUMMARY | ~2018-12-24 | XMS | Clinical Summary ---
Demographics + + + | Address | [address] | | | [place] [address] | + + + | Home Phone | | + + + | Preferred Language | Unknown | + + + | Marital Status | | + + + | Sabianism Affiliation | Unknown | + + + | Race | Unknown | + + + | Ethnic Group | Unknown | + + + Author + + + | Author | [facility] | + + + | Organization | [facility] | + + + | Address | Unknown | + + + | Phone | Unavailable | + + + Support + + +---------+ + | Name | Relationship | Address | Phone | + + +---------+ + | Johnathan Ellis | ECON | Unknown | | + + +---------+ + | Cammie Ellis | ECON | Unknown | | + + +---------+ + Care Team Providers + +------+ + | Care Production Quality Analyst Name | Role | Phone | + +------+ + | Josh Mendoza DO | PP | | + +------+ + Allergies + + + + + + | Active Allergy | Reactions | Severity | Noted | Comments | | | | | Date | | + + + + + + | Valacyclovir | Other (See Comments) | Medium | 12/18/19 | Adverse reaction | | | | | 18 | to valacyclovir | | | | | | "kidneys shut down" | + + + + + + Current Medications + + +--------+---------+------+------+-------+ | Prescription | Sig. | Disp. | Refills | Star | End | Statu | | | | | | t | Date | s | | | | | | Date | | | + + +--------+---------+------+------+-------+ | ELIQUIS 5 MG | Take 5 mg by mouth 2 | | | 04/0 | | Activ | | tablet | (two) times daily. | | | 20 | | e | | | | | | 16 | | | + + +--------+---------+------+------+-------+ | furosemide (LASIX) | Take 80 mg by mouth. | | | 03/0 | | Activ | | 40 MG tablet | Take 80mg tablet in | | | 20 | | e | | | the morning and | | | 16 | | | | | 80mg tablet in the | | | | | | | | evening | | | | | | + + +--------+---------+------+------+-------+ | aspirin 81 MG | Take 81 mg by mouth | | | | | Activ | | tablet | daily. | | | | | e | + + +--------+---------+------+------+-------+ | finasteride | Take 5 mg by mouth | | | | | Activ | | (PROSCAR) 5 MG | daily. | | | | | e | | tablet | | | | | | | + + +--------+---------+------+------+-------+ | potassium chloride | Take 10 mEq by mouth | | | | | Activ | | (K-DUR) 10 MEQ | daily. | | | | | e | | tablet | | | | | | | + + +--------+---------+------+------+-------+ | spironolactone | Take 50 mg by mouth | | | | | Activ | | (ALDACTONE) 50 MG | daily. | | | | | e | | tablet | | | | | | | + + +--------+---------+------+------+-------+ | tamsulosin | Take 0.4 mg by mouth | | | | | Activ | | (FLOMAX) 0.4 MG | 2 (two) times | | | | | e | | capsule | daily. | | | | | | + + +--------+---------+------+------+-------+ | | Take 1 tablet by | | | | | Activ | | sacubitril-valsartan | mouth 2 (two) times | | | | | e | | (ENTRESTO) 49-51 MG | daily. | | | | | | | per tablet | | | | | | | + + +--------+---------+------+------+-------+ | fluticasone | 1 spray by Each Nare | | | | | Activ | | (FLONASE) 50 MCG/ACT | route daily. | | | | | e | | nasal | | | | | | | + + +--------+---------+------+------+-------+ | amiodarone | Take 1 tablet by | 90 | 3 | 01/2 | | Activ | | (PACERONE) 200 MG | mouth daily. | tablet | | 1/20 | | e | | tablet | | | | 19 | | | + + +--------+---------+------+------+-------+ | ketoconazole | | | | 01/0 | | Activ | | (NIZORAL) 2 % | | | | /20 | | e | | shampoo | | | | 19 | | | + + +--------+---------+------+------+-------+ | carvedilol (COREG) | Take 1 tablet by | | | 01/3 | | Activ | | 6.25 MG | mouth 2 (two) times | | | 0/20 | | e | | tabletIndications: | daily with meals. | | | 19 | | | | Persistent atrial | | | | | | | | fibrillation (HCC) | | | | | | | + + +--------+---------+------+------+-------+ | | Take 1 tablet by | 15 | 0 | 03/2 | | Activ | | HYDROcodone-acetamin | mouth every 6 (six) | tablet | | 9/20 | | e | | ophen (NORCO) 5-325 | hours as needed for | | | 19 | | | | MG per tablet | Pain. | | | | | | + + +--------+---------+------+------+-------+ Active Problems + + + | Problem | Noted Date | + + + | BPH with obstruction/lower urinary tract symptoms | 07/25/2018 | + + + | Paresthesias | 07/25/2018 | + + + + + | Overview: feet | + + + + + | Tachycardia | 07/25/2018 | + + + | Atrial fibrillation (HCC) | 07/25/2018 | + + + | Cellulitis of lower extremity | 06/20/2018 | + + + | History of OK (myocardial infarction) | 12/17/2017 | + + + | Pacemaker | 12/17/2017 | + + + | Retention of urine | 12/17/2017 | + + + | Chronic systolic CHF (congestive heart failure) | 02/17/2016 | + + + | COPD (chronic obstructive pulmonary disease) | 02/17/2016 | + + + | HTN (hypertension) | 02/17/2016 | + + + | Transaminitis | 02/17/2016 | + + + | Acute renal insufficiency | 02/17/2016 | + + + | Elevated digoxin level | 02/17/2016 | + + + | Shingles | 02/17/2016 | + + + | Syncope and collapse | 02/17/2016 | + + + | Hyperlipidemia | | + + + Resolved Problems + + + + | Problem | Noted | Resolved | | | Date | Date | + + + + | Acute exacerbation of CHF (congestive heart failure) ([facility]) | 06/20/20 | | | | 18 | 8 | + + + + | Other and unspecified hyperlipidemia | 02/17/20 | | | | 16 | 8 | + + + + Encounters +--------+ + + + + | Date | Type | Specialty | Care Team | Description | +--------+ + + + + | 12/11/ | Emergency | | Sina Conrad, | Flank pain (Primary | | 2018 | | | DO | Dx); Hematuria, | | | | | | unspecified type | +--------+ + + + + | 12/09/ | Hospital | | Alex San MD | Benign bladder mass | | 2018 | Encounter | | | | +--------+ + + + + | 12/09/ | Anesthesia | | Tariq Mullins, | | | 2018 | Event | | CHEMICAL DETECTION EXPERT | | +--------+ + + + + | 12/09/ | Procedure | | | | | 2018 | Pass | | | | +--------+ + + + + | 12/09/ | Surgery | | Alex San MD | CYSTOSCOPY - TURB | 2018 | | | | | +--------+ + + + + | 12/08/ | Orders Only | | Alex San MD | | | 2018 | | | | | +--------+ + + + + | 12/08/ | Orders Only | | Alex San MD | | | 2018 | | | | | +--------+ + + + + | 12/05/ | Hospital | | BoiseAlex MD | | | 2018 | Encounter | | | | +--------+ + + + + | 11/21/ | Office | | Juan Holt | Paroxysmal atrial | | 2018 | Visit | | MD Fredi | fibrillation (HCC) | | | | | | (Primary Dx); | | | | | | 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 | | | | | | (HCC); Status post | | | | | | internal cardiac | | | | | | defibrillator | | | | | | procedure; Thrombus | | | | | | of left atrial | | | | | | appendage; | | | | | | Obstructive sleep | | | | | | apnea syndrome | +--------+ + + + + | 11/21/ | Documentati | | | Cardiac | | 2019 | on Only | | | Resynchronization | | | | | | Therapy - | | | | | | Defibrillator | | | | | | (in-office) | +--------+ + + + + | 11/03/ | Telephone | | Teddy Arboleda RN | | | 2019 | | | | | +--------+ + + + + | 11/01/ | Hospital | | Juan Holt | Persistent atrial | | 2018 | Encounter | | MD Fredi 6, [facility] | fibrillation (HCC) | | | | | Otr Driver | | +--------+ + + + + | 11/01/ | Anesthesia | | Hoang Traylor MD | | | 2019 | Event | | | | +--------+ + + + + | 10/12/ | Documentati | | | Cardiac | | 2019 | on Only | | | Resynchronization | | | | | | Therapy - | | | | | | Defibrillator (in | | | | | | office) | +--------+ + + + + | 10/12/ | Office | | Juan Holt | Persistent atrial | | 2018 | Visit | | MD Fredi | fibrillation (HCC) | | | | | | (Primary Dx) | +--------+ + + + + | 10/12/ | Procedure | | | | | 2018 | Pass | | | | +--------+ + + + + | 10/03/ | Refill | | Mariya Bach MA | Medication Refill | | 2018 | | | | | +--------+ + + + + from Last 3 Months Immunizations + + + + | Name | Dates Previously Given | Next Due | + + + + | Hepatitis A Adult | 05/18/2014 | | + + + + | Hepatitis B Adult | 10/19/2014, 07/19/2014, 05/18/2014 | | + + + + | INFLUENZA PF, | 06/22/2018 | | | QUADRIVALENT | | | | (PED/ADOL/ADULT) | | | + + + + | INFLUENZA, PF | 06/08/2017, 08/04/2016, 07/27/2011, | | | TRIVALENT HIGH DOSE | 07/09/2011 | | | 65 YRS OR > | | | + + + + | Influenza, Trivalent | 07/16/2015, 06/28/2013, 08/01/2012, | | | W/Preservative | 06/03/2010, 05/22/2009, 06/29/2008 | | + + + + | Pneumococcal | 08/04/2016 | | | Conjugate 13-valent | | | + + + + | Pneumococcal | 06/22/2018, 07/27/2011 | | | Polysaccharide | | | | 23-valent | | | + + + + | Tdap | 12/17/2017 | | + + + + | Zoster (Live) | 08/04/2016 | | + + + + Family History + + +------+ + | Medical History | Relation | Name | Comments | + + +------+ + | Coronary art dis | Brother | | | + + +------+ + | Heart disease | Brother | | | + + +------+ + | Coronary art dis | Father | | | + + +------+ + | Heart disease | Father | | | + + +------+ + | Cancer | Maternal | | | | | Grandmoth | | | | | er | | | + + +------+ + | Hypertension | Mother | | | + + +------+ + | Coronary art dis | Paternal | | | | | Grandmoth | | | | | er | | | + + +------+ + | Heart disease | Sister | | | + + +------+ + + +------+--------+ + | Relation | Name | Status | Comments | + +------+--------+ + | Brother | | | | + +------+--------+ + | Father | | | | + +------+--------+ + | Maternal Grandmother | | | | + +------+--------+ + | Mother | | | | + +------+--------+ + | Paternal Grandmother | | | | + +------+--------+ + | Sister | | | | + +------+--------+ + Social History + +-------+ +--------+ + [...] on file | | + + + Last Filed Vital Signs + + + [...] AM PDT | + + + + Plan of Treatment +--------+ + + + + | Date | Type | Specialty | Care Team | Description | +--------+ + + + + | 01/23/ | Office | | Josh Mendoza | | | 2018 | Visit | | DO [address] | | | | | [address] | | | | | | [place] [address] | | | | | | [phone] | | | | | | | | +--------+ + + + + | 02/22/ | Office | | Juan Holt | | | 2018 | Visit | | MD Fredi [address] | | | | | [address] | | | | | | [place] [address] | | | | | | [phone] | | | | | | | | +--------+ + + + + | 02/22/ | Documentati | | | | | 2019 | on Only | | | | +--------+ + + + + + + + + + | Health Maintenance | Due Date | Last Done | Comments | + + + + + | Vaccine: Zoster (2 | | 08/04/2016 | | | of 3) | 7 | | | + + + + + | Statin Therapy | | | | | (optimal intensity) | 7 | | | + + + + + | Vaccine: | | 12/17/2017 | | | Dtap/Tdap/Td (2 - | 8 | | | | Td) | | | | + + + + + | Vaccine: Influenza | Completed | 06/22/2018, 06/08/2017, | | | | | 08/04/2016, Additional history | | | | | exists | | + + + + + | Vaccine: | Completed | 06/22/2018, 08/04/2016, | | | Pneumococcal 65+ | | 07/27/2011 | | | High/Highest Risk | | | | + + + + + Procedures + +--------+ + + + | [...] | + +--------+ + + + | [employer] CARD PANEL W/O | STAT | 12/11/2018 [...] notifi | | | ed | +---+--------+ + +--------+ + + + | COMPREHENSIVE [...] section. | + +--------+ + + + from Last 3 Months Results US lower extremity venous doppler right [...] VENOUS DUPLEX, RIGHT LOWER EXTREMITY CLINICAL | MYLESC | | INFORMATION: Right leg swelling, recent [...] | Procedure Note | + + | Enrique, Rad Results In - 12/11/2018 11:53 AM PDT [...] | + + + + + | [facility] | [address] | [place] [address] | | + + + + + Urinalysis (reflex to microscopic/reflex to culture) (12/11/2018 11:24 AM) + + + + + | Component | Value | Ref Range | Performed At | + + + + + | COLOR UA | COLORLESS | | [facility] | + + + + + | CLARITY | CLEAR | | [facility] | + + + + + | Specific Onyx, UA | 1.010 | 1.001 - 1.035 | [facility] | + + + + + | LEUKOCYTE ESTERASE | SMALL (A) | NEGATIVE | [facility] | + [...] | 5.5 | 4.6 - 8.0 | [facility] | + + + + + | BLOOD | LARGE (A) | NEGATIVE | [facility] | + + + + + | KETONES | NEGATIVE | NEGATIVE mg/dL | [facility] | + + + + + | BILIRUBIN | NEGATIVE | NEGATIVE | [facility] | + + + + + | GLUCOSE | NEGATIVEComment: Testing | NEGATIVE mg/dL | [facility] | | | performed at [facility], [address] | [address] [place] [address], | | | | | [place] [address] | | | + + + + + + + | Specimen | + + | Urine - Urine, | | Catheter | + + + + + + + | Performing | Address | City/State/Zipcode | Phone Number | | Organization | | | | + + + + + | [facility] | [address] | [place] [address] | | + + + + + Urine microscopic only (12/11/2018 11:24 AM) + + + + + | Component | Value | Ref Range | Performed At | + + + + + | WBC | 6-10 | 0 - 5 /hpf | [facility] | + + + + + | RBC | 50-100 | 0 - 2 /hpf | [facility] | + + + + + | EPITHELIAL | 1-5 | /lpf | [facility] | + + + + + | BACTERIA | 2+ (A) | NONE SEEN | [facility] | + + + + + | Mucus, UA | 1+ | | [facility] | + + + + + | Casts | 0-2Comment: HYALINE | /lpf | [facility] | + + + + + | Urinalysis Comments | CULTURE TO | | [facility] | | | FOLLOWComment: Testing | | | | | performed at [facility], [address] | [address] [place], | | | | | [place] [address] | | | + + + + + + + + + + | Performing | Address | City/State/Zipcode | Phone Number | | Organization | | | | + + + + + | [facility] | [address] | [place] [address] | | + + + + + [...] | + + + + + | [facility] | [address] | [place] [address] | [phone] | | LABORATORY | [address] | | | + + + + + Cardiac Panel (12/11/2018 11:20 AM) + + + + + | Component | Value | Ref Range | Performed At | + + + + + | WBC | 10.21 | 3.80 - 11.00 K/uL | [facility] | + + + + + | RBC | 3.77 (L) | 4.20 - 5.70 M/uL | [facility] | + + + + + | HGB | 11.8 (L) | 13.2 - 17.0 g/dL | [facility] | + + + + + | HCT | 36.4 (L) | 39.0 - 50.0 % | [facility] | + + + + + | MCV | 96.6 | 80.0 - 100.0 fl | [facility] | + + + + + | MCH | 31.3 | 27.0 - 34.0 pg | [facility] | + + + + + | MCHC | 32.4 | 32.0 - 35.5 g/dL | [facility] | + + + + + | RDW SD | 44.6 | 37 - 53 fl | [facility] | + + + + + | PLT | 148 (L) | 150 - 400 K/uL | [facility] | + + + + + | MPV | 9.0Comment: NO NORMAL | fl | [facility] | | | RANGE ESTABLISHED | | | + + + + + | DIFF TYPE | AUTOMATED | | [facility] | + + + + + | nRBC | 0.0 | 0 /100WBC | [facility] | + + + [...] | 0.03Comment: NO NORMAL | K/uL | [facility] | | | RANGE ESTABLISHED | | | + + + + + | LYMPHOCYTES ABS | 1.29 | 1.00 - 3.90 K/uL | [facility] | + + + + + | MONOCYTES ABS | 0.71 | 0.00 - 0.80 K/uL | [facility] | + + [...] 3.9 | 3.5 - 4.9 mmol/L | [facility] | + + + + + | CHLORIDE | 99 | 99 - 109 mmol/L | [facility] | + + + + + | CO2 | 30 | 23 - 32 mmol/L | [facility] | + + + + + | ANION GAP AGAP | 12 | 5 - 20 mmol/L | [facility] | + + + + + | GLUCOSE | 148 (H) | 65 - 99 mg/dL | [facility] | + + + + + | BUN | 60 (H) | 8 - 25 mg/dL | [facility] | + + + + + | CREATININE | 1.71 (H) | 0.70 - 1.30 mg/dL | [facility] | + + + + + | BUN/CREAT | 35 | | [facility] | + + + + + | CALCIUM | 9.0 | 8.5 - 10.5 mg/dL | [facility] | + + + + + | TOTAL PROTEIN | 7.6 | 6.3 - 8.2 g/dL | [facility] | + + + + + | Albumin | 3.7 | 3.3 - 4.8 g/dL | [facility] | + + + + + | GLOBULIN | 3.9 | 1.3 - 4.9 g/dL | [facility] | + + + + + | A/G | 0.9 (L) | 1.0 - 2.4 | [facility] | + + + + + | TBIL | 0.4 | 0.1 - 1.5 mg/dL | [facility] | + + + + + | ALK PHOS | 57 | 35 - 115 U/L | [facility] | + + + + + | AST | 14 | 10 - 45 U/L | [facility] | + + + + + | ALT | 21 | 10 - 65 U/L | [facility] | + + + + + | EGFR | 39 (L)Comment: GFR <60: | >60 mL/min/1.73m2 | [facility] | | | CHRONIC KIDNEY [...] IDMS traceable | | | | | equation. | | | + + + + + | CPK | 41 (L) | 55 - 400 U/L | [facility] | + + + + + | INR | 1.0Comment: REFERENCE | | [facility] | | | RANGE:0.9 - [...] 25 | 23 - 32 seconds | [facility] | + + + + + | MMB | 1.2 | 0.5 - 3.6 ng/mL | [facility] | + + + + + | CK-MB Index | 2.9Comment: CK INDEX | | [facility] | | | INTERPRETATION: | [...] | | | | | performed at [facility], [address] [place] [address], | | | | | [place] [address] | | | + + + + + + + + + + | Performing | Address | City/State/Zipcode | Phone Number | | Organization | | | | + + + + + | [facility] | [address] | [place] [address] | | + + + + + Pathology histology - tissue (12/09/2018 1:00 PM) + + | Specimen | + + | Tissue | + + + + + | Narrative | Performed At | + + + | SPECIMEN(S): A BLADDER TUMOR SPECIMEN SOURCE: A. BLADDER TUMOR | [facility] | | CLINICAL HISTORY: Bladder tumor. FINAL [...] | | TCC. COMMENT: As part of [facility] Quality Improvement | | | Program, this [...] | | | component was performed by [facility], [address] [place] [address], | | | [facility] [address] (Grinder Machine Knife Setter: Lorraine Ku MD; CLIA# [id number]). | | | Professional interpretation was performed by [facility], | | | [address] [address] | | | (Grinder Machine Knife Setter: Radu Velasco M.D.; CLIA#: [id number]). | | | Diagnostician: Lorraine Ku MD [...] procedure without a radiologist report and | [facility] | | is used for image storage only. Please review the OR procedure | RADIOLOGY | | report for details on the procedure. | | + + + + + + + + | Performing | Address | City/State/Zipcode | Phone Number | | Organization | | | | + + + + + | [facility] | [address] | [place] [address] | | + + + + + Comprehensive metabolic panel (12/05/2018 1:10 PM) + + + + + | Component | Value | Ref Range | Performed At | + + + + + | SODIUM | 140 | 135 - 145 mmol/L | [facility] | + + + + + | POTASSIUM | 4.7 | 3.5 - 4.9 mmol/L | [facility] | + + + + + | CHLORIDE | 105 | 99 - 109 mmol/L | [facility] | + + + + + | CO2 | 28 | 23 - 32 mmol/L | [facility] | + + + + + | ANION GAP AGAP | 12 | 5 - 20 mmol/L | [facility] | + + + + + | GLUCOSE | 110 (H) | 65 - 99 mg/dL | [facility] | + + + + + | BUN | 55 (H) | 8 - 25 mg/dL | [facility] | + + + + + | CREATININE | 1.39 (H) | 0.70 - 1.30 mg/dL | [facility] | + + + + + | BUN/CREAT | 40 | | [facility] | + + + + + | CALCIUM | 9.4 | 8.5 - 10.5 mg/dL | [facility] | + + + + + | TOTAL PROTEIN | 7.0 | 6.3 - 8.2 g/dL | [facility] | + + + + + | Albumin | 4.5 | 3.3 - 4.8 g/dL | [facility] | + + + + + | GLOBULIN | 2.5 | 1.3 - 4.9 g/dL | [facility] | + + + + + | A/G | 1.8 | 1.0 - 2.4 | [facility] | + + + + + | TBIL | 0.3 | 0.1 - 1.5 mg/dL | [facility] | + + + + + | ALK PHOS | 72 | 35 - 115 U/L | [facility] | + + + + + | AST | 18 | 10 - 45 U/L | [facility] | + + + + + | ALT | 15 | 10 - 65 U/L | [facility] | + + + + + | EGFR | 49 (L)Comment: GFR <60: | >60 mL/min/1.73m2 | [facility] | | | CHRONIC KIDNEY [...] | | | | | performed at [facility];[address] | | | | [address];[place] | | | | | [address] | | | + + + + + + + | Specimen | + + | Blood | + + + + + + + | Performing | Address | City/State/Zipcode | Phone Number | | Organization | | | | + + + + + | [facility] | [address] | [place] [address] | | + + + + + CL cardioversion elective (11/01/2018 4:23 PM) + + + | Narrative | Performed At | + + + | | [facility] | | | RADIOLOGY | | PREOPERATIVE | | | DIAGNOSIS: Atrial fibrillation. POSTOPERATIVE | | | DIAGNOSIS: Atrial fibrillation, status post cardioversion with | | | holiness of atrioventricular paced rhythm. PROCEDURES: | | | 1. Direct current synchronized cardioversion. 2. Interrogation | | | of biventricular pacemaker/implantable cardioverter defibrillator | | | with reprogramming. PERFORMING: Juan Holt MD. | | | SEDATION: Conscious sedation [...] 3. Cardioversion performed | | | with holiness of an AV paced rhythm in the 70s. 4. Stable | | | lead parameters on device interrogation. CARDIOVERSION PERFORMED | | | FOLLOWS: Atrial fibrillation converted with a 200 Joule | | | synchronized external biphasic shock with holiness of an AV paced | | | [...] noted above | | | with ultimate holiness of AV paced rhythm in the 70s. [...] + | Martinez Nunez Results In - 12/01/2018 12:51 PM PDT | | | | | | | | PREOPERATIVE DIAGNOSIS: Atrial fibrillation. | | | | POSTOPERATIVE DIAGNOSIS: Atrial fibrillation, status post cardioversion | | with holiness of atrioventricular paced rhythm. | | | | PROCEDURES: | | 1. Direct current synchronized cardioversion. | | 2. Interrogation of biventricular pacemaker/implantable cardioverter | | defibrillator with reprogramming. | | | | PERFORMING: Juan Holt MD. | | | | SEDATION: Conscious [...] cardioversion. | | 3. Cardioversion performed with holiness of an AV paced rhythm in the | | 70s. | | 4. Stable lead parameters on device interrogation. | | | | CARDIOVERSION PERFORMED FOLLOWS: Atrial fibrillation converted with a | | 200 Joule synchronized external biphasic shock with holiness of an AV | | paced rhythm [...] as noted above with ultimate | | holiness of AV paced rhythm in the 70s. [...] | | | | Read by JUAN HOLT MD 11/01/2018 03:29 P | | | | | + + + + + + + | Performing | Address | City/State/Zipcode | Phone Number | | Organization | | | | + + + + + | [facility] | [address] | [place] [address] | | + + + + + EKG STANDARD 12 LEAD (11/01/2018 3:28 PM)Only the most recent of 3 results within the time period is included. + + + + + | Component [...] QTC Calculation | 562 | ms | [facility] | | (Bezet) | | | | + + + + + | Calculated R [place] | 179 | degrees | [facility] | + + + + + | Diagnosis | AV dual-paced | | [facility] | | | rhythmAbnormal ECGWhen | [...] | + + + + + | [facility] | [address] | [place] [address] | | + + + + + CBC w/auto diff (reflex to manual) (11/01/2018 2:00 PM) + + + + + | Component | Value | Ref Range | Performed At | + + + + + | WBC | 5.19 | 3.80 - 11.00 K/uL | [facility] | + + + + + | RBC | 4.07 (L) | 4.20 - 5.70 M/uL | [facility] | + + + + + | HGB | 13.5 | 13.2 - 17.0 g/dL | [facility] | + + + + + | HCT | 38.6 (L) | 39.0 - 50.0 % | [facility] | + + + + + | MCV | 94.8 | 80.0 - 100.0 fl | [facility] [...] 180 | 150 - 400 K/uL | [facility] | + + + + + | MPV | 6.9 | fl | [facility] | + + + + + | DIFF TYPE | AUTOMATED | | [facility] | + + + + + | NEUTROPHILS | 56.99 | % | [facility] | + + + + + | LYMPHOCYTES | 29.83 | % | [facility] | + + + [...] 0.51 | 0.00 - 0.80 K/uL | [facility] | + + + + + | EOSINOPHILS ABS | 0.13 | 0.00 - 0.50 K/uL | [facility] | + + + + + | BASOPHILS ABS | 0.04Comment: Testing | 0.00 - 0.10 K/uL | [facility] | | | performed at [facility] | | | | | [address];[place] | | | | | [id number] | | | + + + + + + + | Specimen | + + | Blood | + + + + + + + | Performing | Address | City/State/Zipcode | Phone Number | | Organization | | | | + + + + + | [facility] | [address] | [place] [address] | | + + + + + Basic metabolic panel (11/01/2018 2:00 PM) + + + + + | Component | Value | Ref Range | Performed At | + + + + + | SODIUM | 144 | 135 - 145 mmol/L | [facility] | + + + + + | POTASSIUM | 4.5 | 3.5 - 4.9 mmol/L | [facility] | + + + + + | CHLORIDE | 106 | 99 - 109 mmol/L | [facility] [...] (H) | 0.70 - 1.30 mg/dL | [facility] | + + + + + | BUN/CREAT | 30 | | [facility] | + + + + + | CALCIUM | 9.1 | 8.5 - 10.5 mg/dL | [facility] | + + + + + | EGFR | 53 (L)Comment: GFR <60: | >60 mL/min/1.73m2 | [facility] | | | CHRONIC KIDNEY [...] | | | | | performed at [facility];[address] | | | | | [address];[place] | | | | | [address] | | | + + + + + + + | Specimen | + + | Blood | + + + + + + + | Performing | Address | City/State/Zipcode | Phone Number | | Organization | | | | + + + + + | [facility] | [address] | [place] [address] | | + + + + + from Last 3 Months Insurance + +--------+ +------+-------+ + | Payer | Benefi | Subscriber | Type | Phone | Address | | | t Plan | ID | | | | | | / | | | | | | | Group | | | | | + +--------+ +------+-------+ + | MEDICARE | MEDICA | [id number] | | | [address] | | | RE | | | | [place] [address] | | | IP-OP | | | | | + +--------+ +------+-------+ + | UNITED HEALTHCARE | UNITED | [id number] | | | | | | | | | | | | | HEALTH | | | | | | | CARE - | | | | | | | AARP | | | | | + +--------+ +------+-------+ + + +--------+ +--------+ + + | Guarantor Name | Accoun | Relation to | Date | Phone | Billing Address | | | t Type | Patient | of | | | | | | | | | | + +--------+ +--------+ + + | BERNARDO ELLIS | Person | Self | [birth year] Home: | [address] | | [place] | kaylin/Luan | | 1941 | [phone] [place] | | | [place]ers | | | [phone] | [phone] | + +--------+ +--------+ + +
--- OUTSIDE RECORDS SUMMARY | ~2018-12-24 | XMS | Encounter Summary ---
Demographics + + + | Address | [address] | | | [place] [address] | + + + | Home Phone | | + + + | Preferred Language | Unknown | + + + | Marital Status | | + + + | Baptist Affiliation | Unknown | + + + | Race | Unknown | + + + | Ethnic Group | Unknown | + + + Author + + + | Author | [employer] [employer] | + + + | Organization | [facility] | + + + | [...] Team Providers + +------+ + | Care Head Of Marketing Analytics Name | Role | Phone | + +------+ + | Josh Mendoza DO | PCP | | + +------+ + Encounter Details +--------+ + + + + | Date | Type | Department | Care Team | Description | +--------+ + + + + | 12/08/ | Orders Only | [facility] | Alex San MD | | | 2019 | | [facility] | [address]FIG), | | | | | [address] | [facility] [place] | | | | | [place] [address] | [address] | | | | | [phone] | | | +--------+ + + + [...] | | | | | [address] | | | | | | [place] [address] | | | | | | [phone] | | | | | | | | +--------+ + + + + | 02/22/ | Office | Cardiology | Juan Hardy | | | 2019 | Visit | | [address] | | | | | | [address] | | | | | | [place] [address] | | | | | | [phone] | | | | | | | | +--------+ + + + + | 02/22/ | Documentati | Cardiology | | | | 2019 | on Only | | | | +--------+ + + + + as of this encounter Visit Diagnoses Not on filein this encounter"
--- OUTSIDE RECORDS SUMMARY | ~2018-12-24 | XMS | Encounter Summary ---
Demographics + + + | Address | [address] | | | [place] [address] | + + + | Home Phone [...] + + + | Author | [employer] [employer] | + + + | Organization | [facility] | + + + [...] Team Providers + +------+ + | Care Manager Of Tires Sales Name | Role | Phone | + +------+ + | Josh Mendoza DO | PCP | | + +------+ + Encounter Details +--------+ + + + + | Date | Type | Department | Care Team | Description | +--------+ + + + + | 11/01/ | Anesthesia | [facility] | Hoang Traylor MD | | | 2019 | Event | [facility] | [address] | | | | | Lab [address] | [place] [address] | | | | | [place] [address] | [phone] | | | | | [phone] | | | +--------+ + + + + Anesthesia Record + + + + + | Procedure Name | Responsible | Anesthesia Start | Anesthesia Stop Time | | | Anesthesiologist | Time | | + + + + + | CL CARDIOVERSION | Hoang Traylor MD | 11/01/18 1512 | 11/01/18 1523 | | DEFIBRILLATION | | | | + + + + + +----+---+ + + | Da | T | Event | Comment | | te | i | | | | | m | | | | | e | | | +----+---+ + + | 02 | 1 | An Start | Pre-anesthetic vital signs reassessed. | | /1 | 5 | | | | 9/ | 1 | | | | 20 | 2 | | | | 19 | | | | +----+---+ + + | | 1 | an stop | | | | 5 | data | | | | 2 | | | | | 1 | | | +----+---+ + + | | 1 | An Stop | | | | 5 | | | | | 2 | | | | | 3 | | | +----+---+ + + +------+ | Meds | +------+ + +--------+ | Name | Total | + +--------+ | propofol bolus | 120 mg | + +--------+ | sodium chloride 0.9 % infusion | 200 mL | + +--------+ + + | Name | + + | Aux O2 (L/min) | + + + + | No blood administrations on file. | + + +--------+ + + + | Type | Details | Placement | Removal | +--------+ + + + | Wound | 02/17/16; 2100; Yes; Other | 02/17/16 2100 by | | | | (Comment) (Shingles [...] + + | Periph | Placement Date: 11/01/18; | 11/01/18 1413 by | 11/01/18 1608 by | | eleanor | Placement Time: 1413; Removal | Nahomy Villagomez | Nahomy Villagomez | | IV | Date: 11/01/18; Removal Time: | DAVID Juárez | DAVID Juárez | | | 1608; Size (Gauge): 20 G; | | | | | Orientation: Right; Location: | | | | | Antecubital; Insertion Attempts: | | | | | 1 | | | +--------+ + + [...] | | | | | [place] [address] | | | | | | [phone] | | | | | | | | +--------+ + + + + | 02/22/ | Office | Cardiology | Juan Hardy | | | 2018 | Visit | | [address] | | | | | | [address] | | | | | | [place] [address] | | | | | | [phone] | | | | | | | [...] | | | + +--------+ +--------+------+------+ | propofol (DIPRIVAN) injection | Given | | 120 mg | | | | Intravenous, PRN, Starting Tue | | 9 15:21 | | | | | 11/01/18 at 1521, Anesthesia | | PST | | | | | Intra-op | | | | | | + +--------+ +--------+------+------+ +---+---+ | | | +---+---+ + +---------+ +---+ +---+ | sodium chloride 0.9 % infusion | New Bag | | | 10 mL/hr | | | at 10 mL/hr, Intravenous, | | 9 14:16 | | | | | Continuous, Starting 11/01/18 | | PST | | | | | at 1400, Pre-op | | | | | | + +---------+ +---+ +---+ +---------+ +---+---+---+ | New Bag | | | | | | | 9 15:11 | | | | | | PST | | | | +---------+ +---+---+---+ +---+---+ | | | +---+---+ in this encounter"
--- OUTSIDE RECORDS SUMMARY | ~2018-12-24 | XMS | Encounter Summary ---
Demographics + + + | Address | [address] | | | [place] [address] | + + + | Home Phone | | + + + | Preferred Language | Unknown | + + + | Marital Status | | + + + | Voodoo Affiliation | Unknown | + + + | Race | Unknown | + + + | Ethnic Group | Unknown | + + + Author + + + | Author | [facility] [employer] | + + + | Organization | [facility] | + + + [...] Team Providers + +------+ + | Care Assembler Skylights Name | Role | Phone | + [...] + | 10/12/ | Documentati | [facility] | | Cardiac | | 2019 | on Only | [facility] [place] | | Resynchronization | | | | [address] | | Therapy - | | | | [place] | | Defibrillator (in | | | | [address] | | office) | | | | [phone] | | | +--------+ + + + [...] encounter for additional details. Tech: Catherine Haas [facility] Associated attestation - Juan Hardy MD [...] | | | | | [place] [address] | | | | | | [phone] | | | | | | | | +--------+ + + + + | 02/22/ | Office | Cardiology | Juan Hardy | | | 2018 | Visit | | MD [address] | | | | | | [address] | | | | | | [place] [address] | | | | | | [phone] | | | | | | | [...]
--- OUTSIDE RECORDS SUMMARY | ~2018-12-24 | XMS | Encounter Summary ---
Demographics + + + | Address | [address] | | | [place] [address] | + + + | Home Phone | | + + + | Preferred Language | Unknown | + + + | Marital Status | | + + + | Baptism Affiliation | Unknown | + + + | Race | Unknown | + + + | Ethnic Group | Unknown | + + + Author + + + | Author | [facility] [employer] | + + + | Organization [...] Team Providers + +------+ + | Care Grocery Specialist Name | Role | Phone | [...] + | 11/21/ | Documentati | [facility] | | Cardiac | | 2019 | on Only | [facility] [place] | | Resynchronization | | | | [address] | | Therapy - | | | | [place], [place] | | Defibrillator | | | | [address] | | (in-office) | | | | [phone] | | | +--------+ + + + [...] [address] | | | | | | [place] [address] | | | | | | [phone] | | | | | | | | +--------+ + + + + | 02/22/ | Office | Cardiology | Juan Hardy | | | 2018 | Visit | | MD [address] | | | | | | [address] | | | | | | [place] [address] | | | | | | [phone] | | | | | | | [...]
--- OUTSIDE RECORDS SUMMARY | ~2018-12-24 | XMS | Encounter Summary ---
Demographics + + + | Address | [address] | | | [place] [address] | + + + | Home Phone | | + + + | Preferred Language | Unknown | + + + | Marital Status | | + + + | Adventist Affiliation | Unknown | + + + | Race | Unknown | + + + | Ethnic Group | Unknown | + + + Author + + + | Author | [employer] | + + + | Organization | [facility] | + [...] Team Providers + +------+ + | Care Ethanol Quality Leader Name | Role | Phone | + +------+ + | Josh Mendoza DO | PCP | | + +------+ + Encounter Details +--------+ + + + + | Date | Type | Department | Care Team | Description | +--------+ + + + + | 12/09/ | Hospital | [facility] | Alex San MD | Benign bladder mass | | 2019 | Encounter | [facility] | [address], | | | | | [address] [facility] | [place] | | | | | [place] [address] | [address] | | | | | [phone] | | | +--------+ + + + [...] Make a follow up appointment next Wednesday morning with Dr. San. Briane Enoc on Wednesday. Discharge Instructions for Transurethral [...] 8pounds. Don t lift weights. Don t picker tender infants or children. Don t mow the lawn or use a vacuum hand rug cleaner. Avoid constipation. Use a laxative or [...] won t go away Date Last Reviewed: 09/13/201619991156-1156 [employer]. [address] [place] [address]. All righ ts reserved. This information is [...] Weakness, dizziness, or fainting Date Last Reviewed: 06/13/201619990816-7885 [employer] [address] [place] [address]. All righ ts reserved. This information is not intended as a substitute for professional medical care. Always follow your healthcare professional's instructions. Acetaminophen; Hydrocodone tablets or capsules Brand Names: Anexsia, Lorcet, Lorcet HD, Lorcet Plus, Lortab, [place], Verdrocet, Vicodin, Vi codin ES, Vicodin HP, [...] information carefully each time. Talk to your sheep or calf grader regarding the use of this medicine in children. Special care may be needed. What side effects may I notice from receiving this medicine? Side effects that you should report to your doctor or health care director as soon as p ossible: allergic reactions [...] attention (report to your doctor or health care director if they continue or are bothersome): constipation [...] to an official disposal site. Contact the [facility] at [phone] or your [facility] government to find a site. If [...] this medicine? Tell your doctor or health care director if your pain does not go away, [...] days, call your doctor or health care professi sandy. Your mouth may get dry. Chewing sugarless gum or sucking hard candy, and drinking plenty of water may help. Contact your doctor if the problem does not go away or is severe. NOTE:This sheet is a summary. It may not cover all possible information. If you have questi ons about this medicine, talk to your doctor, pharmacist, or health care provider. Copyright 2019 [employer] [facility] You ve just had [...] | | | | | [address] [address] | | | | | | [place] [address] | | | | | | [phone] | | | | | | | | +--------+ + + + + | 02/22/ | Office | Cardiology | Juan Hardy | | | 2018 | Visit | | MD [address] | | | | | | [address] | | | | | | [place] [address] | | | | | | [phone] | | | | | | | [...] TUMOR SPECIMEN SOURCE: A. BLADDER TUMOR | [facility] | | CLINICAL HISTORY: Bladder [...] | | TCC. COMMENT: As part of [employer]' Quality Improvement | | | Program, this [...] | | | component was performed by [facility], [address] [place] [address], | | | [facility] [address] (Poultry Husbandman: Lorraine Ku MD; CLIA# [id number]). | | | Professional interpretation was performed by [facility], | | | [facility], [address] [place] [address] | | | (Poultry Husbandman: Radu Velasco M.D.; DELILAH#: [id number]). | | | Diagnostician: Lorraine Ku MD Pathologist Electronically Signed | | | 12/12/2018 | | + + + + +---------+ + + | Performing | Address | City/State/Zipcode | Phone Number | | Organization | | | | + +---------+ + + | [facility] | | | | + +---------+ [...] | + + + + + | [facility] | [address] | [place] [address] | | + + + + + in this encounter Visit Diagnoses + + | Diagnosis | + + | Benign bladder mass | + + | Benign neoplasm of bladder | + + Admitting Diagnoses + + [...] to option 2., | | | Starting 12/09/18 at 1003, | | | PACU | | + +---+ | | | + +---+ | fentaNYL (SUBLIMAZE) injection | | | 50 mcg 50 mcg, Intravenous, | | | Every 5 Min PRN, Pain, Option One | | | for pain scale 5-10/10. If no | | | relief, proceed to option 2., | | | Starting 12/09/18 at 1003, [...] Two for pain scale | | | 5-10/10. If no relief, proceed to | | [...] RR < 6, | | | Starting 12/09/18 at 1003, [...] PRN, Nausea, Vomiting, | | | Starting Wed12/09/18 at 1054 | | + +---+ | [...] nausea or vomiting, Starting | | | Wed12/09/18 at 1003, For 2 doses, | | [...] tolerating oral fluids, | | | Starting Wed12/09/18 at 1054 | | + +---+ | | | + +---+ in this encounter
--- OUTSIDE RECORDS SUMMARY | ~2018-12-24 | XMS | Encounter Summary ---
Demographics + + + | Address | [address] | | | [place] [address] | + + + | Home Phone | | + + + | Preferred Language | Unknown | + + + | Marital Status | | + + + | Alevism Affiliation | Unknown | + + + | Race | Unknown | + + + | Ethnic Group | Unknown | + + + Author + + + | Author | [employer] [employer] | + + + | Organization | [facility] | + + [...] Team Providers + +------+ + | Care Veterans' Counselor Name | Role | Phone | + +------+ + | Josh Mendoza DO | PCP | | + +------+ + Encounter Details +--------+ + + + + | Date | Type | Department | Care Team | Description | +--------+ + + + + | 10/12/ | Procedure | [facility] [place] | | | | 2019 | Pass | [place] | | | | | | [address] | | | | | | [place] | | | | | | [address] | | | | | | [phone] | | | +--------+ + + + [...] | | | | | [address] [place] [address] | | | | | | [place] [address] | | | | | | [phone] | | | | | | | | +--------+ + + + + | 02/22/ | Office | Cardiology | Juan Hardy | | | 2019 | Visit | | MD [address] | | | | | | [address] | | | | | | [place] [address] | | | | | | [phone] | | | | | | | | +--------+ + + + + | 02/22/ | Documentati | Cardiology | | | | 2019 | on Only | | | | +--------+ + + + + as of this encounter Visit Diagnoses Not on filein this encounter"
--- OUTSIDE RECORDS SUMMARY | ~2018-12-24 | XMS | Encounter Summary ---
Demographics + + + | Address | [address] | | | [place] [address] | + + + | Home Phone | | + + + | Preferred Language | Unknown | + + + | Marital Status | | + + + | Holiness Affiliation | Unknown | + + + | Race | Unknown | + + + | Ethnic Group | Unknown | + + + Author + + + | Author | [facility] [employer] [facility] | + + + | Organization [...] Team Providers + +------+ + | Care Crime Prevention Police Officer Name | Role | Phone | + +------+ + | Josh Mendoza DO | PCP | | + +------+ + Encounter Details +--------+ + + + + | Date | Type | Department | Care Team | Description | +--------+ + + + + | 11/03/ | Telephone | [facility] | Teddy Arboleda RN | | | 2018 | | [place] | | | | | | [address] | | | | | | [place] | | | | | | [address] | | | | | | [phone] | | | +--------+ + + + [...] | | | | | [place] [address] | | | | | | [phone] | | | | | | | | +--------+ + + + + | 02/22/ | Office | Cardiology | Juan Hardy | | | 2019 | Visit | | MD [address] | | | | | | [address] | | | | | | [place] [address] | | | | | | [phone] | | | | | | | | +--------+ + + + + | 02/22/ | Documentati | Cardiology | | | | 2019 | on Only | | | | +--------+ + + + + as of this encounter Visit Diagnoses Not on filein this encounter"
--- OUTSIDE RECORDS SUMMARY | ~2018-12-24 | XMS | Encounter Summary ---
Demographics + + + | Address | [address] | | | [place] [address] | + + + | Home Phone | | + + + | Preferred Language | Unknown | + + + | Marital Status | | + + + | Confucianist Affiliation | Unknown | + + + | Race | Unknown | + + + | Ethnic Group | Unknown | + + + Author + + + | Author | [facility] [employer] | + + + | Organization | [facility] | + + + [...] Team Providers + +------+ + | Care Cork Pressing Machine Operator Name | Role | Phone | [...] [place] | | | | | | [address] | | | | | | [phone] | | | +--------+ + + + [...] | | | | | [address] | | | | | | [place] [address] | | | | | | [phone] | | | | | | | | +--------+ + + + + | 02/22/ | Office | Cardiology | Juan Hardy | | | 2019 | Visit | | MD [address] | | | | | | [address] | | | | | | [place] [address] | | | | | | [phone] | | | | | | | | +--------+ + + + + | 02/22/ | Documentati | Cardiology | | | | 2019 | on Only | | | | +--------+ + + + + as of this encounter Visit Diagnoses Not on filein this encounter"
--- OUTSIDE RECORDS SUMMARY | ~2018-12-24 | XMS | Encounter Summary ---
Demographics + + + | Address | [address] | | | [place] [address] | + + + | Home Phone | | + + + | Preferred Language | Unknown | + + + | Marital Status | | + + + | Shinto Affiliation | Unknown | + + + | Race | Unknown | + + + | Ethnic Group | Unknown | + + + Author + + + | Author | [facility] [employer] | + + + | Organization | [facility] | + + + [...] Team Providers + +------+ + | Care Bridge Painter Helper Name | Role | Phone | + +------+ + | Josh Mendoza DO | PCP | | + +------+ + Encounter Details +--------+ + + + + | Date | Type | Department | Care Team | Description | +--------+ + + + + | 12/05/ | Hospital | [facility] | Alex Sna MD | | | 2019 | Encounter | [facility] | [address], | | | | | Preadmission | [place], [place] | | | | | Services [address] | [address] | | | | | [place], [place] | | | | | | [address] | | | +--------+ + + + [...] 8pounds. Don t lift weights. Don t picking belt operator infants or children. Don t mow the lawn or use a vacuum fish cleaner. Avoid constipation. Use a laxative or [...] won t go away Date Last Reviewed: 09/13/201619992866-8857 [employer]. [address] [place] [address]. All righ ts reserved. This information is not intended as a substitute for professional medical care. Always follow your healthcare professional's instructions. Outpatient Prescriptions Marked as Taking for the 12/05/18 encounter (Hospital Encounter) [facility] ROOM 2 Medication Sig INSTRUCTIONS amiodarone (PACERONE) [...] | | | | | [place] [address] | | | | | | [phone] | | | | | | | | +--------+ + + + + | 02/22/ | Office | Cardiology | Juan Haryd | | | 2018 | Visit | | MD [address] | | | | | | [address] | | | | | | [place] [address] | | | | | | [phone] | | | | | | | [...] 0.3 | 0.1 - 1.5 mg/dL | [facility] | + + + + + | ALK PHOS | 72 | 35 - 115 U/L | [facility] | + + + + + | AST | 18 | 10 - 45 U/L | [facility] | + + + + + | ALT | 15 | 10 - 65 U/L | [facility] | + + + + + | EGFR | 49 (L)Comment: GFR <60: | >60 mL/min/1.73m2 | [facility] | | | CHRONIC KIDNEY [...] the | | | | | MDRD IDNY traceable | | | | | equation.Testing | | | | | performed at [place];[address] | | | | | [facility];[place], [place] | | | | | [address] | | | + + + + + + + | Specimen | + + | Blood | + + + + + + + | Performing | Address | City/State/Zipcode | Phone Number | | Organization | | | | + + + + + | [facility] | [address] | [place] [address] | | + + + + + in this encounter Visit Diagnoses Not on filein this encounter
--- OUTSIDE RECORDS SUMMARY | ~2018-12-24 | XMS | Encounter Summary ---
Demographics + + + | Address | [address] | | | [place] [address] | + + + | Home Phone | | + + + | Preferred Language | Unknown | + + + | Marital Status | | + + + | Sikhism Affiliation | Unknown | + + + | Race | Unknown | + + + | Ethnic Group | Unknown | + + + Author + + + | Author | [facility] [employer] | + + + | Organization | [facility] | + + + [...] Team Providers + +------+ + | Care Spanish Instructor Name | Role | Phone | + [...] + | 10/12/ | Office | [facility] | Juan Hardy | Persistent atrial | | 2019 | Visit | Cardiology Kane | MD [address]i [address] | fibrillation (HCC) | | | | [address] | [address] [address] | (Primary Dx) | | | | [place], [place] | [place] [address] | | | | | [address] | [phone] | | | | | [phone] | | | +--------+---------+ + + + [...] thrombus. Cardiov ersion was then performed with hoahaoism of sinus rhythm area he was then started on amiod arone and is now on 200 mg daily. He was told to decrease his carvedilol to 3.125 mg twice a day by his tipple boss but he is not sure as to [...] 1.6 08/30 COPD (chronic obstructive pulmonary disease) ([facility]) Hyperlipidemia Hypertension Mitral regurgitation Mod-severe on echo [...] LA/RA dil, mod-sev MR, mod TR, mild IA, RVSP 46 UNLISTED PROCEDURE ARTHROSCOPY Family History [...] except water with medications; Standing - Void mailing section clerk; Standing - CBC w/auto diff (reflex to [...] This correlated with his heart failure symptoms. Muslim and maintenance of sinus rhythm was recommended [...] recently and cardioversion was pe rformed with hoahaoism of an atrial paced rhythm. He was [...] more effective cardi ac resynchronization therapy with hoahaoism and maintenance of sinus rhythm. 4) Left atrial appendage thrombus - A transesophageal echocardiogram performed in 2018 demo nstrated a left atrial appendage thrombus and cardioversion was not performed at that time. Following further anticoagulation transesophageal echocardiogram was performed [facility] demonstrated resolution of the thrombus and cardioversion [...] 2 | | | | | | [place] [address] | | | | | | [phone] | | | | | | | | +--------+ + + + + | 02/22/ | Office | Cardiology | Juan Hardy | | | 2018 | Visit | | MD [address]i [address] | | | | | | [address] | | | | | | [place] [address] | | | | | | [phone] | | | | | | | [...] status post cardioversion with | | | hoahaoism of atrioventricular paced rhythm. PROCEDURES: | | [...] 3. Cardioversion performed | | | with hoahaoism of an AV paced rhythm in the 70s. 4. Stable | | | lead parameters on device interrogation. CARDIOVERSION PERFORMED | | | FOLLOWS: Atrial fibrillation converted with a 200 Joule | | | synchronized external biphasic shock with hoahaoism of an AV paced | | | [...] noted above | | | with ultimate hoahaoism of AV paced rhythm in the 70s. [...] fibrillation, status post cardioversion | | with hoahaoism of atrioventricular paced rhythm. | | | [...] cardioversion. | | 3. Cardioversion performed with hoahaoism of an AV paced rhythm in the | | 70s. | | 4. Stable lead parameters on device interrogation. | | | | CARDIOVERSION PERFORMED FOLLOWS: Atrial fibrillation converted with a | | 200 Joule synchronized external biphasic shock with hoahaoism of an AV | | paced rhythm [...] as noted above with ultimate | | hoahaoism of AV paced rhythm in the 70s. [...] [facility] | [address] | [place] [address] | | + + + + + [...] + + + + | Calculated R [place] | -140 | degrees | [facility] | + + + + + | Calculated T [place] | 25 | degrees | [facility] | + + + + + | Diagnosis | Please refer to | | [facility] | | | Providers office visit | | | | | note for Providers | | | | | Interpretation.Confirmed | | | | | by [facility] [place] Read Only, | | | | | ICA Beatriz ([id number]), | | | | | international editorial producer Tomas Bailon | | | | | ([id number]) on 10/12/2018 | | | | | 10:46:11 AM | | | + + + + + + + + + + | Performing | Address | City/State/Zipcode | Phone Number | | Organization | | | | + + + + + | [facility] | [address] | [place] [address] | | + + + + + in this encounter Visit Diagnoses + + | Diagnosis | + + | Persistent atrial fibrillation (HCC) - Primary | + + | Atrial fibrillation | + +
--- OUTSIDE RECORDS SUMMARY | ~2018-12-24 | XMS | Encounter Summary ---
Demographics + + + | Address | [address] | | | [place] [address] | + + + | Home Phone | | + + + | Preferred Language | Unknown | + + + | Marital Status | | + + + | Advent Affiliation | Unknown | + + + | Race | Unknown | + + + | Ethnic Group | Unknown | + + + Author + + + | Author | [employer] [employer] | + + + | Organization | [facility] | + + + | [...] Team Providers + +------+ + | Care Test Design Engineer Name | Role | Phone | + +------+ + | Josh Mendzoa DO | PCP | | + +------+ + Reason for Visit Diagnostic Lab (Routine) +--------+--------+ + + + + | Status | Reason | Specialty | Diagnoses / | Referred By | Referred To | | | | | Procedures | Contact | Contact | +--------+--------+ + + + + | Closed | | Radiology | Diagnoses | Hayley, | [facility] Cath | | | | | Eileen(gregorio | Juan | Lab [address] | | | | | jaziel), D/C, | MD Fredi | [address] | | | | | Consent | [address] | [place], [place] | | | | | signed, | [place] | [address] Phone: | | | | | BLOODLESS | ALONSO F | [phone] | | | | | MEDICINE | [place], [place] | | | | | | Procedures | [address] | | | | | | CL | Phone: | | | | | | CARDIOVERSIO | [phone] | | | | | | N / DEFIB | Fax: | | | | | | | [phone] | | +--------+--------+ + + + + Encounter Details +--------+ + + + + | Date | Type | Department | Care Team | Description | +--------+ + + + + | 11/01/ | Hospital | [facility] | Juan Hardy | Persistent atrial | | 2019 | Encounter | [facility] | MD Fredi [address] | fibrillation (HCC) | | | | Lab [address] | [place] | | | | | [place] [address] | [place] [address] | | | | | [phone] | [phone] | | | | | | | | | | | | 6, [facility] Email Marketing Manager | | +--------+ + + + + [...] You can't be awakened Date Last Reviewed: 06/30/201619992024-0815 [employer]. [address] [place] [address], [place] [address]. All righ ts reserved. This information is [...] issues from blood-thinning medicines Date Last Reviewed: 11/11/201619996080-9170 [employer]. [address] [place] [address]. All righ ts reserved. This information is [...] | | | | | [address] | | | | | | [place] [address] | | | | | | [phone] | | | | | | | | +--------+ + + + + | 02/22/ | Office | Cardiology | Juan Hardy | | | 2018 | Visit | | MD [address]i [address] | | | | | | [address] | | | | | | [place] [address] | | | | | | [phone] | | | | | | | [...] QTC Calculation | 562 | ms | [facility] | | (Bezet) | | | | + + + + + | Calculated R [place] | 179 | degrees | [facility] | + + + + + | Diagnosis | AV dual-paced | | [facility] | | | rhythmAbnormal ECGWhen | [...] | [address] | [place] [address] | | + + + + + [...] + + + + | Calculated R [place] | 8 | degrees | [facility] | + + + + + | Calculated T [place] | 75 | degrees | [facility] [...] | + + + + + | [facility] | [address] | [place] [address] | | + + + + + CBC w/auto diff (reflex to manual) (11/01/2018 2:00 PM) + + + + + | Component | Value | Ref Range | Performed At | + + + + + | WBC | 5.19 | 3.80 - 11.00 K/uL | [facility] | + + + + + | RBC | 4.07 (L) | 4.20 - 5.70 M/uL | [facility] | + + + + + | HGB | 13.5 | 13.2 - 17.0 g/dL | [facility] | + + + + + | HCT | 38.6 (L) | 39.0 - 50.0 % | [facility] | + + + + + | MCV | 94.8 | 80.0 - 100.0 fl | [facility] | + + + + + [...] Testing | 0.00 - 0.10 K/uL | [facility] | | | performed at [facility];[address] | | | | | [address];[place] | | | | | [address] | | | + + + + + + + | Specimen | + + | Blood | + + + + + + + | Performing | Address | City/State/Zipcode | Phone Number | | Organization | | | | + + + + + | [facility] | [address] | [place] [address] | | + + + + + [...] + | BUN/CREAT | 30 | | [facility] | + + + + + | CALCIUM | 9.1 | 8.5 - 10.5 mg/dL | [facility] | + + + + + | EGFR | 53 (L)Comment: GFR <60: | >60 mL/min/1.73m2 | [facility] | | | CHRONIC KIDNEY DISEASE, [...] | | | | | performed at [facility];[address] | | | | | [address];[place], [place] | | | | | [address] | | | + + + + + + + | Specimen | + + | Blood | + + + + + + + | Performing | Address | City/State/Zipcode | Phone Number | | Organization | | | | + + + + + | [facility] | [address] | [place] [address] | | + + + + + [...]
--- OUTSIDE RECORDS SUMMARY | ~2018-12-24 | XMS | Encounter Summary ---
Demographics + + + | Address | [address] | | | [place] [address] | + + + | Home Phone | | + + + | Preferred Language | Unknown | + + + | Marital Status | | + + + | Muslim Affiliation | Unknown | + + + | Race | Unknown | + + + | Ethnic Group | Unknown | + + + Author + + + | Author | [employer] [employer] | + + + | Organization | [facility] | + + [...] Team Providers + +------+ + | Care Title Inspector Name | Role | Phone | + +------+ + | Josh Mendoza DO | PCP | | + +------+ + Encounter Details +--------+ + + + + | Date | Type | Department | Care Team | Description | +--------+ + + + + | 12/09/ | Procedure | [facility] | | | | 2019 | [facility] | [facility] | | | | | | Operating Room [address] | | | | | | [address] | | | | | | [place] [address] | | | | | | [phone] | | | +--------+ + + + [...] | | | | | [address] | | | | | | [place] [address] | | | | | | [phone] | | | | | | | | +--------+ + + + + | 02/22/ | Office | Cardiology | Juan Hardy | | | 2019 | Visit | | MD [address] | | | | | | [address] | | | | | | [place] [address] | | | | | | [phone] | | | | | | | | +--------+ + + + + | 02/22/ | Documentati | Cardiology | | | | 2019 | on Only | | | | +--------+ + + + + as of this encounter Visit Diagnoses Not on filein this encounter"
--- OUTSIDE RECORDS SUMMARY | ~2018-12-24 | XMS | Clinical Summary ---
Demographics + + + | Address | [address] | | | [place] [address] | + + + | Home Phone | | + + + | Preferred Language | Unknown | + + + | Marital Status | | + + + | Mosque Affiliation | Unknown | + + + | Race | Unknown | + + + | Ethnic Group | Unknown | + + + Author + + + | Author | [facility] [employer] | + + + | Organization | [facility] | + + + | [...] Team Providers + +------+ + | Care Living Advisor Name | Role | Phone | + [...] | + + + | History of [place] (myocardial infarction) | 12/17/2017 | + + [...] Acute exacerbation of CHF (congestive heart failure) ([facility]) | 06/20/20 | | | | 18 [...] | | 2018 | Event | | OUTSIDE MACHINIST APPRENTICE | | +--------+ + + + + [...] + | 12/05/ | Hospital | | Cowp[place] MD | | | 2018 | Encounter [...] | Encounter | | MD Fredi 6, [facility] | fibrillation (HCC) | | | | | [place] | | +--------+ + + + + [...] | | | | | [address] | | | | | | [place] [address] | | | | | | [phone] | | | | | | | | +--------+ + + + + | 02/22/ | Office | | Juan Holt | | | 2018 | Visit | | MD [address] | | | | | | [address] | | | | | | [place] [address] | | | | | | [phone] | | | | | | | [...] | + +--------+ + + + | INTEX Program CARD PANEL W/O | STAT | 12/11/2018 [...] | + + + + + | [facility] | [address] | [place] [address] | | + + + + + Urinalysis (reflex to microscopic/reflex to culture) (12/11/2018 11:24 AM) + + + + + | Component | Value | Ref Range | Performed At | + + + + + | COLOR UA | COLORLESS | | [facility] | + + + + + | CLARITY | CLEAR | | [facility] | + + + + + | Specific [place], [place]A | 1.010 | 1.001 - 1.035 | [facility] | + + + + + [...] KETONES | NEGATIVE | NEGATIVE mg/dL | [facility] | + + + + + | BILIRUBIN | NEGATIVE | NEGATIVE | [facility] | + + + + + | GLUCOSE | NEGATIVEComment: Testing | NEGATIVE mg/dL | [facility] | | | performed at [facility], [address] | | | | [address] [place] [address], | | | | | [place] [address] | | | + + + + + + + | Specimen | + + | Urine - Urine, | | Catheter | + + + + + + + | Performing | Address | City/State/Zipcode | Phone Number | | Organization | | | | + + + + + | [facility] | [address] | [place] [address] | | + + + + + Urine microscopic only (12/11/2018 11:24 AM) + + + + + | Component | Value | Ref Range | Performed At | + + + + + | WBC | 6-10 | 0 - 5 /hpf | [facility] | + + + + + [...] Urinalysis Comments | CULTURE TO | | [facility] | | | FOLLOWComment: Testing | | | | | performed at [facility], [address] | | | | | [address] [place], | | | | | [place] [address] | | | + + + + + + + + + + | Performing | Address | City/State/Zipcode | Phone Number | | Organization | | | | + + + + + | [facility] | [address] | [place] [address] | | + + + + + [...] + + + + + | [facility] | [address] | [place] [address] | [phone] | | LABORATORY | [address] | | | + + + + + Cardiac Panel (12/11/2018 11:20 AM) + + + + + | Component | Value | Ref Range | Performed At | + + + + + | WBC | 10.21 | 3.80 - 11.00 K/uL | [facility] | + + + + + | RBC | 3.77 (L) | 4.20 - 5.70 M/uL | [facility] | + + + + + [...] 44.6 | 37 - 53 fl | [facility] | + + + + + | PLT | 148 (L) | 150 - 400 K/uL | [facility] | + + + + + | MPV | 9.0Comment: NO NORMAL | fl | [facility] | | | RANGE ESTABLISHED | [...] (H) | 65 - 99 mg/dL | [facility] | + + + + + | BUN | 60 (H) | 8 - 25 mg/dL | [facility] | + + + + + | CREATININE | 1.71 (H) | 0.70 - 1.30 mg/dL | [facility] | + + + + + | BUN/CREAT | 35 | | [facility] | + + + + + | CALCIUM | 9.0 | 8.5 - 10.5 mg/dL | [facility] | + + + + + | TOTAL PROTEIN | 7.6 | 6.3 - 8.2 g/dL | [facility] | + + + + + | Albumin | 3.7 | 3.3 - 4.8 g/dL | [facility] | + + + + + | GLOBULIN | 3.9 | 1.3 - 4.9 g/dL | [facility] | + + + + + | A/G | 0.9 (L) | 1.0 - 2.4 | [facility] | + + + + + | TBIL | 0.4 | 0.1 - 1.5 mg/dL | [facility] | + + + + + | ALK PHOS | 57 | 35 - 115 U/L | [facility] | + + + + + | AST | 14 | 10 - 45 U/L | [facility] | + + + + + | ALT | 21 | 10 - 65 U/L | [facility] | + + + + + | EGFR | 39 (L)Comment: GFR <60: | >60 mL/min/1.73m2 | [facility] | | | CHRONIC KIDNEY DISEASE, [...] (L) | 55 - 400 U/L | [facility] | + + + + + | INR | 1.0Comment: REFERENCE | | [facility] | | | RANGE:0.9 - | [...] 25 | 23 - 32 seconds | [facility] | + + + + + | MMB | 1.2 | 0.5 - 3.6 ng/mL | [facility] | + + + + + | CK-MB Index | 2.9Comment: CK INDEX | | [facility] | | | INTERPRETATION: | | [...] | | | | | performed at [facility], [address] | | | | [address] [place] [address], | | | | | [place] [address] | | | + + + + + + + + + + | Performing | Address | City/State/Zipcode | Phone Number | | Organization | | | | + + + + + | [facility] | [address] | [place] [address] | | + + + + + Pathology histology - tissue (12/09/2018 1:00 PM) + + | Specimen | + + | Tissue | + + + + + | Narrative | Performed At | + + + | SPECIMEN(S): A BLADDER TUMOR SPECIMEN SOURCE: A. BLADDER TUMOR | [facility] | | CLINICAL HISTORY: Bladder tumor. [...] | | TCC. COMMENT: As part of [employer] Quality Improvement | | | Program, this [...] | | | component was performed by [employer] [address] [place] [address], | | | [facility] [address] (Lease Analyst: Lorraine Ku MD; CLIA# [id number]). | | | Professional interpretation was performed by [employer] | | | [address] [address] | | | (Lease Analyst: Radu Velasco M.D.; CLIA#: [id number]). | | | Diagnostician: Lorraine Ku MD [...] | + + + + + | [facility] | [address] | [place] [address] | | + + + + + [...] 72 | 35 - 115 U/L | [facility] | + + + + + | AST | 18 | 10 - 45 U/L | [facility] | + + + + + | ALT | 15 | 10 - 65 U/L | [facility] | + + + + + | EGFR | 49 (L)Comment: GFR <60: | >60 mL/min/1.73m2 | [facility] | | | CHRONIC KIDNEY DISEASE, [...] | | | | | performed at [facility];[address] | | | | | [address];[place] | | | | | [address] | | | + + + + + + + | Specimen | + + | Blood | + + + + + + + | Performing | Address | City/State/Zipcode | Phone Number | | Organization | | | | + + + + + | [facility] | [address] | [place] [address] | | + + + + + CL cardioversion elective (11/01/2018 4:23 PM) + + + | Narrative | Performed At | + + + | | [facility] | | | RADIOLOGY | | PREOPERATIVE | | | DIAGNOSIS: Atrial fibrillation. POSTOPERATIVE | | | DIAGNOSIS: Atrial fibrillation, status post cardioversion with | | | gnosticist of atrioventricular paced rhythm. PROCEDURES: | | [...] 3. Cardioversion performed | | | with gnosticist of an AV paced rhythm in the 70s. 4. Stable | | | lead parameters on device interrogation. CARDIOVERSION PERFORMED | | | FOLLOWS: Atrial fibrillation converted with a 200 Joule | | | synchronized external biphasic shock with gnosticist of an AV paced | | | [...] noted above | | | with ultimate gnosticist of AV paced rhythm in the 70s. [...] fibrillation, status post cardioversion | | with gnosticist of atrioventricular paced rhythm. | | | [...] cardioversion. | | 3. Cardioversion performed with gnosticist of an AV paced rhythm in the | | 70s. | | 4. Stable lead parameters on device interrogation. | | | | CARDIOVERSION PERFORMED FOLLOWS: Atrial fibrillation converted with a | | 200 Joule synchronized external biphasic shock with gnosticist of an AV | | paced rhythm [...] as noted above with ultimate | | gnosticist of AV paced rhythm in the 70s. [...] [facility] | [address] | [place] [address] | | + + + + + [...] + + + + | Calculated R [place] | 179 | degrees | [facility] | + + + + + | Diagnosis | AV dual-paced | | [facility] | | | rhythmAbnormal ECGWhen | [...] | + + + + + | [facility] | [address] | [place] [address] | | + + + + + CBC w/auto diff (reflex to manual) (11/01/2018 2:00 PM) + + + + + | Component | Value | Ref Range | Performed At | + + + + + | WBC | 5.19 | 3.80 - 11.00 K/uL | [facility] | + + + + + | RBC | 4.07 (L) | 4.20 - 5.70 M/uL | [facility] | + + + + + | HGB | 13.5 | 13.2 - 17.0 g/dL | [facility] | + + + + + [...] 180 | 150 - 400 K/uL | [facility] | + + + + + [...] 0.13 | 0.00 - 0.50 K/uL | [facility] | + + + + + | BASOPHILS ABS | 0.04Comment: Testing | 0.00 - 0.10 K/uL | [facility] | | | performed at [facility] | | | | | [address];[place] | | | | | [address] | | | + + + + + + + | Specimen | + + | Blood | + + + + + + + | Performing | Address | City/State/Zipcode | Phone Number | | Organization | | | | + + + + + | [facility] | [address] | [place] [address] | | + + + + + [...] (H) | 0.70 - 1.30 mg/dL | [facility] | + + + + + | BUN/CREAT | 30 | | [facility] | + + + + + | CALCIUM | 9.1 | 8.5 - 10.5 mg/dL | [facility] | + + + + + | EGFR | 53 (L)Comment: GFR <60: | >60 mL/min/1.73m2 | [facility] | | | CHRONIC KIDNEY DISEASE, [...] | | | | | performed at [facility];[address] | | | | | [address];[place] | | | | | [address] | | | + + + + + + + | Specimen | + + | Blood | + + + + + + + | Performing | Address | City/State/Zipcode | Phone Number | | Organization | | | | + + + + + | [facility] | [address] | [place] [address] | | + + + + + [...] +------+-------+ + | MEDICARE | MEDICA | [id number] | | | [address] | | | RE | | | | [place] [address] | | | IP-OP | | | | | + +--------+ +------+-------+ + | [employer]ARE | UNITED | [id number] | | | | | | | [...] Self | [birth year] | Home: | [address] | | [place] | kaylin/Luan | | 1941 | [phone] | [place] | | | [place] | | | [phone] | [address] | + +--------+ +--------+ + +
--- OUTSIDE RECORDS SUMMARY | ~2018-12-24 | XMS | Encounter Summary ---
Demographics + + + | Address | [address] | | | [place] [address] | + + + | Home Phone | | + + + | Preferred Language | Unknown | + + + | Marital Status | | + + + | Muslim Affiliation | Unknown | + + + | Race | Unknown | + + + | Ethnic Group | Unknown | + + + Author + + + | Author | [employer] | + + + | Organization | [facility] | + + + [...] Team Providers + +------+ + | Care Harmonica Maker Name | Role | Phone | + +------+ + | Josh Mendoza DO | PCP | | + +------+ + Encounter Details +--------+---------+ + + + | Date | Type | Department | Care Team | Description | +--------+---------+ + + + | 12/09/ | Surgery | [facility] | Alex San MD | CYSTOSCOPY - TURB | | 2019 | | [facility] | [address], | | | | | Operating Room [address] | [place] | | | | | [address] | [id number] | | | | | [place] [address] | | | | | | [phone] | | | +--------+---------+ + + + [...] Don t lift weights. Don t picking crew supervisor infants or children. Don t mow the lawn or use a vacuum strip cleaner. Avoid constipation. Use a laxative or [...] won t go away Date Last Reviewed: 09/13/201619997002-8056 [employer]. [address] [place] [address]. All righ ts reserved. This information is [...] Weakness, dizziness, or fainting Date Last Reviewed: 06/13/201619999978-6405 [employer]. [address] [place] [address]. All righ ts reserved. This information is not intended as a substitute for professional medical care. Always follow your healthcare professional's instructions. Acetaminophen; Hydrocodone tablets or capsules Brand Names: Anexsia, Lorcet, Lorcet HD, Lorcet Plus, Lortab, Dinosaur, Verdrocet, Vicodin, Vi codin ES, Vicodin HP, [...] information carefully each time. Talk to your field crop farmer regarding the use of this medicine in children. Special care may be needed. What side effects may I notice from receiving this medicine? Side effects that you should report to your doctor or health home care provider as soon as p ossible: allergic reactions [...] attention (report to your doctor or health home care provider if they continue or are bothersome): constipation [...] official disposal site. Contact the [employer] at [phone] or your [facility] government to find a site. If [...] this medicine? Tell your doctor or health home care provider if your pain does not go away, [...] pharmacist, or health care provider. Copyright 2019 [employer] After Your Surgery You ve just had [...] | | | | | [address] | | | | | | [place] [address] | | | | | | [phone] | | | | | | | | +--------+ + + + + | 02/22/ | Office | Cardiology | Juan Hardy | | | 2018 | Visit | | MD [address] | | | | | | [address] | | | | | | [place] [address] | | | | | | [phone] | | | | | | | [...] TUMOR SPECIMEN SOURCE: A. BLADDER TUMOR | [facility] | | CLINICAL HISTORY: Bladder tumor. FINAL [...] | | TCC. COMMENT: As part of [employer]' Quality Improvement | | | Program, this [...] | | | component was performed by [employer], [address] [place] [address], | | | [facility] [address] (Hooker Off: Lorraine Ku MD; CLIA# [id number]). | | | Professional interpretation was performed by [employer], | | | [facility], [address] [place] [id number] | | | (Hooker Off: Radu Velasco M.D.; DELILAH#: [id number]). | | | Diagnostician: Lorraine Ku MD [...] | + + + + + | [facility] | [address] | [place] [address] | | + + + + + [...]
--- OUTSIDE RECORDS SUMMARY | ~2018-12-24 | XMS | Encounter Summary ---
Demographics + + + | Address | [address] | | | [place] [address] | + + + | Home Phone | | + + + | Preferred Language | Unknown | + + + | Marital Status | | + + + | Adventist Affiliation | Unknown | + + + | Race | Unknown | + + + | Ethnic Group | Unknown | + + + Author + + + | Author | [employer] | + + + | Organization [...] Team Providers + +------+ + | Care Boiler Engineer Name | Role | Phone | + +------+ + | Josh Mendoza DO | PCP | | + +------+ + Encounter Details +--------+ + + + + | Date | Type | Department | Care Team | Description | +--------+ + + + + | 11/01/ | Anesthesia | [facility] | Hoang Traylor MD | | | 2019 | Event | [facility] | [address] | | | | | Lab [address] | [place] [address] | | | | | [place] [address] | [phone] | | | | | [phone] | | | +--------+ + + + [...] | | | | | [place] [address] | | | | | | [phone] | | | | | | | | +--------+ + + + + | 02/22/ | Office | Cardiology | Juan Hardy | | | 2018 | Visit | | MD [address] | | | | | | [address] | | | | | | [place] [address] | | | | | | [phone] | | | | | | | [...]
--- OUTSIDE RECORDS SUMMARY | ~2018-12-24 | XMS | Encounter Summary ---
Demographics + + + | Address | [address] | | | [place] [address] | + + + | Home Phone | | + + + | Preferred Language | Unknown | + + + | Marital Status | | + + + | Cheondoism Affiliation | Unknown | + + + | Race | Unknown | + + + | Ethnic Group | Unknown | + + + Author + + + | Author | [employer] | + + + | Organization [...] Team Providers + +------+ + | Care Laborer Turkey Farm Name | Role | Phone | + +------+ + | Josh Mendoza DO | PCP | | + +------+ + Encounter Details +--------+ + + + + | Date | Type | Department | Care Team | Description | +--------+ + + + + | 12/09/ | Anesthesia | [facility] | Tariq Mullins, | | | 2019 | Event | [facility] | LIFE INSURANCE UNDERWRITER [address] | | | | | Operating Room [address] | [place] [address] | | | | | [address] | | | | | | [place] [address] | | | | | | [phone] | | | +--------+ + + + + Anesthesia Record + + + + + | Procedure Name | Responsible | Anesthesia Start | Anesthesia Stop Time | | | Anesthesiologist | Time | | + + + + + | CYSTOSCOPY - TURB | Tariq Mullins, | 12/09/18 0912 | 12/09/18 1036 | | (N/A Urethra) | LIFE INSURANCE UNDERWRITER | | | + + + + [...] | | Date: 12/09/18; Removal Time: | LIFE INSURANCE UNDERWRITER | | | | 1305; Mask Airway: [...] Mullins, | | Paulette | | | LIFE INSURANCE UNDERWRITER | | er | | | | [...] | | | | | [address] | | | | | | [place] [address] | | | | | | [phone] | | | | | | | | +--------+ + + + + | 02/22/ | Office | Cardiology | Juan Hardy | | | 2019 | Visit | | [address] | | | | | | [address] | | | | | | [place] [address] | | | | | | [phone] | | | | | | | [...]
--- OUTSIDE RECORDS SUMMARY | ~2018-12-24 | XMS | Encounter Summary ---
Demographics + + + | Address | [address] | | | [place] [address] | + + + | Home Phone | | + + + | Preferred Language | Unknown | + + + | Marital Status | | + + + | Synagogue Affiliation | Unknown | + + + | Race | Unknown | + + + | Ethnic Group | Unknown | + + + Author + + + | Author | [employer] | + + + | Organization | [facility] | + + + [...] Team Providers + +------+ + | Care Ward Assistant Name | Role | Phone | + +------+ + | Josh Mendoza DO | PCP | | + +------+ + Encounter Details +--------+ + + + + | Date | Type | Department | Care Team | Description | +--------+ + + + + | 12/08/ | Orders Only | [facility] | Alex San MD | | | 2019 | | [facility] | [address], | | | | | [address] | [place] [facility] | | | | | [place] [address] | [address] | | | | | [phone] | | | +--------+ + + + [...] | | | | | [address] | | | | | | [place] [address] | | | | | | [phone] | | | | | | | | +--------+ + + + + | 02/22/ | Office | Cardiology | Juan Hardy | | | 2019 | Visit | | [address] | | | | | | [address] | | | | | | [place] [address] | | | | | | [phone] | | | | | | | | +--------+ + + + + | 02/22/ | Documentati | Cardiology | | | | 2019 | on Only | | | | +--------+ + + + + as of this encounter Visit Diagnoses Not on filein this encounter"
--- OUTSIDE RECORDS SUMMARY | ~2018-12-24 | XMS | Encounter Summary ---
Demographics + + + | Address | [address] | | | [place] [address] | + + + | Home Phone | | + + + | Preferred Language | Unknown | + + + | Marital Status | | + + + | Sabianism Affiliation | Unknown | + + + | Race | Unknown | + + + | Ethnic Group | Unknown | + + + Author + + + | Author | [employer] | + + + | Organization [...] Team Providers + +------+ + | Care Electric Utility Lineworker Name | Role | Phone | + +------+ + | Josh Mendoza DO | PCP | | + +------+ + Encounter Details +--------+ + + + + | Date | Type | Department | Care Team | Description | +--------+ + + + + | 12/09/ | Hospital | [facility] | Alex San MD | Benign bladder mass | | 2019 | Encounter | [facility] | [address], | | | | | [address] [facility] | [place] | | | | | [place] [address] | [address] | | | | | [phone] | | | +--------+ + + + [...] 8pounds. Don t lift weights. Don t pickle pumper infants or children. Don t mow the lawn or use a vacuum cleaner housekeeping. Avoid constipation. Use a laxative or stool [...] won t go away Date Last Reviewed: 09/13/201619990979-1625 [employer]. [address] [place] [address]. All righ ts reserved. This information is [...] Weakness, dizziness, or fainting Date Last Reviewed: 06/13/201619998516-2257 [employer]. [address] [place] [address]. All righ ts reserved. This information is not intended as a substitute for professional medical care. Always follow your healthcare professional's instructions. Acetaminophen; Hydrocodone tablets or capsules Brand Names: Anexsia, Lorcet, Lorcet HD, Lorcet Plus, Lortab, [place], Verdrocet, Vicodin, Vi codin ES, Vicodin HP, [...] information carefully each time. Talk to your rn shift mgr regarding the use of this medicine in children. Special care may be needed. What side effects may I notice from receiving this medicine? Side effects that you should report to your doctor or health medicare specialist as soon as p ossible: allergic reactions [...] attention (report to your doctor or health medicare specialist if they continue or are bothersome): constipation [...] to an official disposal site. Contact the [facility] at [phone] or your [facility] government to find a site. If [...] this medicine? Tell your doctor or health medicare specialist if your pain does not go away, [...] pharmacist, or health care provider. Copyright 2019 [employer] After Your Surgery You ve just had [...] | | | | | [address] | | | | | | [place] [address] | | | | | | [phone] | | | | | | | | +--------+ + + + + | 02/22/ | Office | Cardiology | Juan Hardy | | | 2018 | Visit | | [address] | | | | | | [address] | | | | | | [place] [address] | | | | | | [phone] | | | | | | | [...] TUMOR SPECIMEN SOURCE: A. BLADDER TUMOR | [facility] | | CLINICAL HISTORY: Bladder tumor. [...] | | TCC. COMMENT: As part of [employer]' Quality Improvement | | | Program, this [...] | | | component was performed by [employer], [address] [place] [address], | | | [facility] [address] (Acid Polymerization Operator: Lorraine Ku MD; CLIA# [id number]). | | | Professional interpretation was performed by [facility], | | | [facility], [address] [place] [address] | | | (Acid Polymerization Operator: Radu Velasco M.D.; DELILAH#: [id number]). | | | Diagnostician: Lorraine Ku MD Pathologist Electronically Signed | | | 12/12/2018 | | + + + + +---------+ + + | Performing | Address | City/State/Zipcode | Phone Number | | Organization | | | | + +---------+ + + | [facility] | | | | + +---------+ [...] | + + + + + | [facility] | [address] | [place] [address] | | + + + + + [...]
--- OUTSIDE RECORDS SUMMARY | ~2018-12-24 | XMS | Encounter Summary ---
Demographics + + + | Address | [address] | | | [place] [address] | + + + | Home Phone | | + + + | Preferred Language | Unknown | + + + | Marital Status | | + + + | Congregation Affiliation | Unknown | + + + | Race | Unknown | + + + | Ethnic Group | Unknown | + + + Author + + + | Author | [employer] [employer] | + + + | Organization | [facility] | + + + [...] Team Providers + +------+ + | Care Judo Instructor Name | Role | Phone | + +------+ + | Josh Mendoza DO | PCP | | + +------+ + Encounter Details +--------+ + + + + | Date | Type | Department | Care Team | Description | +--------+ + + + + | 12/08/ | Orders Only | [facility] | Alex San MD | | | 2019 | | [facility] | [address], | | | | | [address] | [place] [facility] [place] | | | | | [place] [address] | [address] | | | | | [phone] | | | +--------+ + + + [...] | | | | | [place] [address] | | | | | | [phone] | | | | | | | | +--------+ + + + + | 02/22/ | Office | Cardiology | Juan Hardy | | | 2019 | Visit | | [address] | | | | | | [address] | | | | | | [place] [address] | | | | | | [phone] | | | | | | | | +--------+ + + + + | 02/22/ | Documentati | Cardiology | | | | 2019 | on Only | | | | +--------+ + + + + as of this encounter Visit Diagnoses Not on filein this encounter"
--- OUTSIDE RECORDS SUMMARY | ~2018-12-24 | XMS | Encounter Summary ---
Demographics + + + | Address | [address] | | | [...] + + + | Author | [facility] [employer] | + + + | Organization | [facility] | + + + | [...] Team Providers + +------+ + | Care Nuclear Equipment Test Engineer Name | Role | Phone | [...] + + | 11/21/ | Office | [facility] | Juan Hardy | Paroxysmal atrial | | 2019 | Visit | Cardiology [place] | MD [address] | fibrillation ([facility]) | | | | [address] | [address] | (Primary Dx); | | | | [place], [place] | [place] [address] | 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 Moravian a nd maintenance of sinus rhythm was [...] thrombus and cardioversion was perfor med with hindu of an atrial paced rhythm. He was then started on amiodarone and is no w on 200 mg daily. Unfortunately, atrial fibrillation recurred approximately 3-4 days follo wing cardioversion based on device diagnostics and symptoms amiodarone was then further load ed and he underwent cardioversion more recently with hindu of an atrial paced rhythm. He continues [...] more effective cardi ac resynchronization therapy with hindu and maintenance of sinus rhythm. 4) Left [...] 2 | | | | | | [place] [address] | | | | | | [phone] | | | | | | | | +--------+ + + + + | 02/22/ | Office | Cardiology | Juan Hardy | | | 2018 | Visit | | [address] | | | | | | [address] | | | | | | [place] [address] | | | | | | [phone] | | | | | | | [...]
--- OUTSIDE RECORDS SUMMARY | 2018-12-24 07:06 | XMS ---
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 E.[facility]ory V[facility] (12 MO.) [facility] [address] TOTAL 3 NOTE: Visits indicate total known visits. ED/C VISIT TRACKING (12 MO.) 12/24/2018 07:03 [facility] TYPE: Emergency COMPLAINT: - WEAKNESS/URINE PROBLEM 12/11/2018 10:29 [facility] TYPE: Emergency DIAGNOSES: - Post-op Problem - Unspecified abdominal pain - Flank pain - Hematuria, unspecified 06/20/2018 18:19 [facility] DIAGNOSES: - Cellulitis of right lower limb - Rash - Leg Swelling - Cellulitis of left lower limb INPATIENT VISIT TRACKING (12 MO.) 06/20/2018 18:19 [facility] DIAGNOSES: - Cellulitis of left lower limb - Acute on chronic systolic (congestive) heart failure - Cellulitis of right lower limb [email or web address]
--- NOTE | 2018-12-24 19:54 | EKG ---
[facility] [address] [place] [address] Signed AV dual-paced rhythm with occasional premature ventricular complexes Abnormal ECG No previous ECGs available Confirmed by YOLY HEARN MD ([id number]) on 12/24/2018 7:54:28 PM Electronically Signed By: YOLY HEARN MD 12/24/181953 PATIENT NAME: BERNARDO ELLIS Electrocardiogram DATE OF : 36 PHYSICIAN: YOLY HEARN MD REPORT #: [id number] REPORT IS CONFIDENTIAL AND NOT TO BE RELEASED WITHOUT AUTHORIZATION
== END 2018-12-24 12:10 | disposition short-term general hospital (02) ==
LOC: ED 07:03
DX: N17.9 Acute kidney failure, unspecified (principal); R55 Syncope and collapse; N13.5 Crossing vessel and stricture of ureter without hydronephrosis; I11.0 Hypertensive heart disease with heart failure; I50.9 Heart failure, unspecified; Z87.891 Personal history of nicotine dependence
CPT/HCPCS: 51702; 51798; 71045; 74176; 80053; 83735; 84484; 85025; 93005; 93010; 99285-25; J7040